=== PATIENT | female | born 1955 | race Caucasian/White ===

== ENCOUNTER → 2016-08-20 | Outpatient (CLI) | payer MEDICARE, OTHER ==
--- NOTE | 2016-08-20 15:20 | CT ---
EXAMINATION TYPE: CT chest w con DATE OF EXAM: 08/20/2016 COMPARISON: NONE HISTORY: Chest pains, chest wall pain CT DLP: 235.3 mGycm, Automated exposure control for dose reduction was used. CONTRAST: Performed injected with 100 mL of Omnipaque 300. TECHNIQUE: Axial images were obtained at 5 mm thick sections. Reconstructed images are reviewed on [employer] computer in the coronal plane. FINDINGS: Portion of the thyroid visualized is normal. No suspicious lung nodules or focal infiltrates are present. Some minimal scarring and possible pneum atocele may be within the right mid lung adjacent to the major fissure. No enlarged mediastinal or hilar adenopathy is evident. The ascending aorta diameter at the level o f the main pulmonary artery is 2.9 cm. The main pulmonary artery diameter at the bifurcation is 2.[address] sections are obtained through the upper abdomen. Abdomen is essentially unremarkable. IMPRESSIONS: 1. Normal Chest CT.
== END | disposition home or self-care (01) ==
LOC: RADCTMAIN 14:33
PROVIDERS: ATTEND Internal Medicine Critical Care Medicine
DX: R07.89 Other chest pain (principal); Z88.5 Allergy status to narcotic agent
CPT/HCPCS: 71260; Q9967

== ENCOUNTER → 2017-01-28 | Outpatient (CLI) | payer MEDICARE, OTHER ==
--- NOTE | 2017-01-28 13:11 | WWHP ---
[facility] - HISTORY AND PHYSICAL DATE OF SERVICE: 01/28/2017 CHIEF COMPLAINT: The patient is here for her routine gynecologic exam. HPI: This is a 61-year-old, G2, P2, with an LMP of 1995, who is status post SAEED for uterine fibroids. The patient states it has been more than 10 years since her last pelvic exam. She has noticed a vulvar growth for at least the last 6 months. She nicked this area shaving, which caused it to bleed and this brought it more to her attention. She states it is not painful. She occasionally rubs against it and this can be bothersome. There has been no drainage or redness. She states it is on the left side about a quarter of an inch from the inner labia. She states it is slightly less than dime size and also seems to have a skin tag growing from it. PAST MEDICAL HISTORY: COPD, seasonal allergies, and chronic back problems. MEDICATIONS: Benadryl 1 p.r.n., ibuprofen 200 mg p.r.n. ALLERGIES: CODEINE, which cause pruritus. PAST SURGICAL HISTORY: Lung surgery to drain an infection in 2008, appendectomy 2010, colonoscopy 2011, section x2. PAST OB HISTORY: x2. PAST SECURITIES CLERK HISTORY: She has no history of STDs. She is status post SAEED in 1995 for uterine fibroids and this was benign. She has never used HRT. SOCIAL HISTORY: She denies tobacco and drug use and rarely drinks alcohol about 2 drinks per year. She is and is not seeing anybody and is not sexually active for more than 2 years. She is considered disabled. FAMILY HISTORY: Son and father had diabetes. Mother and father had lung cancer and they were both smokers. Father also developed bone cancer. REVIEW OF SYSTEMS: She believes she has gained about 20 pounds over the last 2 years. She denies respiratory or cardiac problems. GI: She does have problems with constipation, especially with certain foods. PHYSICAL EXAM: Blood pressure 136/78, height 4 feet 11 inches, weight 152 pounds, temperature 97.5, pulse 80. This is a short-statured, well-nourished white female who is alert and oriented x3, in no acute distress. HEENT is within normal limits. NECK: Supple without mass or thyromegaly. CHEST AND LUNGS: Clear to auscultation. HEART: Regular rate and rhythm. Breasts are without mass or discharge. Axillary exam is negative for adenopathy. BACK: Negative for CVA tenderness. ABDOMEN: Soft, nontender, without palpable masses. PELVIC EXAM: External genitalia reveals a growth on the left side near the anterior aspect of the introitus. This is approximately 3 cm from the introitus. This is on the labia majora, lateral and inferior to the clitoris. This measures approximately 12 x 9 mm and is raised with a slightly irregular texture. There is also a smaller tag protruding from the medial aspect of the lesion which measures approximately 4 x 4 mm. This is nontender and nonerythematous. There is no drainage. External genitalia also reveals mild atrophy, but there are no other lesions. The vagina reveals mild atrophy without lesions. There is no evidence of prolapse. Bimanual exam reveals a central mass in the area of the cul-de-sac. This measures approximately 4 x 4 cm. This is somewhat firm and nontender. There are no other pelvic masses noted. Rectovaginal exam confirms a pelvic mass and this is not consistent with a rectal stool, but may represent colonic stool above the rectum. There are no rectal masses or tenderness and rectal exam is negative for occult blood. EXTREMITIES: Nontender. IMPRESSION: 1. A 61-year-old menopausal female status post total abdominal hysterectomy for benign reasons. 2. Vulvar lesion to the left of the midline measuring approximately 1.2 cm x 0.9 cm. 3. Pelvic mass noted on pelvic exam. Differential diagnoses will include colonic stool, ovarian growth or other non-SECURITIES CLERK mass. I believe this most likely represents colonic stool, especially with her history of constipation. PLAN: 1. Pap smears have been discontinued. 2. Self breast examination was discussed. 3. Mammogram is recommended and she states she has an appointment for this on 02/17/2017. An order slip was given to the patient for this. 4. The patient will be scheduled for pelvic ultrasound to further evaluate the pelvic mass. 5. The patient will be scheduled to have the vulvar growth removed and this will be sent to be sent for pathological examination at that time. 6. She will return in 1 year as well. MMODL / IJN: [id number] / [facility]
== END ==
LOC: WWCWWP 09:59
PROVIDERS: ATTEND Internal Medicine
DX: Z01.419 Encounter for gynecological examination (general) (routine) without abnormal findings (principal)

== ENCOUNTER → 2017-02-18 | Outpatient (CLI) | payer MEDICARE, OTHER ==
--- NOTE | 2017-02-18 11:48 | US ---
EXAMINATION TYPE: US transvaginal DATE OF EXAM: 02/18/2017 COMPARISON: NONE CLINICAL HISTORY: R19.00 Pelvic Mass. Hysterectomy (patient unsure if complete vs. partial), pelvic mass felt during pelvic exam, history of constipation TECHNIQUE: Transvaginal (TV) Date of LMP: unknown EXAM MEASUREMENTS: Uterus: Surgically absent Endometrial Stripe: Surgically absent Right Ovary: unable to visualize Left Ovary: unable to visualize 1. Uterus: Surgically absent 2. Endometrium: Surgically absent 3. Right Ovary: Obscured by overlying bowel gas vs. surgically absent 4. Left Ovary: Obscured by overlying bowel gas vs. surgically absent 5. Bilateral Adnexa: wnl Remnant uterus nor ovaries clearly identified. IMPRESSION: Unremarkable study.
--- NOTE | 2017-02-18 13:35 | P.PCN ---
Date of Procedure: 02/18/17 Preoperative Diagnosis: Symptomatic vulvar lesion of uncertain behavior Postoperative Diagnosis: Same Procedure(s) Performed: Excision of vulvar lesion Anesthesia: local Surgeon: Jun Mckenna Estimated Blood Loss (ml): 2 Pathology: other (Vulvar lesion) Condition: stable Disposition: same day Indications for Procedure: This was a 61-year-old menopausal female has noticed a vulvar growth for at least 6 months. She states this has become a problem for her since she nicked the area when shaving and this can cause bleeding. She feels it has gotten bigger over time. Operative Findings: The vulvar lesion was at the anterior left aspect of the vulva approximately 3 cm from the introitus lateral to the clitorus. It measured approximately [id number] mm and is raised with a slightly irregular texture. There is also an irregular tag protruding from the medial aspect of the lesion which measures approximately 4x4mm. Description of Procedure: The procedure as well as possible risks were discussed with the patient. All of her questions were answered. The patient was placed in the lithotomy position. The area was prepped with Betadine solution. Approximately 2 mL of 1 % lidocaine was used for local anesthesia. Following the termination of adequate anesthesia the lesion was excised with a scalpel. This was a full thickness excision. Silver nitrate was used to stop bleeding. 4-0 undyed Vicryl suture was used to close the incision in an interrupted fashion. Two stitches were placed and these were full thickness stitches. Hemostasis was obtained. Antibiotic ointment was applied and dressing with paper tape was also applied. The patient tolerated the procedure well. There were no complications.
== END | disposition home or self-care (01) ==
LOC: RADUSWWP 10:15
PROVIDERS: ATTEND Obstetrics & Gynecology
DX: A63.0 Anogenital (venereal) warts (principal)
CPT/HCPCS: 11422; 76830; 88305

== ENCOUNTER → 2017-05-28 | Outpatient (CLI) | payer MEDICARE, OTHER ==
--- NOTE | 2017-05-28 15:07 | NM ---
Nuclear medicine hepatobiliary scan. HISTORY: Pain. DOSAGE: The patient received 8 ounces ensure plus and 5.1 mCi of Technetium 99m Choletec. FINDINGS: There is normal hepatic extraction. The gallbladder is seen by 20 minutes. There is a pedro iary to bowel clearance not seen by 60 minutes. Ejection fraction is 21%. IMPRESSION: 1. Delayed biliary to bowel clearance with abnormal ejection fraction of 21%. Correlate for biliary d yskinesia.
== END | disposition home or self-care (01) ==
LOC: RADNMMAIN 12:58
PROVIDERS: ATTEND Surgery
DX: R93.2 Abnormal findings on diagnostic imaging of liver and biliary tract (principal); K81.1 Chronic cholecystitis
CPT/HCPCS: 78227; A9537; J2805

== ENCOUNTER 2017-06-11 09:04 | Day surgery (SDC) | payer MEDICARE, OTHER ==
[2017-06-10 10:18] VITALS: BMI 29.2
[~2017-06-11 09:04] MED LIST: DEXAMETHASONE SOD PHOSPHATE 10 MG/ML 1 ML VIAL IV ONE; FAMOTIDINE 20 MG/2 ML VIAL IV PRN; HEPARIN SODIUM,PORCINE 5,000 UNIT/ML 1 ML VIAL SQ ONE; LIDOCAINE 1% 20 ML VIAL (10MG/ML) FOR IV START INTRADERMA PRN; MIDAZOLAM 2 MG/2 ML VIAL IV PRN; ONDANSETRON 4 MG/2 ML VIAL IVP ONE; ceFAZolin IN SWFI 2 GM/20 ML SYRINGE IVP ONE; fentaNYL (PF) 50 MCG/ML 2 ML AMP IV PRN
[2017-06-11] MEDS: LACTATED RINGERS 1,000 ML IV SCH (10:11)
[2017-06-11] MEDS ORDERED: LIDOCAINE 1% 20 ML VIAL (10MG/ML) FOR IV START INTRADERMA ONE (10:11)
[2017-06-11] MEDS ORDERED: SCOPOLAMINE 1.5MG/72HR PATCH TRANSDERM ONE (10:21)
--- NOTE | 2017-06-11 10:47 | P.GSHP ---
History of Present Illness H&P Date: 06/11/17 Chief Complaint: Right upper quadrant pain This a 61-year-old female who presents today for laparoscopic cholecystectomy. His abdominal pain. Her recent HIDA scan shows abnormal ejection fraction consistent with chronic cholecystitis. Past Medical History Past Medical History: COPD, Osteoarthritis (OA) Additional Past Medical History / Comment(s): anemia, vertigo, occasional heartburn History of Any Multi-Drug Resistant Organisms: None Reported Past Surgical History: Appendectomy, Section, Hysterectomy, Orthopedic Surgery Additional Past Surgical History / Comment(s): 2007-lung surg- "scraped inside of lung, had pneumonia really bad" Past Anesthesia/Blood Transfusion Reactions: No Reported Reaction Past Psychological History: No Psychological Hx Reported Smoking Status: Never smoker Past Alcohol Use History: None Reported Past Drug Use History: None Reported - Past Family History Father Family Medical History: Cancer, Diabetes Mellitus Mother Additional Family Medical History / Comment(s): emphysema Son(s) Family Medical History: Diabetes Mellitus, Dialysis Medications and Allergies Home Medications Medication Instructions Recorded Confirmed Type Pantoprazole [Protonix] 40 mg PO DAILY #30 tablet. 04/22/17 06/10/17 Rx Acetaminophen Tab [Tylenol Tab] 500 mg PO Q6H PRN 06/10/17 06/10/17 History Multivit-Min/FA/Lycopen/Lutein 1 each PO DAILY 06/10/17 06/10/17 History [Centrum Silver Tablet] Allergies Allergy/AdvReac Type Severity Reaction Status Date / Time codeine Allergy Itching Verified 06/10/17 10:03 Tetracyclines AdvReac Abdominal Verified 06/10/17 10:03 Pain Surgical - Exam Vital Signs Temp Pulse Resp BP Pulse Ox 96.8 F L 54 L 18 156/83 100 06/11/17 10:08 06/11/17 10:08 06/11/17 10:08 06/11/17 10:08 06/11/17 10:08 - General well developed, no distress - Eyes PERRL - ENT normal pinna - Neck no masses - Respiratory normal expansion - Cardiovascular Rhythm: regular - Abdomen Abdomen: soft, non tender Assessment and Plan Assessment: Chronic cholecystitis. We'll perform laparoscopically cholecystectomy
[2017-06-11] MEDS ORDERED: VECURONIUM 10 MG VIAL IV ONE (10:54)
[2017-06-11] MEDS ORDERED: MORPHINE SULFATE 10 MG/ML SYRINGE ONE (10:54)
[2017-06-11] MEDS ORDERED: MIDAZOLAM 2 MG/2 ML VIAL ONE (10:54)
[2017-06-11] MEDS ORDERED: fentaNYL (PF) 50 MCG/ML 2 ML AMP ONE (10:54)
[2017-06-11] MEDS ORDERED: PROPOFOL 10 MG/ML 20 ML VIAL IV ONE (10:54)
[2017-06-11] MEDS ORDERED: NEOSTIGMINE 1 MG/ML 10 ML VIAL ONE (10:54)
[2017-06-11] MEDS ORDERED: LIDOCAINE 1% INJ 10MG/ML (20 ML MDV) ONE (10:54)
[2017-06-11] MEDS ORDERED: NALOXONE 0.4 MG/ML 1 ML VIAL ONE (10:54)
[2017-06-11] MEDS ORDERED: hydrALAZINE HCL 20 MG/ML 1 ML VIAL ONE (10:54)
[2017-06-11] MEDS ORDERED: GLYCOPYRROLATE 0.2 MG/ML 2 ML VIAL ONE (10:54)
[2017-06-11] MEDS ORDERED: KETOROLAC 30 MG/ML 1 ML VIAL ONE (10:54)
[2017-06-11] MEDS ORDERED: BUPIVACAINE (PF) 0.25% 30 ML VIAL SQ ONE ×2 (11:06→11:07)
[2017-06-11] MEDS ORDERED: LACTATED RINGERS 1,000 ML IV ONE (11:29)
[2017-06-11] MEDS ORDERED: NALOXONE 0.4 MG/ML 1 ML VIAL IV PRN (11:29)
[2017-06-11] MEDS ORDERED: MORPHINE SULFATE/PF 10MG/10ML VL IVP PRN (11:29)
--- NOTE | 2017-06-11 11:29 | P.OP ---
Date of Procedure: 06/11/17 Preoperative Diagnosis: Cholecystitis Postoperative Diagnosis: Cholecystitis Procedure(s) Performed: Laparoscopic cholecystectomy Anesthesia: ONIEL Surgeon: Ion Olson Estimated Blood Loss (ml): 5 Pathology: other (Gallbladder) Condition: stable Disposition: PACU Description of Procedure: The patient was placed on the operating table. The patient received a general endotracheal tube anesthesia. The patients abdomen was prepped and draped in the usual sterile fashion. Through an infraumbilical stab incision, the fascia of the anterior abdominal wall was grasped with a pair of Kochers and then the Veress needle was placed in the peritoneal cavity. Position of the Veress needle was confirmed with positive drop test. The abdomen was then insufflated. After adequate insufflation, the 10 mm trocar was placed in the peritoneal cavity. Following this the laparoscope was placed in the peritoneal cavity. The patient was placed in the head-up, right side up position and then a 5 mm trocar was placed in the right lateral and right subcostal position under direct visualization. A 8 mm trocar was placed in the epigastric position. The gallbladder was grasped in the fundus and infundibulum. Traction on the gallbladder was placed in the lateral and the cephalad positions. The triangle of Calot was visualized.. The cystic duct was bluntly dissected until the union of the cystic duct and common bile duct was seen. The cystic duct was then divided and sealed with the Harmonic scissors. A PDS Endoloop was then placed throughout the cystic duct stump. The cystic artery divided and sealed with the Harmonic scissors. The gallbladder was then removed from the liver bed using Harmonic scissors. The gallbladder was then extracted through the epigastric port site. Operative field was checked for any bleeding spots and Harmonic scissors was used to coagulate the liver bed. The abdomen was irrigated. The trocars were removed. The skin was closed using interrupted 3-0 Vicryl suture. Dermabond dressing were applied. The patient tolerated the procedure well.
[2017-06-11] MEDS ORDERED: diphenhydrAMINE 50 MG/ML 1 ML VIAL IVP ONE (11:52)
[2017-06-11] MEDS: KETOROLAC 30 MG/ML 1 ML VIAL IVP SCH ×3 (13:49→23:04)
[2017-06-11] MEDS: HYDROcodone/APAP 5-325MG 1 EACH TAB PO PRN (18:47)
[2017-06-12] MEDS: KETOROLAC 30 MG/ML 1 ML VIAL IVP SCH ×2 (05:11→11:53)
[2017-06-12] MEDS: LACTATED RINGERS 1,000 ML IV SCH (06:28)
[2017-06-12] MEDS ORDERED: ENOXAPARIN 40 MG/0.4 ML SYRINGE SQ SCH (09:00)
--- NOTE | 2017-06-12 13:11 | P.DS ---
Providers Expected date of discharge: 06/12/17 Attending physician: Ion Olson Consults: 06/11/17 11:30 Consult Physician Routine Consulting Provider: Krystle Prieto Consult Reason/Comments: Medical management Do you want consulting provider notified?: Yes Primary care physician: Ephraim Vergara [facility] Course: 61-year-old female who presented for workup of a recent HIDA scan that showed an abnormal ejection fraction consistent with chronic cholecystitis. Patient underwent laparoscopic cholecystectomy done on June 11. No postop events. The day of discharge pain medication effective for pain control patient was ambulatory on the unit surgical incision sites were dry patient was felt to be stable and appropriate proceed with a discharge to home Impression discharge diagnosis Right upper quadrant pain suspect due to chronic cholecystitis Abnormal HIDA scan showing findings of an abnormal ejection consistent with chronic cholecystitis Postop laparoscopic cholecystectomy for chronic cholecystitis done on June 11 The above impression and plan of care have been discussed and directed by signing physician. Chasity Liz nurse practitioner acting as scribe for signing physician. Plan - Discharge Summary Discharge Rx Participant: Yes New Discharge Prescriptions: New Doxycycline Monohydrate [Monodox] 100 mg PO BID 3 Days #6 cap HYDROcodone/APAP 5-325MG [Wister 5-325] 1 each PO Q4H PRN #15 tab PRN Reason: Moderate To Severe Pain Continue Pantoprazole [Protonix] 40 mg PO DAILY #30 tablet. Multivit-Min/FA/Lycopen/Lutein [Centrum Silver Tablet] 1 each PO DAILY Acetaminophen Tab [Tylenol] 500 mg PO Q6H PRN PRN Reason: Pain Discharge Medication List Pantoprazole [Protonix] 40 mg PO DAILY #30 tablet. 04/22/17 [Rx] Acetaminophen Tab [Tylenol] 500 mg PO Q6H PRN 06/10/17 [History] Multivit-Min/FA/Lycopen/Lutein [Centrum Silver Tablet] 1 each PO DAILY 06/10/17 [History] Doxycycline Monohydrate [Monodox] 100 mg PO BID 3 Days #6 cap 06/12/17 [Rx] HYDROcodone/APAP 5-325MG [Wister 5-325] 1 each PO Q4H PRN #15 tab 06/12/17 [Rx] Follow up Appointment(s)/Referral(s): Jai Ye MD [Primary Care Provider] - 1 Week Ion Olson MD [STAFF PHYSICIAN] - 1 Week Patient Instructions/Handouts: *Surgery [facility] - ([facility]) Laparoscopic Cholecystectomy, *Surgery [facility] - (Anesthesia) Discharge Instructions Outpatient Surgery Activity/Diet/Wound Care/Special Instructions: No tub bath for six weeks. Shower daily. No lifting over 10 pounds for the next 6 weeks. Avoid episodes of constipation use [id number] stool softeners if needed. May use ice packs to surgical site. No driving while taking narcotic for pain. Discharge Disposition: HOME SELF-CARE
[2017-06-12] MEDS: HYDROcodone/APAP 5-325MG 1 EACH TAB PO PRN (13:49)
--- NOTE | 2017-06-12 14:24 | P.CONS ---
History of Present Illness - Reason for Consult Recommendations regarding antibiotics - History of Present Illness Patient was admitted for elective cholecystectomy patient's accessory underwent surgery no overnight events patient is ready to be discharged today and is being discharged today patient is comparing of cough with yellowish sputum production. Patient may have atelectasis leading to cough. Because of the concerns that patient has all give her 3 days of doxycycline to treat for bronchitis. Patient denied any dysuria nausea vomiting. Review of Systems REVIEW OF SYSTEMS: CONSTITUTIONAL: No fever, no malaise, no fatigue. HEENT: No recent visual problems or hearing problems. Denied any sore throat. CARDIOVASCULAR: No chest pain, orthopnea, PND, no palpitations, no syncope. PULMONARY: No shortness of breath, GASTROINTESTINAL: No diarrhea, no nausea, no vomiting, no abdominal pain. Normoactive bowel sounds. NEUROLOGICAL: No headaches, no weakness, no numbness. HEMATOLOGICAL: Denies any bleeding or petechiae. GENITOURINARY: Denies any burning micturition, frequency, or urgency. MUSCULOSKELETAL/RHEUMATOLOGICAL: Denies any joint pain, swelling, or any muscle pain. ENDOCRINE: Denies any polyuria or polydipsia. The rest of the 14-point review of systems is negative. Past Medical History Past Medical History: COPD, Osteoarthritis (OA) Additional Past Medical History / Comment(s): anemia, vertigo, occasional heartburn History of Any Multi-Drug Resistant Organisms: None Reported Past Surgical History: Appendectomy, Section, Hysterectomy, Orthopedic Surgery Additional Past Surgical History / Comment(s): 2007-lung surg right lung - "scraped inside of lung, had pneumonia really bad" Past Anesthesia/Blood Transfusion Reactions: No Reported Reaction Past Psychological History: No Psychological Hx Reported Smoking Status: Never smoker Past Alcohol Use History: None Reported Past Drug Use History: None Reported - Past Family History Father Family Medical History: Cancer, Diabetes Mellitus Additional Family Medical History / Comment(s): lung cancer Mother Additional Family Medical History / Comment(s): emphysema Son(s) Family Medical History: Diabetes Mellitus, Dialysis Medications and Allergies Home Medications Medication Instructions Recorded Confirmed Type Pantoprazole [Protonix] 40 mg PO DAILY #30 tablet. 04/22/17 06/10/17 Rx Acetaminophen Tab [Tylenol] 500 mg PO Q6H PRN 06/10/17 06/10/17 History Multivit-Min/FA/Lycopen/Lutein 1 each PO DAILY 06/10/17 06/10/17 History [Centrum Silver Tablet] Doxycycline Monohydrate [Monodox] 100 mg PO BID 3 Days #6 cap 06/12/17 Rx HYDROcodone/APAP 5-325MG [[place] 1 each PO Q4H PRN #15 tab 06/12/17 Rx 5-325] Allergies Allergy/AdvReac Type Severity Reaction Status Date / Time codeine Allergy Itching Verified 06/10/17 10:03 Tetracyclines AdvReac Abdominal Verified 06/10/17 10:03 Pain Physical Exam Vitals: Vital Signs Temp Pulse Pulse Resp BP Pulse Ox 06/12/17 09:23 97 06/12/17 08:00 20 06/12/17 07:41 98.2 F 56 L 20 120/65 96 06/12/17 00:05 98.2 F 58 L 16 117/58 96 06/11/17 20:00 98.3 F 62 18 141/78 94 L 06/11/17 15:30 49 L 122/74 06/11/17 15:15 53 L 117/72 06/11/17 15:00 56 L 117/67 06/11/17 14:45 60 106/63 06/11/17 14:30 55 L 112/68 Intake and Output 06/11/17 06/12/17 06/12/17 22:59 06:59 14:59 Intake Total 160 236 Balance 160 236 Intake: Intake, IV Titration 160 Amount Lactated Ringers 1,000 ml 160 @ 20 mls/hr IV .Q24H [facility] Rx#:[id number] Oral 236 Other: Voiding Method Toilet Toilet # Voids 1 1 PHYSICAL EXAMINATION: GENERAL: The patient is alert and oriented x3, not in any acute distress. Well developed, well nourished. HEENT: Pupils are round and equally reacting to light. EOMI. No scleral icterus. No conjunctival pallor. Normocephalic, atraumatic. No pharyngeal erythema. No thyromegaly. CARDIOVASCULAR: S1 and S2 present. No murmurs, rubs, or gallops. PULMONARY: Chest is clear to auscultation, no wheezing or crackles. ABDOMEN: Soft, nontender, nondistended, normoactive bowel sounds. No palpable organomegaly. MUSCULOSKELETAL: No joint swelling or deformity. EXTREMITIES: No cyanosis, clubbing, or pedal edema. NEUROLOGICAL: Gross neurological examination did not reveal any focal deficits. SKIN: No rashes. Assessment and Plan Plan: -Possibility Bronchitis and possible atelectasis: Patient will be discharged on 3 days of that segment. -Status post a cholecystectomy for biliary sludge and the patient is clinically doing well did them has gas and is being discharged today pain management as per surgical services. Patient is medically stable to be discharged
[2017-06-12] MEDS ORDERED: HYDROmorphone 2 MG TAB PO PRN (14:58)
[2017-06-12 15:21] VITALS: BP 149/75; PULSE 58; RESP 18; TEMP 99
== END 2017-06-12 15:37 | disposition home or self-care (01) ==
LOC: OR 09:04 → 3SUR 11:42 → OR 06-12 15:37
PROVIDERS: ATTEND Surgery
DX: K81.1 Chronic cholecystitis (principal); J44.9 Chronic obstructive pulmonary disease, unspecified; M19.90 Unspecified osteoarthritis, unspecified site; K21.9 Gastro-esophageal reflux disease without esophagitis; Z79.899 Other long term (current) drug therapy; Z88.5 Allergy status to narcotic agent; Z88.1 Allergy status to other antibiotic agents
CPT/HCPCS: 88304; 47562; J1200; J1644; J1100; J2405; J1650; J1885 ×2

== ENCOUNTER 2018-06-25 11:13 | Emergency (ER) | payer MEDICARE, OTHER ==
--- NOTE | 2018-06-25 11:40 | ED ---
Extremity Problem HPI - General Chief complaint: Extremity Problem,Nontraumatic Stated complaint: Lower Leg Pain Time Seen by Provider: 06/25/18 11:21 Source: patient, RN notes reviewed Mode of arrival: ambulatory Limitations: no limitations - History of Present Illness Initial comments: 62-year-old female presents emergency Department chief complaint of right leg pain. Patient states it has worsened over the last week denies any trauma. Patient is concerned about possible DVT. Patient has no history DVT or PE. Patient states that it is slightly worse when she walks or stands struck the day. She states she feels the pain behind her knee and her proximal calf region. She states it feels a charley horse. - Related Data Home Medications Medication Instructions Recorded Confirmed Multivit-Min/FA/Lycopen/Lutein 1 tab PO DAILY 06/10/17 06/25/18 [Centrum Silver Tablet] Ibuprofen [Motrin Ib] 400 mg PO Q6H PRN 06/25/18 06/25/18 Naproxen Sodium [Aleve] 220 mg PO DAILY PRN 06/25/18 06/25/18 Allergies Allergy/AdvReac Type Severity Reaction Status Date / Time codeine Allergy Itching Verified 06/25/18 11:44 Tetracyclines AdvReac Abdominal Verified 06/25/18 11:44 Pain Review of Systems ROS Statement: Those systems with pertinent positive or pertinent negative responses have been documented in the HPI. ROS Other: All systems not noted in ROS Statement are negative. Past Medical History Past Medical History: COPD, Osteoarthritis (OA) Additional Past Medical History / Comment(s): anemia, vertigo, occasional heartburn History of Any Multi-Drug Resistant Organisms: None Reported Past Surgical History: Appendectomy, Section, Cholecystectomy, Hysterectomy, Orthopedic Surgery Additional Past Surgical History / Comment(s): 2008-lung surg right lung - "scraped inside of lung, had pneumonia really bad" Past Anesthesia/Blood Transfusion Reactions: No Reported Reaction Past Psychological History: No Psychological Hx Reported Smoking Status: Never smoker Past Alcohol Use History: None Reported Past Drug Use History: None Reported - Past Family History Father Family Medical History: Cancer, Diabetes Mellitus Additional Family Medical History / Comment(s): lung cancer Mother Additional Family Medical History / Comment(s): emphysema Son(s) Family Medical History: Diabetes Mellitus, Dialysis General Exam Limitations: no limitations General appearance: alert, in no apparent distress Head exam: Present: atraumatic, normocephalic, normal inspection Respiratory exam: Present: normal lung sounds bilaterally. Absent: respiratory distress, wheezes, rales, rhonchi, stridor Cardiovascular Exam: Present: regular rate, normal rhythm, normal heart sounds. Absent: systolic murmur, diastolic murmur, rubs, gallop, clicks Extremities exam: Present: other (Tenderness the right, right popliteal region for range of motion neurovascular intact with equal pedal pulses no discoloration no discrepancy in temperature) Skin exam: Present: warm, dry, intact, normal color. Absent: rash Course Vital Signs 06/25/18 11:17 Temperature 98 F Pulse Rate 68 Respiratory 22 Rate Blood Pressure 153/89 O2 Sat by Pulse 99 Oximetry Medical Decision Making - Medical Decision Making 62-year-old female sent in for right leg, posterior knee pain. Patient's symptoms are consistent with a Parish's cyst negative for acute DVT. Patient will be discharged with follow-up with orthopedics return parameters were discussed. Disposition Clinical Impression: Leg pain, Bakers cyst Disposition: HOME SELF-CARE Condition: Stable Instructions (If sedation given, give patient instructions): Bakers Cyst (ED) Additional Instructions: Please return to the Emergency Department if symptoms worsen or any other concerns. Is patient prescribed a controlled substance at d/c from ED?: No Referrals: Jai Ye MD [Primary Care Provider] - 1-2 days Aric Shannon DO [Doctor of Osteopathic Medicine] - 1-2 days Time of Disposition: 12:39
[2018-06-25] MEDS ORDERED: KETOROLAC 60 MG/2 ML VIAL IM STA (12:11)
--- NOTE | 2018-06-25 12:17 | US ---
EXAMINATION TYPE: US venous doppler duplex LE RT DATE OF EXAM: 06/25/2018 11:34 AM COMPARISON: CLINICAL HISTORY: Pain. Generalized leg pain. No redness or swelling. No hx of blood clots or blood thinners. SIDE PERFORMED: Right TECHNIQUE: The lower extremity deep venous system is examined utilizing real time linear array sonog lina with graded compression, doppler sonography and color-flow sonography. VESSELS IMAGED: External Iliac Vein (EIV) Common Femoral Vein Deep Femoral Vein Greater Saphenous Vein * Femoral Vein Popliteal Vein Small Saphenous Vein * Proximal Calf Veins (* superficial vessels) Right Leg: Negative for DVT IMPRESSION: 1. No diagnostic evidence of DVT.
[2018-06-25] MEDS ORDERED: traMADol 50 MG STARTER PACK 3 TAB BTL PO STA (12:38)
[2018-06-25 13:06] VITALS: BP 127/74; PULSE 78; RESP 16; TEMP 98.1
== END 2018-06-25 13:04 | disposition home or self-care (01) ==
LOC: EC 11:13
DX: M71.21 Synovial cyst of popliteal space [Baker], right knee (principal); Z88.1 Allergy status to other antibiotic agents; Z88.5 Allergy status to narcotic agent
CPT/HCPCS: 93971; 99283; 96372; J1885

== ENCOUNTER 2018-06-30 12:48 | Emergency (ER) | payer MEDICARE ==
[2018-06-30 13:13] VITALS: TEMP 98.4
--- NOTE | 2018-06-30 14:48 | ED ---
General Adult HPI - General Chief complaint: Extremity Problem,Nontraumatic Stated complaint: Foot numbness Time Seen by Provider: 06/30/18 14:26 Source: patient, RN notes reviewed Mode of arrival: wheelchair Limitations: no limitations - History of Present Illness Initial comments: 62-year-old female presents to the emergency department for a chief complaint of right leg pain for about 1.5 weeks. Patient states the pain was a cramping in the calf and is now behind the right knee. Patient states her right foot feels numb as well and this started today. She states she has been keeping it elevated. Patient states she had an appointment with orthopedics for tomorrow but canceled this because she thought we could remove the Parish's cyst in the e mergency department today.Patient has no other complaints at this time including shortness of breath, chest pain, abdominal pain, nausea or vomiting, headache, or visual changes. - Related Data Home Medications Medication Instructions Recorded Confirmed Multivit-Min/FA/Lycopen/Lutein 1 tab PO DAILY 06/10/17 06/25/18 [Centrum Silver Tablet] Ibuprofen [Motrin Ib] 400 mg PO Q6H PRN 06/25/18 06/25/18 Naproxen Sodium [Aleve] 220 mg PO DAILY PRN 06/25/18 06/25/18 Allergies Allergy/AdvReac Type Severity Reaction Status Date / Time codeine Allergy Itching Verified 06/30/18 13:13 Tetracyclines AdvReac Abdominal Verified 06/30/18 13:13 Pain Review of Systems ROS Statement: Those systems with pertinent positive or pertinent negative responses have been documented in the HPI. ROS Other: All systems not noted in ROS Statement are negative. Past Medical History Past Medical History: COPD, Osteoarthritis (OA) Additional Past Medical History / Comment(s): anemia, vertigo, occasional heartburn History of Any Multi-Drug Resistant Organisms: None Reported Past Surgical History: Appendectomy, Section, Cholecystectomy, Hy sterectomy, Orthopedic Surgery Additional Past Surgical History / Comment(s): 2007-lung surg right lung - "scraped inside of lung, had pneumonia really bad" Past Anesthesia/Blood Transfusion Reactions: No Reported Reaction Past Psychological History: No Psychological Hx Reported Smoking Status: Never smoker Past Alcohol Use History: None Reported Past Drug Use History: None Reported - Past Family History Father Family Medical History: Cancer, Diabetes Mellitus Additional Family Medical History / Comment(s): lung cancer Mother Additional Family Medical History / Comment(s): emphysema Son(s) Family Medical History: Diabetes Mellitus, Dialysis General Exam Limitations: no limitations General appearance: alert, in no apparent distress Head exam: Present: atraumatic, normocephalic, normal inspection Eye exam: Present: normal appearance, PERRL, EOMI. Absent: scleral icterus, conjunctival injection, periorbital swelling ENT exam: Present: normal exam, mucous membranes moist Neck exam: Present: normal inspection, full ROM. Absent: tenderness, meningismus, lymphadenopathy Respiratory exam: Present: normal lung sounds bilaterally. Absent: respiratory distress, wheezes, rales, rhonchi, stridor Cardiovascular Exam: Present: regular rate, normal rhythm, normal heart sounds. Absent: systolic murmur, diastolic murmur, rubs, gallop, clicks Extremities exam: Present: full ROM (Patient has full flexion and extension noted in the right knee and ankle.), tenderness (Due to started to the right calf and posterior knee, no tenderness noted in the groin or anterior knee.), normal capillary refill (Capillary refill less than 2 seconds, DP pulse 2+ in the right lower extremity and equal to the left lower extremity), calf tenderness (Patient does have calf tenderness without erythema or edema present.), other (Patient is intact in the right lower extremity). Absent: joint swelling (No edema, erythema, ecchymosis noted of the right lower extremity) Course Vital Signs 06/30/18 06/30/18 06/30/18 13:09 15:21 15:36 Temperature 98.4 F Pulse Rate 72 86 63 Respiratory 16 18 18 Rate Blood Pressure 218/94 152/83 201/97 O2 Sat by Pulse 98 98 97 Oximetry 06/30/18 17:30 Temperature Pulse Rate 60 Respiratory 18 Rate Blood Pressure 182/93 O2 Sat by Pulse 98 Oximetry Medical Decision Making - Medical Decision Making 62-year-old female presents to the emergency department for a chief complaint of right leg pain. Patient states this started in her calf and is now in her posterior knee. On exam patient is full range motion of the right knee. No erythema or edema present in the right lower extremity. Neurovascular status is intact. DP pulses 2+ in the right lower extremity. Patient was complaining of right leg tingling however has full sensation. Ultrasound was repeated. Patient did have an ultrasound done 5 days ago which was negative for DVT. This was repeated today again negative for DVT. At this time I do not see an emergent cause for leg pain. Patient should follow up with orthopedics at her appointment tomorrow. She should return here if she has any worsening symptoms. Disposition Clinical Impression: Leg pain, left Disposition: HOME SELF-CARE Condition: Good Instructions (If sedation given, give patient instructions): Leg Pain (ED) Additional Instructions: Please take Motrin and Tylenol for pain. Please follow-up with primary care or orthopedics in 1-2 days. Return here to the emergency department if you have any worsening symptoms. Is patient prescribed a controlled substance at d/c from ED?: No Referrals: Jai Ye MD [Primary Care Provider] - 1-2 days Roney De La Rosa MD [STAFF PHYSICIAN] - 1-2 days Time of Disposition: 14:47
[2018-06-30 15:21] VITALS: RESP 18
[2018-06-30] MEDS ORDERED: MORPHINE SULFATE 4 MG/ML SYRINGE IM STA (15:54)
--- NOTE | 2018-06-30 17:05 | US ---
EXAMINATION TYPE: US venous doppler duplex LE RT DATE OF EXAM: 06/30/2018 4:39 PM COMPARISON: US 5 days ago CLINICAL HISTORY: Pain. right popliteal fossa pain SIDE PERFORMED: Right TECHNIQUE: The lower extremity deep venous system is examined utilizing real time linear array sonog lina with graded compression, doppler sonography and color-flow sonography. VESSELS IMAGED: Common Femoral Vein Deep Femoral Vein Greater Saphenous Vein * Femoral Vein Popliteal Vein Small Saphenous Vein * Proximal Calf Veins (* superficial vessels) Right Leg: Negative for DVT; Negative for popliteal Fossa Cyst. IMPRESSION: Normal right leg duplex venous sonogram. No evidence of popliteal cyst.
[2018-06-30 17:40] VITALS: BP 182/93; PULSE 60
== END 2018-06-30 19:06 | disposition home or self-care (01) ==
LOC: EC 12:48
DX: M79.604 Pain in right leg (principal); R20.0 Anesthesia of skin; R20.2 Paresthesia of skin; Z88.5 Allergy status to narcotic agent; Z88.1 Allergy status to other antibiotic agents
CPT/HCPCS: 93971; 99284; 96372; J2270

== ENCOUNTER 2018-11-29 13:40 | Emergency (ER) | payer MEDICARE ==
[2018-11-29 13:43] VITALS: TEMP 98.1
[2018-11-29] MEDS ORDERED: ONDANSETRON ODT 4 MG TAB PO STA (13:54)
[2018-11-29] MEDS ORDERED: KETOROLAC 60 MG/2 ML VIAL IM STA (13:54)
[2018-11-29] MEDS ORDERED: ORPHENADRINE 30 MG/ML 2 ML VIAL IM STA (13:55)
--- NOTE | 2018-11-29 13:58 | ED ---
General Adult HPI - General Chief complaint: Back Pain/Injury Stated complaint: Sciatica Pain, Nausea Time Seen by Provider: 11/29/18 13:46 Source: patient, RN notes reviewed Mode of arrival: ambulatory Limitations: no limitations - History of Present Illness Initial comments: Patient is a pleasant 63-year-old female presenting to the emergency Department with complaints of right sciatic pain. Patient does have history of old injury with a chip fracture. Symptoms have been severe over the past month or more. Patient has discomfort right sciatic region with radiation down her right leg. Patient does complain of tingling. No loss of sensation. No weakness. No incontinence or retention of bowel or bladder. Patient does have nausea associated with the discomfort. - Related Data Home Medications Medication Instructions Recorded Confirmed Multivit-Min/FA/Lycopen/Lutein 1 tab PO DAILY 06/10/17 11/29/18 [Centrum Silver Tablet] Previous Rx's Medication Instructions Recorded Cyclobenzaprine [Flexeril] 10 mg PO TID PRN #12 tablet 11/29/18 methylPREDNISolone Dose Pack 24 mg PO DAILY #1 tab 11/29/18 [Medrol Dose Pack] Allergies Allergy/AdvReac Type Severity Reaction Status Date / Time codeine Allergy Itching Verified 11/29/18 14:01 Tetracyclines AdvReac Abdominal Verified 11/29/18 14:01 Pain Review of Systems ROS Statement: Those systems with pertinent positive or pertinent negative responses have been documented in the HPI. ROS Other: All systems not noted in ROS Statement are negative. Constitutional: Denies: fever Eyes: Denies: eye pain ENT: Denies: ear pain Respiratory: Denies: cough Cardiovascular: Denies: chest pain Endocrine: Denies: fatigue Gastrointestinal: Denies: abdominal pain Genitourinary: Denies: dysuria Musculoskeletal: Reports: as per HPI, back pain Skin: Denies: rash Neurological: Denies: weakness Past Medical History Past Medical History: COPD, Osteoarthritis (OA) Additional Past Medical History / Comment(s): anemia, vertigo, occasional heartburn History of Any Multi-Drug Resistant Organisms: None Reported Past Surgical History: Appendectomy, Section, Cholecystectomy, Hysterectomy, Orthopedic Surgery Additional Past Surgical History / Comment(s): 2007-lung surg right lung - "scraped inside of lung, had pneumonia really bad" Past Anesthesia/Blood Transfusion Reactions: No Reported Reaction Past Psychological History: No Psychological Hx Reported Smoking Status: Never smoker Past Alcohol Use History: None Reported Past Drug Use History: None Reported - Past Family History Father Family Medical History: Cancer, Diabetes Mellitus Additional Family Medical History / Comment(s): lung cancer Mother Additional Family Medical History / Comment(s): emphysema Son(s) Family Medical History: Diabetes Mellitus, Dialysis General Exam Limitations: no limitations General appearance: alert, in no apparent distress Head exam: Present: atraumatic Eye exam: Present: normal appearance Neck exam: Present: normal inspection Respiratory exam: Present: normal lung sounds bilaterally Cardiovascular Exam: Present: regular rate, normal rhythm Expanded Peripheral pulses: 2+: Posterior Tibialis (R), Posterior Tibialis (L), Dorsalis Pedis (R), Dorsalis Pedis (L) GI/Abdominal exam: Present: soft. Absent: distended, tenderness, pulsatile mass Extremities exam: Present: normal inspection Back exam: Present: tenderness (Tenderness just lateral to the right sciatic region) Neurological exam: Present: alert. Absent: motor sensory deficit Expanded Motor strength exam: RLE: 5, LLE: 5 Psychiatric exam: Present: normal affect, normal mood Skin exam: Present: normal color Course Vital Signs 11/29/18 11/29/18 13:41 15:20 Temperature 98.1 F 98.1 F Pulse Rate 73 59 L Respiratory 18 17 Rate Blood Pressure 190/118 186/80 O2 Sat by Pulse 97 97 Oximetry Medical Decision Making - Medical Decision Making Patient reevaluated and resting comfortably in bed. Patient feels somewhat better. Blood pressure improved. Patient updated on results and need for follow-up. - Radiology Data Radiology results: report reviewed (Abdominal ultrasound reveals no acute process) Disposition Clinical Impression: Sciatica Disposition: HOME SELF-CARE Condition: Stable Instructions (If sedation given, give patient instructions): Sciatica (ED) Additional Instructions: Please follow-up with primary care physician in the next couple days for recheck. Consider physical therapy. Return for weakness, loss of control of bowel or bladder, worsening symptoms or other concerns. Please have primary care physician review blood pressure. Your prescription has been sent to [email or web address] Prescriptions: Cyclobenzaprine [Flexeril] 10 mg PO TID PRN #12 tablet PRN Reason: Pain methylPREDNISolone Dose Pack [Medrol Dose Pack] 24 mg PO DAILY #1 tab Is patient prescribed a controlled substance at d/c from ED?: No Referrals: Jai Ye MD [Primary Care Provider] - 1-2 days Time of Disposition: 15:35
--- NOTE | 2018-11-29 14:50 | US ---
EXAMINATION TYPE: US duplex aorta DATE OF EXAM: 11/29/2018 COMPARISON: NONE CLINICAL HISTORY: Back pain, evaluate aorta. EXAM MEASUREMENTS: Abdominal Aorta: Proximal: 1.7cm Mid: 1.5cm Distal: 1.0cm Bifurcation: 0.7cm 0.7cm Intimal thickening and atherosclerotic plaque suggested. IMPRESSION: Atherosclerotic changes with the aorta measuring within normal limits for size. If there is concern for aortic dissection than a dedicated CT scan would be recommended.
[2018-11-29 15:21] VITALS: BP 186/80; PULSE 59; RESP 17
== END 2018-11-29 15:56 | disposition home or self-care (01) ==
LOC: EC 13:40
DX: M54.31 Sciatica, right side (principal); R11.0 Nausea; R20.2 Paresthesia of skin; Z88.1 Allergy status to other antibiotic agents; Z88.5 Allergy status to narcotic agent
CPT/HCPCS: 93979; 99283; 96372 ×2; J2360; J1885

== ENCOUNTER 2019-02-27 13:14 | Emergency (ER) | payer MEDICARE ==
[2019-02-27 13:28] VITALS: RESP 18; TEMP 98.2
[2019-02-27] MEDS ORDERED: LORazepam 2 MG/ML INJ IV STA (13:43)
[2019-02-27] MEDS ORDERED: KETOROLAC 30 MG/ML 1 ML VIAL IVP STA (13:43)
--- NOTE | 2019-02-27 13:45 | ED ---
Back Pain HPI - General Chief Complaint: Back Pain/Injury Stated Complaint: Back pain Time Seen by Provider: 02/27/19 13:32 Source: patient Limitations: no limitations - History of Present Illness Initial Comments: This is a 63-year-old female history of sciatica who has had injections in her back in November this year who presents with complaints of right-sided pain in her low back and radiates all rebound or foot. His been coming for last day or so. She denies any dysuria and trouble bowel movements. Pain is very severe sharp in nature somewhat hernia also. Has/10 severity. She doesn't do much lifting she states except she does lift her grandchildren. No other modifying factors no other trauma. MD Complaint: back pain - Related Data Home Medications Medication Instructions Recorded Confirmed Multivit-Min/FA/Lycopen/Lutein 1 tab PO DAILY 06/10/17 11/29/18 [Centrum Silver Tablet] Previous Rx's Medication Instructions Recorded Cyclobenzaprine [Flexeril] 10 mg PO TID PRN #12 tablet 11/29/18 methylPREDNISolone Dose Pack 24 mg PO DAILY #1 tab 11/29/18 [Medrol Dose Pack] Ketorolac [Toradol] 10 mg PO Q6HR #20 tab 02/27/19 Allergies Allergy/AdvReac Type Severity Reaction Status Date / Time codeine Allergy Itching Verified 02/27/19 13:28 erythromycin base Allergy Unknown Verified 02/27/19 13:28 Tetracyclines AdvReac Abdominal Verified 02/27/19 13:28 Pain Review of Systems ROS Statement: Those systems with pertinent positive or pertinent negative responses have been documented in the HPI. ROS Other: All systems not noted in ROS Statement are negative. Past Medical History Past Medical History: COPD, Osteoarthritis (OA) Additional Past Medical History / Comment(s): anemia, vertigo, occasional heartburn History of Any Multi-Drug Resistant Organisms: None Reported Past Surgical History: Appendectomy, Section, Cholecystectomy, Hysterectomy, Orthopedic Surgery Additional Past Surgical History / Comment(s): 2007-lung surg right lung - "scraped inside of lung, had pneumonia really bad" Past Anesthesia/Blood Transfusion Reactions: No Reported Reaction Past Psychological History: No Psychological Hx Reported Smoking Status: Never smoker Past Alcohol Use History: Rare Past Drug Use History: None Reported - Past Family History Father Family Medical History: Cancer, Diabetes Mellitus Additional Family Medical History / Comment(s): lung cancer Mother Additional Family Medical History / Comment(s): emphysema Son(s) Family Medical History: Diabetes Mellitus, Dialysis General Exam - General Exam Comments Initial Comments: Is a well-developed well-nourished awake alert oriented 3 female Limitations: no limitations General appearance: alert, anxious, in distress Head exam: Present: atraumatic, normocephalic, normal inspection Eye exam: Present: normal appearance, PERRL, EOMI. Absent: scleral icterus, conjunctival injection, periorbital swelling ENT exam: Present: normal exam, mucous membranes moist Neck exam: Present: normal inspection, full ROM. Absent: tenderness, meningismus, lymphadenopathy Respiratory exam: Present: normal lung sounds bilaterally. Absent: respiratory distress, wheezes, rales, rhonchi, stridor Cardiovascular Exam: Present: regular rate, normal rhythm, normal heart sounds. Absent: systolic murmur, diastolic murmur, rubs, gallop, clicks GI/Abdominal exam: Present: soft, normal bowel sounds. Absent: distended, tenderness, guarding, rebound, rigid Extremities exam: Present: normal inspection, full ROM, normal capillary refill. Absent: tenderness, pedal edema, joint swelling, calf tenderness Back exam: Present: normal inspection, tenderness, other (Is palpation of the right SI joint area and right superior gluteus. No step-off or crepitation). Absent: full ROM Neurological exam: Present: alert, oriented X3, CN II-XII intact Psychiatric exam: Present: normal affect, normal mood Skin exam: Present: warm, dry, intact, normal color. Absent: rash Course Vital Signs 02/27/19 13:25 Temperature 98.2 F Pulse Rate 59 L Respiratory 18 Rate Blood Pressure 203/74 O2 Sat by Pulse 98 Oximetry Medical Decision Making - Medical Decision Making I did discuss [employer] the patient she is showing improvement after the medication was given. He will be discharged on a prescription of Toradol at her request. She is a follow-up with Dr. Howard as she has planned and return when necessary the patient's blood pressure was noted be elevated this is on the basis of pain and viral depletion clinically. - Radiology Data Radiology results: report reviewed (I did review the imaging and report degenerative changes no acute findings however.), image reviewed Disposition Clinical Impression: Sciatica, Dehydration Disposition: HOME SELF-CARE Condition: Good Instructions (If sedation given, give patient instructions): Acute Low Back Pain (ED), Sciatica (ED), Dehydration (ED) Prescriptions: Ketorolac [Toradol] 10 mg PO Q6HR #20 tab Is patient prescribed a controlled substance at d/c from ED?: No Referrals: Jai Ye MD [Primary Care Provider] - 1-2 days
[2019-02-27] MEDS ORDERED: HYDROmorphone 1 MG/ML 1 ML SYRINGE IVP STA (14:41)
[2019-02-27] MEDS ORDERED: HYDROmorphone 1 MG/ML 1 ML SYRINGE IM STA (14:44)
[2019-02-27] MEDS ORDERED: methylPREDNISolone SOD SUCCI 125 MG/2 ML VIAL IV STA (15:50)
[2019-02-27 15:52] VITALS: BP 193/74; PULSE 68
[2019-02-27] MEDS ORDERED: methylPREDNISolone SOD SUCCI 125 MG/2 ML VIAL IM ONE (15:52)
--- NOTE | 2019-02-27 16:17 | XR ---
EXAMINATION TYPE: XR lumbosacral spine min 4V DATE OF EXAM: 02/27/2019 CLINICAL HISTORY: Back pain TECHNIQUE: Frontal, lateral, and oblique images of the lumbar spine are obtained. COMPARISON: None FINDINGS/IMPRESSION: 5 lumbar type vertebral bodies. Vertebral body alignment is anatomic. Vertebral body heights are christy sly maintained. Degenerative changes are greatest in degree at L2-L3 characterized by moderate disc height loss and v ertebral body osteophyte formation. Lower lumbar spine predominantly facet arthrosis.
== END 2019-02-27 16:12 | disposition home or self-care (01) ==
LOC: EC 13:14
DX: M54.41 Lumbago with sciatica, right side (principal); E86.0 Dehydration; Z88.1 Allergy status to other antibiotic agents; Z88.5 Allergy status to narcotic agent
CPT/HCPCS: 72110; 99283; 96374; 96375; 96372 ×2; J2060; J2930; J1885; J1170

== ENCOUNTER 2019-03-01 11:23 | Emergency (ER) | payer MEDICARE ==
[2019-03-01] MEDS ORDERED: KETOROLAC 60 MG/2 ML VIAL IM STA (12:57)
[2019-03-01] MEDS ORDERED: HYDROmorphone 1 MG/ML 1 ML SYRINGE IM STA (12:57)
--- NOTE | 2019-03-01 13:26 | ED ---
Back Pain HPI - General Chief Complaint: Back Pain/Injury Stated Complaint: Back pain here yesterday Time Seen by Provider: 03/01/19 11:30 Source: patient Limitations: no limitations - History of Present Illness Initial Comments: The patient is a 59-year-old female with past medical history of sciatica who presents to the emergency room with reported right sciatic pain. If that she was diagnosed with sciatica approximately one year ago. She sees Dr. Anita bunch. She has received previous epidural injections. Last MRI was 3 months ago. He does admit to see him on and is supposed be getting an additional injection at this time. Reports that over the past several days her pain has been worse than normal. She denies any saddle anesthesia or bowel or bladder incontinence. No fevers or chills. Denies a history of IV drug use. Denies inability to ambulate. States that her symptoms are not new or worsened, just uncontrolled. She was seen in the emergency room yesterday. They did perform a lumbar x-ray which demonstrated no acute findings. Patient was in 1 Toradol. States that she hasn't been taking the medications. Her pain was so bad that she just came back into the emergency room for valuation. She denies any numbness or tingling into her lower extremity is. No trauma. Denies ripping or tearing sensation to her back. Denies dysuria, hematuria or difficulty voiding. Denies any diarrhea, constant patient, melanotic stools or hematochezia. There are no alleviating, Perceptin or modifying factors - Related Data Home Medications Medication Instructions Recorded Confirmed Multivit-Min/FA/Lycopen/Lutein 1 tab PO DAILY 06/10/17 03/01/19 [Centrum Silver Tablet] Previous Rx's Medication Instructions Recorded Cyclobenzaprine [Flexeril] 10 mg PO TID PRN #12 tablet 11/29/18 methylPREDNISolone Dose Pack 24 mg PO DAILY #1 tab 11/29/18 [Medrol Dose Pack] Ketorolac [Toradol] 10 mg PO Q6HR #20 tab 02/27/19 Hydrocodone/Acetaminophen [[place] 1 tab PO Q6HR PRN #12 tab 03/01/19 5-325] Allergies Allergy/AdvReac Type Severity Reaction Status Date / Time codeine Allergy Itching Verified 03/01/19 11:34 erythromycin base Allergy Unknown Verified 03/01/19 11:34 Tetracyclines AdvReac Abdominal Verified 03/01/19 11:34 Pain Review of Systems ROS Statement: Those systems with pertinent positive or pertinent negative responses have been documented in the HPI. ROS Other: All systems not noted in ROS Statement are negative. Past Medical History Past Medical History: COPD, Osteoarthritis (OA) Additional Past Medical History / Comment(s): anemia, vertigo, occasional heartburn, chronic back pain History of Any Multi-Drug Resistant Organisms: None Reported Past Surgical History: Appendectomy, Section, Cholecystectomy, Hysterectomy, Orthopedic Surgery Additional Past Surgical History / Comment(s): bronchoscopy Past Anesthesia/Blood Transfusion Reactions: No Reported Reaction Past Psychological History: No Psychological Hx Reported Smoking Status: Never smoker Past Alcohol Use History: Rare Past Drug Use History: None Reported - Past Family History Father Family Medical History: Cancer, Diabetes Mellitus Additional Family Medical History / Comment(s): lung cancer Mother Additional Family Medical History / Comment(s): emphysema Son(s) Family Medical History: Diabetes Mellitus, Dialysis General Exam Limitations: no limitations Course Vital Signs 03/01/19 03/01/19 11:30 13:53 Temperature 98.1 F 98.7 F Pulse Rate 72 75 Respiratory 18 16 Rate Blood Pressure 211/105 189/99 O2 Sat by Pulse 97 98 Oximetry Medical Decision Making - Medical Decision Making Upon arrival the patient was placed into room 8. A thorough history and physical exam was performed. Patient does not demonstrate any signs of cauda equina. She is seen ambulating to the restroom without difficulty. She is requesting sending for pain control. The patient was given a shot of Toradol and 1 mg of Dilaudid. I discussed performing imaging the patient however she refuses as this is her chronic pain. Patient is requesting something to take at home. She does see Dr. Howard however refused that she is in a pain contract. I will provide the patient with a short prescription for [place]. Side effect profile discuss. I did inform her that she needs to talk to Dr. Howard before filling the prescription as she could be taken off of her pain contract. The patient understood this. She is reevaluated and continues to have no weakness or numbness in her lower extremities. No issues with bowel or bladder function. The patient is to follow Dr. Howard on for further evaluation. Return to emergency room for any new or worsening symptoms. She was then discharged home ambulatory and condition Disposition Clinical Impression: Sciatica Disposition: HOME SELF-CARE Condition: Stable Instructions (If sedation given, give patient instructions): Acute Low Back Pain (ED) Additional Instructions: Please follow-up with your orthopedic doctor on for your scheduled injection. Return to the emergency room for any new or worsening symptoms Prescriptions: Hydrocodone/Acetaminophen [[place] 5-325] 1 tab PO Q6HR PRN #12 tab PRN Reason: Pain Is patient prescribed a controlled substance at d/c from ED?: Yes When asked, does pt state using other controlled substances?: No If prescribed controlled substance>3 days was MAPS reviewed?: Prescribed <3 Days If opioid is for acute pain is fill amount 7 days or less?: Yes If Rx opioid, was Start Talking consent form obtained?: Yes Referrals: Jai Ye MD [Primary Care Provider] - 1-2 days Triston Howard MD [STAFF PHYSICIAN] - 1-2 days Time of Disposition: 13:26
[2019-03-01 13:55] VITALS: BP 189/99; PULSE 75; RESP 16; TEMP 98.7
== END 2019-03-01 13:59 | disposition home or self-care (01) ==
LOC: EC 11:23
DX: M54.31 Sciatica, right side (principal); Z88.1 Allergy status to other antibiotic agents; Z88.5 Allergy status to narcotic agent
CPT/HCPCS: 99283; 96372 ×2; J1885; J1170

== ENCOUNTER 2019-03-07 08:50 | Emergency (ER) | payer MEDICARE ==
[2019-03-07 09:00] VITALS: TEMP 97.9
[2019-03-07] MEDS ORDERED: HYDROmorphone 1 MG/ML 1 ML SYRINGE IM STA (09:23)
--- NOTE | 2019-03-07 09:29 | ED ---
Back Pain HPI - General Chief Complaint: Back Pain/Injury Stated Complaint: back pain Time Seen by Provider: 03/07/19 09:02 Source: patient Limitations: physical limitation - History of Present Illness Initial Comments: Patient is a 63-year-old female presenting to the emergency Department with complaints of right sciatic pain that has been going on for the last week. Patient has been diagnosed with sciatica approximately one year ago and sees Dr. Howard for this. Patient received an epidural injection approximately 4 days ago which she states did not help. Patient had one approximately 3 months ago that did help. Patient states the Tangent she has at home also does not help. She has been doing heat and ice without relief. Patient states she does have an appointment with Dr. Black in a few weeks. Patient states they told her she can come into the office today however she was in too much pain and decided to come to the ER first. Patient states that her symptoms are not new or worsened, just uncontrolled. Patient was seen in the emergency room twice in the last week for the same thing. X-rays were done and shows no acute findings. Patient denies fever, chills, numbness and tingling into her lower extremities, dysuria, difficulty voiding, diarrhea. Patient has no other complaints at this time.upon arrival to the ER, vital signs are stable. - Related Data Home Medications Medication Instructions Recorded Confirmed Multivit-Min/FA/Lycopen/Lutein 1 tab PO DAILY 06/10/17 03/01/19 [Centrum Silver Tablet] Previous Rx's Medication Instructions Recorded Cyclobenzaprine [Flexeril] 10 mg PO TID PRN #12 tablet 11/29/18 methylPREDNISolone Dose Pack 24 mg PO DAILY #1 tab 11/29/18 [Medrol Dose Pack] Ketorolac [Toradol] 10 mg PO Q6HR #20 tab 02/27/19 Hydrocodone/Acetaminophen [[place] 1 tab PO Q6HR PRN #12 tab 03/01/19 5-325] Lidocaine 5% Patch [Lidoderm 5% 1 patch TOPICAL DAILY 5 Days #5 03/07/19 Patch] patch Methocarbamol [Robaxin] 750 mg PO TID #15 tab 03/07/19 Allergies Allergy/AdvReac Type Severity Reaction Status Date / Time codeine Allergy Itching Verified 03/01/19 11:34 erythromycin base Allergy Unknown Verified 03/01/19 11:34 Tetracyclines AdvReac Abdominal Verified 03/01/19 11:34 Pain Review of Systems ROS Statement: Those systems with pertinent positive or pertinent negative responses have been documented in the HPI. ROS Other: All systems not noted in ROS Statement are negative. Past Medical History Past Medical History: COPD, Osteoarthritis (OA) Additional Past Medical History / Comment(s): anemia, vertigo, occasional heartburn, chronic back pain History of Any Multi-Drug Resistant Organisms: None Reported Past Surgical History: Appendectomy, Section, Cholecystectomy, Hysterectomy, Orthopedic Surgery Additional Past Surgical History / Comment(s): bronchoscopy Past Anesthesia/Blood Transfusion Reactions: No Reported Reaction Past Psychological History: No Psychological Hx Reported Smoking Status: Never smoker Past Alcohol Use History: Rare Past Drug Use History: None Reported - Past Family History Father Family Medical History: Cancer, Diabetes Mellitus Additional Family Medical History / Comment(s): lung cancer Mother Additional Family Medical History / Comment(s): emphysema Son(s) Family Medical History: Diabetes Mellitus, Dialysis General Exam - General Exam Comments Initial Comments: GENERAL: Well-appearing, well-nourished and in no acute distress, although appears uncomfortable. HEAD: Atraumatic, normocephalic. EYES: Pupils equal round and reactive to light, extraocular movements intact, sclera anicteric, conjunctiva are normal. ENT: Moist mucous membranes. NECK: Normal range of motion, supple without lymphadenopathy or JVD. LUNGS: Breath sounds clear to auscultation bilaterally and equal. No wheezes rales or rhonchi. HEART: Regular rate and rhythm without murmurs, rubs or gallops. ABDOMEN: Soft, nontender, normoactive bowel sounds. No guarding, no rebound. No masses appreciated. EXTREMITIES: pain with palpation of the right gluteal, sciatic area. Sensation is equal in bilateral lower extremities. Patient has 5 out of 5 strength. No pitting or edema. No clubbing or cyanosis. NEUROLOGICAL: Normal speech, normal gait. PSYCH: Normal mood, normal affect. SKIN: Warm, Dry, normal turgor, no rashes or lesions noted. Limitations: physical limitation Course Vital Signs 03/07/19 08:57 Temperature 97.9 F Pulse Rate 67 Respiratory 19 Rate Blood Pressure 166/83 O2 Sat by Pulse 99 Oximetry Medical Decision Making - Medical Decision Making patient is 63-year-old female presenting with right sciatica symptoms. Patient sees Dr. Howard for this. This is the patient's third visit in 1 week for same complaint. Patient states the Tangent is not helping her symptoms. Exam today is consistent with right sciatica. Patient will be given Dilaudid for pain relief and will follow-up with Dr. Black today in the office. patient also given prescriptions for lidocaine patch as well as a different muscle relaxer per her request. Patient was instructed not to take Flexeril and Robaxin at the same time. Patient is agreement with this plan of care. There are no red flag symptoms.return parameters were discussed with the patient she verbalized understanding. Patient is stable for discharge. Disposition Clinical Impression: Sciatica Disposition: HOME SELF-CARE Condition: Stable Instructions (If sedation given, give patient instructions): Acute Low Back Pain (ED) Additional Instructions: Please return to the Emergency Department if symptoms worsen or any other concerns. Follow-up with Dr. Black as discussed. Prescriptions: Lidocaine 5% Patch [Lidoderm 5% Patch] 1 patch TOPICAL DAILY 5 Days #5 patch Methocarbamol [Robaxin] 750 mg PO TID #15 tab Is patient prescribed a controlled substance at d/c from ED?: No Referrals: Jai Ye MD [Primary Care Provider] - 1-2 days Dion Guadarrama DO [Doctor of Osteopathic Medicine] - 1-2 days
[2019-03-07 10:04] VITALS: BP 132/76; PULSE 76; RESP 16
== END 2019-03-07 10:02 | disposition home or self-care (01) ==
LOC: EC 08:50
DX: M54.31 Sciatica, right side (principal); Z88.5 Allergy status to narcotic agent; Z88.1 Allergy status to other antibiotic agents
CPT/HCPCS: 99283; 96372; J1170

== ENCOUNTER → 2019-03-17 | Outpatient (CLI) | payer MEDICARE ==
[2019-03-17 14:32] LABS: Basophils % (A) 0 %; Eosinophils # (A) 0.2 k/uL (0-0.7); Eosinophils % (A) 3 %; HCT 37.7 % (34.0-46.0); HGB 12.3 gm/dL (11.4-16.0); Lymphocytes # (A) 1.3 k/uL (1.0-4.8); Lymphocytes % (A) 21 %; MCH 29.7 pg (25.0-35.0); MCHC 32.7 g/dL (31.0-37.0); MCV 90.8 fL (80.0-100.0); Mean Platelet Volume 8.8; Monocytes # (A) 0.3 k/uL (0-1.0); Monocytes % (A) 4 %; Neutrophils # (A) 4.5 k/uL (1.3-7.7); Neutrophils % (A) 70 %; Platelet Count 221 k/uL (150-450); RBC 4.15 m/uL (3.80-5.40); RDW 12.7 % (11.5-15.5); WBC 6.4 k/uL (3.8-10.6)
[2019-03-17 14:34] LABS: Appearance,Urine Clear (Clear); Bilirubin,Urine Negative (Negative); Blood,Urine Negative (Negative); Color,Urine Yellow; Glucose,Urine (UA) Negative (Negative); Ketones,Urine Negative (Negative); Leukocyte Esterase,Urine Moderate (Negative); Mucus,Urine Rare /hpf; Nitrite,Urine Negative (Negative); Protein,Urine Trace (Negative); RBC,Urine 1 /hpf (0-5); Specific Gravity,Urine 1.029 (1.001-1.035); Squamous Epithelial Cell,Urine 4 /hpf (0-4); WBC,Urine 1 /hpf (0-5)
[2019-03-17 14:37] LABS: Partial Thromboplastin Time 23.2 sec (22.0-30.0); Prothrombin Time 10.6 sec (9.0-12.0)
--- NOTE | 2019-03-17 14:37 | XR ---
EXAMINATION TYPE: XR chest 2V DATE OF EXAM: 03/17/2019 COMPARISON: 04/18/2017 TECHNIQUE: PA and lateral views submitted. HISTORY: Presurgical FINDINGS: The lungs are clear and there is no pneumothorax, pleural effusion, or focal pneumonia. No overt fa ilure. Hypertrophic and degenerative change of the spine noted. IMPRESSION: 1. No acute process.
[2019-03-17 14:39] LABS: African American GFR (CKD) >90 (>60 ml/min/1.73 sqM); Anion Gap 7 mmol/L; Blood Urea Nitrogen 15 mg/dL (7-17); Calcium 9.3 mg/dL (8.4-10.2); Carbon Dioxide 25 mmol/L (22-30); Chloride 109 mmol/L (98-107); Glucose 123 mg/dL (74-99); Non-African American GFR(CKD) >90 (>60 ml/min/1.73 sqM); Potassium 4.4 mmol/L (3.5-5.1); Sodium 141 mmol/L (137-145)
== END | disposition home or self-care (01) ==
LOC: LABPAT 13:50
PROVIDERS: ATTEND Orthopaedic Surgery Orthopaedic Surgery of the Spine
DX: Z01.818 Encounter for other preprocedural examination (principal); Z01.812 Encounter for preprocedural laboratory examination; M54.16 Radiculopathy, lumbar region; M47.817 Spondylosis without myelopathy or radiculopathy, lumbosacral region; M51.24 Other intervertebral disc displacement, thoracic region
CPT/HCPCS: 36415; 71046; 80048; 81001; 85025; 85610; 85730; 86850; 86900; 86901; 93005

== ENCOUNTER 2019-03-24 11:20 | Emergency (ER) | payer MEDICARE ==
[2019-03-24] MEDS ORDERED: SODIUM CHLORIDE 0.9% 1,000 ML IV STA (11:43)
[2019-03-24] MEDS ORDERED: methylPREDNISolone SOD SUCCI 125 MG/2 ML VIAL IV STA (11:43)
[2019-03-24] MEDS ORDERED: IPRATROPIUM-ALBUTEROL 3 ML NEB INHALATION STA ×2 (11:43→13:44)
--- NOTE | 2019-03-24 11:54 | ED ---
SOB HPI - General Chief Complaint: Shortness of Breath Stated Complaint: Congestion Time Seen by Provider: 03/24/19 11:35 Source: patient, RN notes reviewed Mode of arrival: ambulatory Limitations: no limitations - History of Present Illness Initial Comments: This is a 63-year-old female with a history of COPD and right pneumothorax, sciatica also was currently being worked up for chest pain and possibly may also have a UTI which was discovered on her workup for her upcoming sciatica surgery who presents today with complaints of shortness of breath with anterior chest pain. She states she's had a cough mostly nonproductive but she did have smell from this morning she also states she had severe night sweats last night. She has exertional dyspnea the pain is in the middle of her chest somewhat sharp she's unable to quantify or qualify it any further. He does get worse with deep breathing and certain movements she has used her inhaler at home without any success he is also taking Mucinex. Patient denies any other modifying factors this time. MD Complaint: shortness of breath, cough, chest pain - Related Data Home Medications Medication Instructions Recorded Confirmed Multivit-Min/FA/Lycopen/Lutein 1 tab PO DAILY 06/10/17 03/18/19 [Centrum Silver Tablet] HYDROcodone/APAP 7.5-325MG [[place] 1 tab PO Q8HR PRN 03/18/19 03/18/19 7.5-325] Umeclidinium Brm/Vilanterol Tr 1 puff INHALATION DAILY PRN 03/18/19 03/18/19 [Anoro Ellipta 62.5-25 Mcg INH] amLODIPine [Norvasc] 5 mg PO DAILY 03/18/19 03/18/19 Previous Rx's Medication Instructions Recorded Methocarbamol [Robaxin] 750 mg PO TID #15 tab 03/07/19 Albuterol Inhaler [Ventolin Hfa 2 puff INHALATION Q6HR PRN #1 03/24/19 Inhaler] inhaler predniSONE 20 mg PO BID #10 tab 03/24/19 Allergies Allergy/AdvReac Type Severity Reaction Status Date / Time codeine Allergy Itching Verified 03/18/19 15:02 erythromycin base Allergy STOMACH Verified 03/18/19 15:02 PAIN Tetracyclines AdvReac Abdominal Verified 03/01/19 11:34 Pain Review of Systems ROS Statement: Those systems with pertinent positive or pertinent negative responses have been documented in the HPI. ROS Other: All systems not noted in ROS Statement are negative. Past Medical History Past Medical History: COPD, Osteoarthritis (OA) Additional Past Medical History / Comment(s): anemia, vertigo, occasional heartburn, chronic back pain History of Any Multi-Drug Resistant Organisms: None Reported Past Surgical History: Appendectomy, Section, Cholecystectomy, Hyst erectomy, Orthopedic Surgery Additional Past Surgical History / Comment(s): bronchoscopy Past Anesthesia/Blood Transfusion Reactions: No Reported Reaction Past Psychological History: No Psychological Hx Reported Smoking Status: Never smoker Past Alcohol Use History: Rare Past Drug Use History: None Reported - Past Family History Father Family Medical History: Cancer, Diabetes Mellitus Additional Family Medical History / Comment(s): lung cancer and bone cancer Mother Additional Family Medical History / Comment(s): emphysema Son(s) Family Medical History: Diabetes Mellitus, Dialysis Additional Family Medical History / Comment(s): pacemaker, 2017 General Exam - General Exam Comments Initial Comments: Pezzer well-developed well-nourished awake alert oriented 3 female Limitations: no limitations General appearance: alert, anxious Head exam: Present: atraumatic, normocephalic, normal inspection Eye exam: Present: normal appearance, PERRL, EOMI. Absent: scleral icterus, conjunctival injection, periorbital swelling ENT exam: Present: mucous membranes dry Neck exam: Present: normal inspection, full ROM, other (No stridor JVD or bruits). Absent: tenderness, meningismus, lymphadenopathy Respiratory exam: Present: normal lung sounds bilaterally, wheezes, chest wall tenderness (Reproducible tenderness palpation along the costal sternal and costochondral margin on the left with no step-off or crepitation), decreased breath sounds. Absent: respiratory distress, rales, rhonchi, stridor Cardiovascular Exam: Present: regular rate, normal rhythm, normal heart sounds. Absent: systolic murmur, diastolic murmur, rubs, gallop, clicks GI/Abdominal exam: Present: soft, normal bowel sounds. Absent: distended, tenderness, guarding, rebound, rigid Extremities exam: Present: normal inspection, full ROM, normal capillary refill. Absent: tenderness, pedal edema, joint swelling, calf tenderness Back exam: Present: normal inspection Neurological exam: Present: alert, oriented X3, CN II-XII intact Psychiatric exam: Present: normal affect, normal mood Skin exam: Present: warm, dry, intact, normal color. Absent: rash Course Vital Signs 03/24/19 03/24/19 03/24/19 11:30 12:14 12:16 Temperature 98.1 F Pulse Rate 95 80 Respiratory 22 19 Rate Blood Pressure 145/84 O2 Sat by Pulse 97 Oximetry 03/24/19 03/24/19 03/24/19 12:24 12:45 13:00 Temperature 98.0 F Pulse Rate 84 89 91 Respiratory 20 18 Rate Blood Pressure 170/80 186/93 O2 Sat by Pulse 98 95 Oximetry - Reevaluation(s) Reevaluation #1: 03/24/19 13:55 Patient is feeling improved though she states her sciatic pain is acting up. She did take her blood pressure medication today she states is riding somewhat high but this is likely secondary to a combination of the presenting symptoms with sciatica. Medical Decision Making - Medical Decision Making Patient will receive a repeat DuoNeb treatment and be discharged on appropriate medication she is keep follow-ups as planned UA is not consistent with UTI at this time. - Lab Data Result diagrams: 03/24/19 12:05 03/24/19 12:05 Lab Results 03/24/19 03/24/19 03/24/19 Range/Units 12:05 12:05 12:05 WBC 4.9 (3.8-10.6) k/uL RBC 4.58 (3.80-5.40) m/uL Hgb 13.3 (11.4-16.0) gm/dL Hct 40.7 (34.0-46.0) % MCV 88.8 (80.0-100.0) fL MCH 29.1 (25.0-35.0) pg MCHC 32.8 (31.0-37.0) g/dL RDW 12.9 (11.5-15.5) % Plt Count 264 (150-450) k/uL Neutrophils % 68 % Lymphocytes % 22 % Monocytes % 5 % Eosinophils % 3 % Basophils % 0 % Neutrophils # 3.3 (1.3-7.7) k/uL Lymphocytes # 1.1 (1.0-4.8) k/uL Monocytes # 0.2 (0-1.0) k/uL Eosinophils # 0.2 (0-0.7) k/uL Basophils # 0.0 (0-0.2) k/uL PT (9.0-12.0) sec INR (<1.2) APTT (22.0-30.0) sec Sodium 140 (137-145) mmol/L Potassium 4.1 (3.5-5.1) mmol/L Chloride 104 (98-107) mmol/L Carbon Dioxide 29 (22-30) mmol/L Anion Gap 7 mmol/L BUN 11 (7-17) mg/dL Creatinine 0.73 (0.52-1.04) mg/dL Est GFR (CKD-EPI)AfAm >90 (>60 ml/min/1.73 sqM) Est GFR (CKD-EPI)NonAf 88 (>60 ml/min/1.73 sqM) Glucose 147 H (74-99) mg/dL Calcium 9.8 (8.4-10.2) mg/dL Magnesium 1.9 (1.6-2.3) mg/dL Total Bilirubin 1.2 (0.2-1.3) mg/dL AST 32 (14-36) U/L ALT 27 (4-34) U/L Alkaline Phosphatase 44 (38-126) U/L Creatine Kinase 37 (30-135) U/L Troponin I (0.000-0.034) ng/mL NT-Pro-B Natriuret Pep 127 pg/mL Total Protein 7.3 (6.3-8.2) g/dL Albumin 4.3 (3.5-5.0) g/dL Urine Color Urine Appearance (Clear) Urine pH (5.0-8.0) Ur Specific [place] (1.001-1.035) Urine Protein (Negative) Urine Glucose (UA) (Negative) Urine Ketones (Negative) Urine Blood (Negative) Urine Nitrite (Negative) Urine Bilirubin (Negative) Urine Urobilinogen (<2.0) mg/dL Ur Leukocyte Esterase (Negative) Urine RBC (0-5) /hpf Urine WBC (0-5) /hpf Ur Squamous Epith Cells (0-4) /hpf Urine Mucus (None) /hpf 03/24/19 03/24/19 03/24/19 Range/Units 12:05 12:05 12:30 WBC (3.8-10.6) k/uL RBC (3.80-5.40) m/uL Hgb (11.4-16.0) gm/dL Hct (34.0-46.0) % MCV (80.0-100.0) fL MCH (25.0-35.0) pg MCHC (31.0-37.0) g/dL RDW (11.5-15.5) % Plt Count (150-450) k/uL Neutrophils % % Lymphocytes % % Monocytes % % Eosinophils % % Basophils % % Neutrophils # (1.3-7.7) k/uL Lymphocytes # (1.0-4.8) k/uL Monocytes # (0-1.0) k/uL Eosinophils # (0-0.7) k/uL Basophils # (0-0.2) k/uL PT 10.6 (9.0-12.0) sec INR 1.0 (<1.2) APTT 23.6 (22.0-30.0) sec Sodium (137-145) mmol/L Potassium (3.5-5.1) mmol/L Chloride (98-107) mmol/L Carbon Dioxide (22-30) mmol/L Anion Gap mmol/L BUN (7-17) mg/dL Creatinine (0.52-1.04) mg/dL Est GFR (CKD-EPI)AfAm (>60 ml/min/1.73 sqM) Est GFR (CKD-EPI)NonAf (>60 ml/min/1.73 sqM) Glucose (74-99) mg/dL Calcium (8.4-10.2) mg/dL Magnesium (1.6-2.3) mg/dL Total Bilirubin (0.2-1.3) mg/dL AST (14-36) U/L ALT (4-34) U/L Alkaline Phosphatase (38-126) U/L Creatine Kinase (30-135) U/L Troponin I <0.012 (0.000-0.034) ng/mL NT-Pro-B Natriuret Pep pg/mL Total Protein (6.3-8.2) g/dL Albumin (3.5-5.0) g/dL Urine Color Light Yellow Urine Appearance Clear (Clear) Urine pH 6.0 (5.0-8.0) Ur Specific [place] 1.009 (1.001-1.035) Urine Protein Negative (Negative) Urine Glucose (UA) Negative (Negative) Urine Ketones Negative (Negative) Urine Blood Negative (Negative) Urine Nitrite Negative (Negative) Urine Bilirubin Negative (Negative) Urine Urobilinogen <2.0 (<2.0) mg/dL Ur Leukocyte Esterase Small H (Negative) Urine RBC <1 (0-5) /hpf Urine WBC 1 (0-5) /hpf Ur Squamous Epith Cells 4 (0-4) /hpf Urine Mucus Rare H (None) /hpf - EKG Data -: EKG Interpreted by Me (Sinus rhythm a 70. Interval 154 QRS 84 QT/QTC 404/436 moderate voltage cri) EKG Comments: EKG shows normal sinus rhythm of 70. Interval 154 QRS 84 QT since QTC 44/436 moderate voltage criteria for LVH nonspecific T-wave configuration - Radiology Data Radiology results: report reviewed (I did review the imaging and report no acute findings), image reviewed Disposition Clinical Impression: Acute exacerbation of chronic obstructive pulmonary disease, Sciatica Disposition: HOME SELF-CARE Condition: Good Instructions (If sedation given, give patient instructions): COPD (Chronic Obstructive Pulmonary Disease) (ED) Additional Instructions: Medication prescriptions sent to your preferred [facility] pharmacy Prescriptions: predniSONE 20 mg PO BID #10 tab Albuterol Inhaler [Ventolin Hfa Inhaler] 2 puff INHALATION Q6HR PRN #1 inhaler PRN Reason: Dyspnea Is patient prescribed a controlled substance at d/c from ED?: No Referrals: Jai Ye MD [Primary Care Provider] - 1-2 days
--- NOTE | 2019-03-24 12:14 | XR ---
EXAMINATION TYPE: XR chest 2V DATE OF EXAM: 03/24/2019 COMPARISON: 03/17/2019 TECHNIQUE: PA and lateral views submitted. HISTORY: Difficulty breathing FINDINGS: The lungs are clear and there is no pneumothorax, pleural effusion, or focal pneumonia. Hypertrophi c and degenerative change of the spine. No overt failure. IMPRESSION: 1. No acute process.
[2019-03-24 12:20] LABS: Basophils % (A) 0 %; Eosinophils # (A) 0.2 k/uL (0-0.7); Eosinophils % (A) 3 %; HCT 40.7 % (34.0-46.0); HGB 13.3 gm/dL (11.4-16.0); Lymphocytes # (A) 1.1 k/uL (1.0-4.8); Lymphocytes % (A) 22 %; MCH 29.1 pg (25.0-35.0); MCHC 32.8 g/dL (31.0-37.0); MCV 88.8 fL (80.0-100.0); Mean Platelet Volume 8.5; Monocytes # (A) 0.2 k/uL (0-1.0); Monocytes % (A) 5 %; Neutrophils # (A) 3.3 k/uL (1.3-7.7); Neutrophils % (A) 68 %; Platelet Count 264 k/uL (150-450); RBC 4.58 m/uL (3.80-5.40); RDW 12.9 % (11.5-15.5); WBC 4.9 k/uL (3.8-10.6)
[2019-03-24 12:32] LABS: Partial Thromboplastin Time 23.6 sec (22.0-30.0); Prothrombin Time 10.6 sec (9.0-12.0)
[2019-03-24 12:46] LABS: ALT 27 U/L (4-34); AST 32 U/L (14-36); African American GFR (CKD) >90 (>60 ml/min/1.73 sqM); Albumin 4.3 g/dL (3.5-5.0); Alkaline Phosphatase 44 U/L (38-126); Anion Gap 7 mmol/L; Blood Urea Nitrogen 11 mg/dL (7-17); Calcium 9.8 mg/dL (8.4-10.2); Carbon Dioxide 29 mmol/L (22-30); Chloride 104 mmol/L (98-107); Creatine Kinase 37 U/L (30-135); Glucose 147 mg/dL (74-99); Magnesium 1.9 mg/dL (1.6-2.3); Non-African American GFR(CKD) 88 (>60 ml/min/1.73 sqM); Potassium 4.1 mmol/L (3.5-5.1); Sodium 140 mmol/L (137-145); Total Bilirubin 1.2 mg/dL (0.2-1.3); Total Protein 7.3 g/dL (6.3-8.2)
[2019-03-24 12:57] LABS: Appearance,Urine Clear (Clear); Bilirubin,Urine Negative (Negative); Blood,Urine Negative (Negative); Color,Urine Light Yellow; Glucose,Urine (UA) Negative (Negative); Ketones,Urine Negative (Negative); Leukocyte Esterase,Urine Small (Negative); Mucus,Urine Rare /hpf; Nitrite,Urine Negative (Negative); Protein,Urine Negative (Negative); RBC,Urine <1 /hpf (0-5); Specific Gravity,Urine 1.009 (1.001-1.035); Squamous Epithelial Cell,Urine 4 /hpf (0-4); Urobilinogen,Urine <2.0 mg/dL (<2.0); WBC,Urine 1 /hpf (0-5)
[2019-03-24] MEDS ORDERED: KETOROLAC 30 MG/ML 1 ML VIAL IVP STA (13:43)
[2019-03-24 14:40] VITALS: BP 160/95; PULSE 89; RESP 19; TEMP 98.7
== END 2019-03-24 14:40 | disposition home or self-care (01) ==
LOC: EC 11:20
DX: J44.1 Chronic obstructive pulmonary disease with (acute) exacerbation (principal); M54.30 Sciatica, unspecified side; M19.90 Unspecified osteoarthritis, unspecified site; Z88.1 Allergy status to other antibiotic agents; Z88.5 Allergy status to narcotic agent; Z79.891 Long term (current) use of opiate analgesic; Z79.899 Other long term (current) drug therapy; Z87.09 Personal history of other diseases of the respiratory system; Z80.1 Family history of malignant neoplasm of trachea, bronchus and lung; Z82.5 Family history of asthma and other chronic lower respiratory diseases
CPT/HCPCS: 99285; 96374; 96375; 96361 ×2; 36415; 94640 ×2; 93005; 83880; 80053; 82550; 83735; 84484; 85025; 85610; 85730; 81001; 71046; J2930; J1885

== ENCOUNTER → 2019-03-30 | Outpatient (CLI) | payer MEDICARE ==
[~2019-03-30] MED LIST changes: -DEXAMETHASONE SOD PHOSPHATE 10 MG/ML 1 ML VIAL IV ONE; -FAMOTIDINE 20 MG/2 ML VIAL IV PRN; -HEPARIN SODIUM,PORCINE 5,000 UNIT/ML 1 ML VIAL SQ ONE; -LIDOCAINE 1% 20 ML VIAL (10MG/ML) FOR IV START INTRADERMA PRN; -MIDAZOLAM 2 MG/2 ML VIAL IV PRN; -ONDANSETRON 4 MG/2 ML VIAL IVP ONE; +REGADENOSON 0.4 MG/5 ML SYRINGE IV ONE; -ceFAZolin IN SWFI 2 GM/20 ML SYRINGE IVP ONE; -fentaNYL (PF) 50 MCG/ML 2 ML AMP IV PRN
--- NOTE | 2019-03-30 11:13 | NM ---
EXAMINATION TYPE: NM stress lexiscan cardiolite DATE OF EXAM: 03/30/2019 COMPARISON: NONE HISTORY: Abnormal EKG TECHNIQUE: After the intravenous administration of 9.72 mCi Tc 99m Sestamibi - Cardiolite resting SP ECT images acquired 55 minutes post injection. The patient received 0.4mg Lexiscan, 25.7 mCi Tc 99m Sestamibi - Stress images obtained [address] injection FINDINGS: Review of stress and rest SPECT images demonstrates no distinct perfusion abnormality. Gated analysi s shows normal wall motion with an estimated left ventricular ejection fraction of 60 %. IMPRESSION: No scintigraphic evidence for reversible ischemia.
--- NOTE | 2019-03-30 13:25 | EST ---
EXERCISE STRESS DATE OF SERVICE: 03/30/2019 AGE: 63 SEX: Female HT: 4'11" WT: 150 pounds PROTOCOL: Lexiscan Cardiolite STAGE: DURATION OF EXERCISE: HEART RATE REST: 69 BLOOD PRESSURE REST: 154/78 MAXIMUM HEART RATE ACHIEVED: 92 MAXIMUM BLOOD PRESSURE: 156/72 85% MPHR: 133 100% MPHR: 156 METS: INDICATIONS: Pre-op abnormal EKG. CLINICAL INFORMATION: Lexiscan nuclear study was performed. Peak heart rate of 92 was achieved. Maximum blood pressure of 156/72 mmHg was noted. Resting EKG shows normal sinus rhythm with nonspecific T-wave changes are noted in the lead V1 and V2. No ST-segment depression suggestive of ischemia was noted. The results of the nuclear study will follow. TIESHA / MARY: [id number] /
== END | disposition home or self-care (01) ==
LOC: RADNMMAIN 07:48
PROVIDERS: ATTEND Internal Medicine
DX: R94.31 Abnormal electrocardiogram [ECG] [EKG] (principal)
CPT/HCPCS: 93017; 78452; A9500; J2785

== ENCOUNTER 2019-04-13 12:03 | Day surgery (SDC) | payer MEDICARE ==
[2019-04-12 12:23] VITALS: BMI 30.2
[~2019-04-13 12:03] MED LIST changes: +BACITRACIN 50,000 UNIT, POLYMYXIN B 500,000 UNIT in SODIUM CHLORIDE 0.9% IRRIGATIO 1,00... IRRIGATION ONE; +DEXAMETHASONE SOD PHOSPHATE 10 MG/ML 1 ML VIAL IV ONE; +LIDOCAINE 1% 20 ML VIAL (10MG/ML) FOR IV START INTRADERMA PRN; +ONDANSETRON 4 MG/2 ML VIAL IVP ONE; +Pre Op ABX Message 1 EACH MISC MISCELLANE ONE; -REGADENOSON 0.4 MG/5 ML SYRINGE IV ONE
[2019-04-13] MEDS: LACTATED RINGERS 1,000 ML IV SCH ×2 (12:48→17:31)
[2019-04-13] MEDS ORDERED: PROPOFOL 10 MG/ML 20 ML VIAL IV ONE (13:56)
[2019-04-13] MEDS ORDERED: LIDOCAINE 1% INJ 10MG/ML (20 ML MDV) ONE (13:56)
[2019-04-13] MEDS ORDERED: MIDAZOLAM 2 MG/2 ML VIAL ONE (13:56)
[2019-04-13] MEDS ORDERED: fentaNYL (PF) 50 MCG/ML 2 ML AMP ONE (13:56)
[2019-04-13] MEDS ORDERED: SUCCINYLCHOLINE CHLORIDE 100 MG/5 ML SYR IV ONE (13:56)
[2019-04-13] MEDS ORDERED: HYDROmorphone (PF) 1 MG/ML ONE (13:56)
[2019-04-13] MEDS ORDERED: LIDOCAINE 2%-EPI 1:100,000 20 ML VIAL SQ ONE (14:41)
[2019-04-13] MEDS ORDERED: BUPIVACAINE (PF) 0.25% 30 ML VIAL SQ ONE (14:41)
[2019-04-13] MEDS ORDERED: THROMBIN (BOVINE) 5,000 UNIT VIAL TOPICAL ONE (14:43)
[2019-04-13] MEDS ORDERED: GELATIN SPONGE,ABSORB (SMALL) 1 EACH SPONGE TOPICAL ONE (14:43)
[2019-04-13] MEDS ORDERED: methylPREDNISolone ACETATE 80 MG/ML 1 ML VIAL MISCELLANE ONE (14:57)
--- NOTE | 2019-04-13 15:24 | FL ---
EXAMINATION TYPE: FL guidance operating room, XR lumbar spine 1V DATE OF EXAM: 04/13/2019 CLINICAL HISTORY: Low back pain. TECHNIQUE: Fluoroscopy. Intraoperative single view lumbar spine. COMPARISON: Lumbar spine x-ray February 27, 2019.. FINDINGS: Fluoroscopic guidance was provided during lumbar spine surgical procedure performed by Dr. Guadarrama. A total of 4 seconds of fluoroscopic time was utilized during the procedure single spot fluo roscopic intraoperative image is acquired. Single image acquired performed for attempted localization but there is significant underpenetration along with overlying structures to help localize on image saved to PACS. IMPRESSION: As Above.
[2019-04-13] MEDS ORDERED: MAGNESIUM HYDROXIDE 2,400 MG/10 ML CUP PO PRN (15:41)
[2019-04-13] MEDS ORDERED: ONDANSETRON 4 MG/2 ML VIAL IVP PRN (15:41)
[2019-04-13] MEDS ORDERED: IBUPROFEN 600 MG TAB PO PRN (15:41)
[2019-04-13] MEDS ORDERED: HYDROmorphone 1 MG/ML 1 ML SYRINGE IVP PRN (15:41)
[2019-04-13] MEDS ORDERED: BENZOCAINE/MENTHOL LOZENG 1 EACH LOZENGE MUCOUS MEM PRN (15:41)
[2019-04-13] MEDS ORDERED: HYDROcodone/APAP 5-325MG 1 EACH TAB PO PRN ×2 (15:41)
[2019-04-13] MEDS ORDERED: HYDROmorphone 0.5 MG/0.5 ML SYRINGE IVP PRN (15:41)
[2019-04-13] MEDS ORDERED: ALBUTEROL INHALER 60 PUFF/8 GM INHALER INHALATION PRN (15:43)
[2019-04-13] MEDS ORDERED: ALBUTEROL NEBULIZED 2.5 MG/3 ML INHALATION PRN (15:43)
[2019-04-13] MEDS ORDERED: HYDROcodone/APAP 7.5-325MG 1 EACH TAB PO PRN (15:43)
--- NOTE | 2019-04-13 15:50 | P.OP ---
Date of Procedure: 04/13/19 Preoperative Diagnosis: Herniated nucleus pulposis L5-S1, spinal stenosis L5-S1, degenerative disc disease, right lower extremity radiculopathy, low back pain Postoperative Diagnosis: Same Anesthesia: GETA Pathology: none sent Condition: stable Disposition: PACU Description of Procedure: BRIEF OPERATIVE NOTE Preoperative Diagnosis:Herniated nucleus pulposis L5-S1, spinal stenosis L5-S1, degenerative disc disease, right lower extremity radiculopathy, low back pain Postoperative Diagnosis:Herniated nucleus pulposis L5-S1, spinal stenosis L5-S1, degenerative disc disease, right lower extremity radiculopathy, low back pain Procedure: Laminectomy and decompression L5-S1 Discectomy for decompression L5-S1 Surgeon: Dr. Guadarrama Diesel Service Technician: Luigi Duarte is present throughout the entire the case persistence during positioning, dissection, exposure, visualization, and all crucial elements of the case as well as closure. Anesthesia: General anesthesia Estimated blood loss: Approximately 40 mL Complications: None apparent Components implanted: None Disposition: To recovery room in good stable condition. OPERATIVE INDICATIONS The patient has been having issues in their lower back and lower extremities. She has been having some issues over the past 10 years and head injury long-ago. She's been having some worsening over the past several months and was found have disc herniation was significant foraminal stenosis and degenerative disc disease at L5-S1 which quite well with her low back and lower extremity symptoms. The patient had tried extensive interventional pain management and conservative care however did not have any lasting relief despite aggressive conservative treatment. The patient has been through conservative treatment. We discussed various treatment options including surgery, and the patient wishes to proceed with surgery We discussed the risk, patient's alternatives and benefits of surgery including but not limited to, risk of bleeding risk of infection, risk of need for further surgery, risk of decreased, loss of motion, loss of function, nerve damage, paralysis, heart attack, blindness and . OPERATIVE SUMMARY After discussing all the risks, patient alternatives and benefits at length, the patient elected to proceed with surgical intervention, signed informed consent, and presented for their procedure. The patient was seen and examined in the preoperative holding area and the surgical site was marked. The patient was given antibiotics and brought to the operating room. The patient was sedated and intubated by anesthesia in standard fashion. The patient was positioned on to the operating room table in a prone position on the appropriate frame which was well-padded and well molded. We were careful to pad any bony prominences and pressure points. We were careful to maintain the patient's cervical spine and good neutral alignment and position throughout. The patient was prepped and draped in a normal standard fashion. An appropriate timeout and keystone protocol performed. We were able to proceed with the surgery. Fluoroscopy was utilized to establish the appropriate level of L5-S1. The local wound area was infiltrated with local anesthetic. An incision was made at the midline longitudinally over the appropriate levels of L5-S1. Dissection was taken down subcutaneously to the level of the fascia which was split midline. Dissection was taken over the lamina. Intraoperative fluoroscopy was taken which showed a marker at the appropriate level of L5-S1. With the appropriate level positively confirmed, we were able to proceed with laminectomy. The wound was copiously irrigated and suctioned dry as had been done periodically throughout the case. I performed a laminectomy with a combination of curettes and a high-speed bur and Kerrison rongeurs. A small medial facetectomy was performed again further access. A partial foraminotomy was also performed. Portions of the ligamentum flavum were taken down to expose the dura and traversing nerve root. Note was made of significant spurring and compression from the facet particularly at the inferior articular facet. I was able to do wide foraminotomy and partial facetectomy And able excellent decompression over the traversing nerve root. I was able to mobilize the traversing nerve root and gain access to the disc space. Note was made of obvious compression from the disc. Protecting the soft tissue structures, a small annulotomy was established. I was able to perform discectomy and remove any extruded disc fragments and any loose fragments from within the disc itself. There is some disc desiccation noted. Note was made of significant adhesion of the traversing nerve root on to the disc itself. I did meticulous care to remove portions of the adhesion down however portions of the disc that was stuck to the nerve root was impossible to remove without damage to the covering of the nerve and the dura. I felt that further attempts to remove the adhesion would damage the dura itself and cause further damage may chose to leave some of the stalk that was adhesed down in place. As able get excellent dorsal decompression and excellent central decompression around the nerve root and dura. I tried to preserve the disc annulus that appeared stable. There were no further extruded fragments noted. There is no evidence of dural tear or leak. Good hemostasis maintained. The wound was copiously irrigated and suctioned dry. Good decompression and discectomy was noted. We were able to proceed with closure. The fascia was closed for a watertight closure. The subcuticular tissue was closed with absorbable suture. The wound was cleaned and dried and dressed with the appropriate dressing. The drapes were broken down. The patient was gently rolled back onto their hospital bed being careful to maintain their cervical spine and good neutral alignment and position. They were woken up by anesthesia, extubated, and brought to the recovery room in good stable condition. The patient will be admitted to the hospital for observation and for appropriate postoperative care, medical management and monitoring. We will continue to follow them closely about the postoperative course.
[2019-04-13] MEDS: HYDROmorphone 0.5 MG/0.5 ML SYRINGE IVP PRN ×5 (16:11→16:43)
[2019-04-13] MEDS: fentaNYL (PF) 50 MCG/ML 2 ML AMP IVP ONE ×2 (16:16→16:27)
[2019-04-13] MEDS: KETOROLAC 30 MG/ML 1 ML VIAL IVP SCH ×3 (16:33→23:01)
[2019-04-13] MEDS ORDERED: diphenhydrAMINE 50 MG/ML 1 ML VIAL IVP ONE (16:51)
[2019-04-13] MEDS: SODIUM CHLORIDE 0.9% 1,000 ML IV SCH ×2 (17:32→23:01)
[2019-04-14] MEDS: KETOROLAC 30 MG/ML 1 ML VIAL IVP SCH (05:47)
[2019-04-14 07:44] VITALS: BP 113/64; PULSE 53; RESP 18; TEMP 98
[2019-04-14] MEDS ORDERED: ONDANSETRON 4 MG/2 ML VIAL IVP PRN (07:50)
[2019-04-14] MEDS: LACTATED RINGERS 1,000 ML IV SCH (07:58)
[2019-04-14] MEDS ORDERED: MULTIVITAMINS, THERA 1 EACH TAB PO SCH (09:00)
[2019-04-14] MEDS ORDERED: amLODIPine 5 MG TAB PO SCH (09:00)
== END 2019-04-14 12:29 | disposition home or self-care (01) ==
LOC: OR 12:03 → 4SSUR 16:35 → OR 04-14 12:29
PROVIDERS: ATTEND Orthopaedic Surgery Orthopaedic Surgery of the Spine
DX: M51.17 Intervertebral disc disorders with radiculopathy, lumbosacral region (principal); M48.07 Spinal stenosis, lumbosacral region; I10 Essential (primary) hypertension; J45.909 Unspecified asthma, uncomplicated; K21.9 Gastro-esophageal reflux disease without esophagitis; Z79.899 Other long term (current) drug therapy; Z88.1 Allergy status to other antibiotic agents; Z88.5 Allergy status to narcotic agent; Z97.2 Presence of dental prosthetic device (complete) (partial)
CPT/HCPCS: 94760 ×2; 97161; 86900; 86901; 86850; 72020; 63047; J2250; J1200; J1040; J0690 ×2; J2405 ×2; J2001; J3010; J1885 ×2; J1170 ×2; J0330; J2704

== ENCOUNTER 2019-04-21 11:04 | Emergency (ER) | payer MEDICARE ==
[2019-04-21 11:10] VITALS: TEMP 98.3
[2019-04-21] MEDS ORDERED: SODIUM CHLORIDE 0.9% 1,000 ML IV STA (11:38)
--- NOTE | 2019-04-21 11:44 | ED ---
General Adult HPI - General Chief complaint: Chest Pain Stated complaint: Chest soreness Time Seen by Provider: 04/21/19 11:16 Source: patient, RN notes reviewed Mode of arrival: wheelchair Limitations: no limitations - History of Present Illness Initial comments: Patient is a pleasant 5 he 3-year-old female presenting to the emergency Department with complaints of soreness of her chest. Patient has had some soreness of her chest for the cast couple of days. Soreness is bilateral lateral chest of the lower ribs, no central or anterior chest discomfort. Patient is approximately 10 days postop lumbar discectomy and laminectomy. Patient believes that may be her muscles from moving differently getting out of bed. Patient states she stopped taking her Vicodin 2-3 days ago. Patient does feel slightly constipated. Patient has been shaky just today. Patient states she does not feel short of breath really. Patient also states she has a mild headache. Headache was gradual onset and is not severe. No fevers. No back pain or leg pain or leg weakness. - Related Data Home Medications Medication Instructions Recorded Confirmed Multivit-Min/FA/Lycopen/Lutein 1 tab PO DAILY 06/10/17 04/21/19 [Centrum Silver Tablet] amLODIPine [Norvasc] 5 mg PO QAM 03/18/19 04/21/19 Albuterol Nebulized [Ventolin 2.5 mg INHALATION Q6H PRN 04/12/19 04/21/19 Nebulized] Previous Rx's Medication Instructions Recorded Albuterol Inhaler [Ventolin Hfa 2 puff INHALATION Q6HR PRN #1 03/24/19 Inhaler] inhaler Allergies Allergy/AdvReac Type Severity Reaction Status Date / Time codeine AdvReac Itching Verified 04/21/19 11:44 erythromycin base AdvReac STOMACH Verified 04/21/19 11:44 PAIN Tetracyclines AdvReac Abdominal Verified 04/21/19 11:44 Pain Review of Systems ROS Statement: Those systems with pertinent positive or pertinent negative responses have been documented in the HPI. ROS Other: All systems not noted in ROS Statement are negative. Constitutional: Denies: fever Eyes: Denies: eye pain ENT: Denies: ear pain Respiratory: Denies: cough Cardiovascular: Reports: as per HPI Endocrine: Denies: fatigue Gastrointestinal: Denies: abdominal pain Genitourinary: Denies: dysuria Musculoskeletal: Reports: as per HPI Skin: Denies: rash Neurological: Denies: weakness Past Medical History Past Medical History: COPD, GERD/Reflux, Hypertension, Osteoarthritis (OA) Additional Past Medical History / Comment(s): Recent tx of UTI in Mar 2019,steroids Mar 2019,anemia, vertigo, chronic back pain,SOB-states "hx of lung surgery with scraping" History of Any Multi-Drug Resistant Organisms: None Reported Past Surgical History: Appendectomy, Section, Cholecystectomy, Hysterectomy, Orthopedic Surgery Additional Past Surgical History / Comment(s): bronchoscopy,states "surgery by Dr Wallace-scraped lungs" Past Anesthesia/Blood Transfusion Reactions: No Reported Reaction Past Psychological History: No Psychological Hx Reported Smoking Status: Never smoker Past Alcohol Use History: None Reported Past Drug Use History: None Reported - Past Family History Father Family Medical History: Cancer, Diabetes Mellitus Additional Family Medical History / Comment(s): lung cancer and bone cancer Mother Additional Family Medical History / Comment(s): emphysema Son(s) Family Medical History: Diabetes Mellitus, Dialysis Additional Family Medical History / Comment(s): pacemaker, 2017 General Exam Limitations: no limitations General appearance: alert, in no apparent distress Head exam: Present: normocephalic Eye exam: Present: normal appearance, PERRL ENT exam: Present: normal oropharynx Neck exam: Present: normal inspection. Absent: tenderness, meningismus Respiratory exam: Present: normal lung sounds bilaterally. Absent: chest wall tenderness Cardiovascular Exam: Present: regular rate, normal rhythm Expanded Peripheral pulses: 2+: Posterior Tibialis (R), Posterior Tibialis (L), Dorsalis Pedis (R), Dorsalis Pedis (L) GI/Abdominal exam: Present: soft. Absent: tenderness Extremities exam: Present: normal inspection. Absent: pedal edema, calf tenderness Back exam: Present: other (Lumbar incision is clean and dry and intact) Neurological exam: Present: alert. Absent: motor sensory deficit Expanded Motor strength exam: RUE: 5, LUE: 5, RLE: 5, LLE: 5 Psychiatric exam: Present: normal affect, normal mood Skin exam: Present: normal color. Absent: rash Course Vital Signs 04/21/19 11:07 Temperature 98.3 F Pulse Rate 92 Respiratory 24 Rate Blood Pressure 148/88 O2 Sat by Pulse 99 Oximetry EKG Findings - EKG Comments: EKG Findings:: Normal sinus rhythm 72. IN 144. QRS 82. QT 402. QTC 440. Normal axis. Normal QRS. T wave inversion leads V1 through V4. Medical Decision Making - Medical Decision Making Patient reevaluated and resting comfortably in bed, symptom-free. Abdomen soft and nontender. Patient updated on results and need for follow-up. - Lab Data Result diagrams: 04/21/19 12:00 04/21/19 12:00 Lab Results 04/21/19 04/21/19 04/21/19 Range/Units 12:00 12:00 12:00 WBC 8.0 (3.8-10.6) k/uL RBC 4.59 (3.80-5.40) m/uL Hgb 12.9 (11.4-16.0) gm/dL Hct 40.2 (34.0-46.0) % MCV 87.6 (80.0-100.0) fL MCH 28.1 (25.0-35.0) pg MCHC 32.1 (31.0-37.0) g/dL RDW 13.2 (11.5-15.5) % Plt Count 348 (150-450) k/uL Neutrophils % 65 % Lymphocytes % 24 % Monocytes % 5 % Eosinophils % 4 % Basophils % 1 % Neutrophils # 5.2 (1.3-7.7) k/uL Lymphocytes # 1.9 (1.0-4.8) k/uL Monocytes # 0.4 (0-1.0) k/uL Eosinophils # 0.3 (0-0.7) k/uL Basophils # 0.0 (0-0.2) k/uL PT 10.8 (9.0-12.0) sec INR 1.1 (<1.2) APTT 23.0 (22.0-30.0) sec Sodium 139 (137-145) mmol/L Potassium 4.5 (3.5-5.1) mmol/L Chloride 106 (98-107) mmol/L Carbon Dioxide 23 (22-30) mmol/L Anion Gap 10 mmol/L BUN 15 (7-17) mg/dL Creatinine 0.65 (0.52-1.04) mg/dL Est GFR (CKD-EPI)AfAm >90 (>60 ml/min/1.73 sqM) Est GFR (CKD-EPI)NonAf >90 (>60 ml/min/1.73 sqM) Glucose 177 H (74-99) mg/dL Calcium 9.2 (8.4-10.2) mg/dL Total Bilirubin 1.7 H (0.2-1.3) mg/dL AST 26 (14-36) U/L ALT 16 (4-34) U/L Alkaline Phosphatase 56 (38-126) U/L Troponin I (0.000-0.034) ng/mL Total Protein 7.3 (6.3-8.2) g/dL Albumin 4.1 (3.5-5.0) g/dL 04/21/19 Range/Units 12:00 WBC (3.8-10.6) k/uL RBC (3.80-5.40) m/uL Hgb (11.4-16.0) gm/dL Hct (34.0-46.0) % MCV (80.0-100.0) fL MCH (25.0-35.0) pg MCHC (31.0-37.0) g/dL RDW (11.5-15.5) % Plt Count (150-450) k/uL Neutrophils % % Lymphocytes % % Monocytes % % Eosinophils % % Basophils % % Neutrophils # (1.3-7.7) k/uL Lymphocytes # (1.0-4.8) k/uL Monocytes # (0-1.0) k/uL Eosinophils # (0-0.7) k/uL Basophils # (0-0.2) k/uL PT (9.0-12.0) sec INR (<1.2) APTT (22.0-30.0) sec Sodium (137-145) mmol/L Potassium (3.5-5.1) mmol/L Chloride (98-107) mmol/L Carbon Dioxide (22-30) mmol/L Anion Gap mmol/L BUN (7-17) mg/dL Creatinine (0.52-1.04) mg/dL Est GFR (CKD-EPI)AfAm (>60 ml/min/1.73 sqM) Est GFR (CKD-EPI)NonAf (>60 ml/min/1.73 sqM) Glucose (74-99) mg/dL Calcium (8.4-10.2) mg/dL Total Bilirubin (0.2-1.3) mg/dL AST (14-36) U/L ALT (4-34) U/L Alkaline Phosphatase (38-126) U/L Troponin I <0.012 (0.000-0.034) ng/mL Total Protein (6.3-8.2) g/dL Albumin (3.5-5.0) g/dL - Radiology Data Radiology results: report reviewed (CT angios chest negative for pulmonary embolism.) Disposition Clinical Impression: Rib pain Disposition: HOME SELF-CARE Condition: Stable Instructions (If sedation given, give patient instructions): Chest Pain (ED) Additional Instructions: Please follow-up this week with your primary care physician. Return for chest pain, central chest pain, difficulty breathing, worsening or changing symptoms or other concerns. Is patient prescribed a controlled substance at d/c from ED?: No Referrals: Jai Ye MD [Primary Care Provider] - 1-2 days Time of Disposition: 13:26
[2019-04-21 12:14] LABS: Basophils % (A) 1 %; Eosinophils # (A) 0.3 k/uL (0-0.7); Eosinophils % (A) 4 %; HCT 40.2 % (34.0-46.0); HGB 12.9 gm/dL (11.4-16.0); Lymphocytes # (A) 1.9 k/uL (1.0-4.8); Lymphocytes % (A) 24 %; MCH 28.1 pg (25.0-35.0); MCHC 32.1 g/dL (31.0-37.0); MCV 87.6 fL (80.0-100.0); Mean Platelet Volume 8.1; Monocytes # (A) 0.4 k/uL (0-1.0); Monocytes % (A) 5 %; Neutrophils # (A) 5.2 k/uL (1.3-7.7); Neutrophils % (A) 65 %; Platelet Count 348 k/uL (150-450); RBC 4.59 m/uL (3.80-5.40); RDW 13.2 % (11.5-15.5)
[2019-04-21 12:24] LABS: INR 1.1 (<1.2); Prothrombin Time 10.8 sec (9.0-12.0)
[2019-04-21 12:25] LABS: ALT 16 U/L (4-34); AST 26 U/L (14-36); African American GFR (CKD) >90 (>60 ml/min/1.73 sqM); Albumin 4.1 g/dL (3.5-5.0); Alkaline Phosphatase 56 U/L (38-126); Anion Gap 10 mmol/L; Blood Urea Nitrogen 15 mg/dL (7-17); Calcium 9.2 mg/dL (8.4-10.2); Carbon Dioxide 23 mmol/L (22-30); Chloride 106 mmol/L (98-107); Glucose 177 mg/dL (74-99); Non-African American GFR(CKD) >90 (>60 ml/min/1.73 sqM); Potassium 4.5 mmol/L (3.5-5.1); Sodium 139 mmol/L (137-145); Total Bilirubin 1.7 mg/dL (0.2-1.3); Total Protein 7.3 g/dL (6.3-8.2)
--- NOTE | 2019-04-21 13:00 | CT ---
EXAMINATION TYPE: CT angio chest DATE OF EXAM: 04/21/2019 COMPARISON: CT April 19, [address] August 20, 2016 HISTORY: Chest pain, SOB, recent back surgery CT DLP: 215.8 mGycm. Automated Exposure Control for Dose Reduction was Utilized. CONTRAST: CTA scan of the thorax is performed with IV Contrast, patient injected with 31 mL of Isovue 370, pulm onary embolism protocol. MIP Images are created on CT scanner and reviewed. FINDINGS: There is significant respiratory motion artifact degradation making evaluation suboptimal p articularly for subcentimeter nodularity. LUNGS: Some mild scattered linear scarring and/or atelectasis in both lower lungs is present. No susp icious masses. No pleural effusion or pneumothorax seen bilaterally. Patient's focal consolidation. MEDIASTINUM: There is satisfactory enhancement of the pulmonary artery and its branches, there is no CT evidence for pulmonary embolism. There are no greater than 1 cm hilar or mediastinal lymph nodes. No cardiomegaly or pericardial effusion is seen. Small sized thyroid gland. OTHER: Mild multilevel spurring thoracic spine. IMPRESSION: No CT evidence for acute pulmonary embolism. No suspicious acute pulmonary process.
[2019-04-21 13:39] VITALS: BP 132/97; PULSE 72; RESP 20
== END 2019-04-21 13:43 | disposition home or self-care (01) ==
LOC: EC 11:04
DX: R07.81 Pleurodynia (principal); R51 Headache; J44.9 Chronic obstructive pulmonary disease, unspecified; I10 Essential (primary) hypertension; Z79.899 Other long term (current) drug therapy; Z88.1 Allergy status to other antibiotic agents; Z88.5 Allergy status to narcotic agent
CPT/HCPCS: 36415; 93005; 80053; 84484; 85025; 85610; 85730; 71275; 99285; 96360; Q9967

== ENCOUNTER 2020-06-15 20:08 | Emergency (ER) | payer MEDICARE ==
[2020-06-15] MEDS ORDERED: ALBUTEROL HFA INHALER INHALATION STA (20:50)
[2020-06-15] MEDS ORDERED: DEXAMETHASONE SOD PHOSPHATE 10 MG/ML 1 ML VIAL IV STA (20:51)
[2020-06-15] MEDS ORDERED: ACETAMINOPHEN TAB 500 MG TAB PO STA (20:51)
[2020-06-15 20:54] LABS: VBG PH 7.44 (7.31-7.41)
[2020-06-15 20:55] LABS: Basophils % (A) 1 %; Eosinophils % (A) 1 %; HCT 40.5 % (34.0-46.0); HGB 13.4 gm/dL (11.4-16.0); Lymphocytes # (A) 0.5 k/uL (1.0-4.8); Lymphocytes % (A) 13 %; MCH 28.4 pg (25.0-35.0); MCHC 33.1 g/dL (31.0-37.0); MCV 85.8 fL (80.0-100.0); Mean Platelet Volume 9.1; Monocytes # (A) 0.2 k/uL (0-1.0); Monocytes % (A) 5 %; Neutrophils # (A) 2.9 k/uL (1.3-7.7); Neutrophils % (A) 79 %; Platelet Count 176 k/uL (150-450); RBC 4.72 m/uL (3.80-5.40); RDW 13.7 % (11.5-15.5); WBC 3.7 k/uL (3.8-10.6)
--- NOTE | 2020-06-15 21:02 | ED ---
General Adult HPI - General Chief complaint: Shortness of Breath Stated complaint: Cough, RA Time Seen by Provider: 06/15/20 20:29 Source: patient Mode of arrival: ambulatory Limitations: no limitations - History of Present Illness Initial comments: Dictation was produced using [employer] dictation software. please excuse any grammatical, word or spelling errors. This patient was cared for during a federal and state declared state of emergency secondary to Covid 19 Chief Complaint: 64-year-old female past nuchal history of COPD and hypertension presents with cough, shortness of breath 3 days History of Present Illness: 64-year-old female with past medical history of COPD, hypertension, osteoporosis arthritis. Patient states for the last 3 days she's been having symptoms. She has been trying to Dr. herself at home. Patient states she has a history of COPD. She does not wear oxygen at home. She has inhalers that she uses at home. She takes antihypertensive medications. The ROS documented in this emergency department record has been reviewed and confirmed by me. Those systems with pertinent positive or negative responses have been documented in the HPI. All other systems are other negative and/or noncontributory. PHYSICAL EXAM: General Impression: Alert and oriented x3, not in acute distress HEENT: Normocephalic atraumatic, extra-ocular movements intact, pupils equal and reactive to light bilaterally, mucous membranes moist. Cardiovascular: Heart regular rate and rhythm Chest: Able to complete full sentences, no retractions, no tachypnea, lungs clear to auscultation bilaterally Abdomen: abdomen soft, non-tender, non-distended, no organomegaly Musculoskeletal: Pulses present and equal in all extremities, no peripheral edema Motor: no focal deficits noted Neurological: CN II-XII grossly intact, no focal motor or sensory deficits noted Skin: Intact with no visualized rashes Psych: Normal affect and mood ED course: 64-year-old female presents with symptoms highly suspicious of Covid 19. Vital signs upon arrival shows her to 103.1, heart rate of 26, rest of vital signs within acceptable limits. Laboratory evaluation obtained. Mild leukopenia. Venous blood gas shows pH of 7.44 with normal pCO2 and bicarb. Metabolic panel is within acceptable limits. Coronavirus is positive. Chest x-ray shows mild peripheral opacities concerning for infiltrates. Clinical presentation consistent with Coban 19. EKG interpretation: Ventricular rate 85, normal sinus rhythm, PA interval 152, QRS 84, QTC 423. No PA prolongation, no QTC prolongation, no ST or T-wave changes noted. EKG compared to 04/21/2019 showing no changes. Overall, this EKG is unremarkable Patient is criteria for monoclonal antibody administration. Patient consents to infusion. - Related Data Home Medications Medication Instructions Recorded Confirmed Multivit-Min/FA/Lycopen/Lutein 1 tab PO DAILY 06/10/17 04/21/19 [Centrum Silver Tablet] amLODIPine [Norvasc] 5 mg PO QAM 03/18/19 04/21/19 Albuterol Nebulized [Ventolin 2.5 mg INHALATION Q6H PRN 04/12/19 04/21/19 Nebulized] Previous Rx's Medication Instructions Recorded Albuterol Inhaler (Mhu) [Ventolin 2 puff INHALATION Q6HR PRN #1 03/24/19 Hfa Inhaler (Mhu)] inhaler Allergies Allergy/AdvReac Type Severity Reaction Status Date / Time codeine AdvReac Itching Verified 06/15/20 20:23 erythromycin base AdvReac STOMACH Verified 06/15/20 20:23 PAIN Tetracyclines AdvReac Abdominal Verified 06/15/20 20:23 Pain Review of Systems ROS Statement: Those systems with pertinent positive or pertinent negative responses have been documented in the HPI. ROS Other: All systems not noted in ROS Statement are negative. Past Medical History Past Medical History: COPD, GERD/Reflux, Hypertension, Osteoarthritis (OA) Additional Past Medical History / Comment(s): Recent tx of UTI in Mar 2019,nazia roids Mar 2019,anemia, vertigo, chronic back pain,SOB-states "hx of lung surgery with scraping" History of Any Multi-Drug Resistant Organisms: None Reported Past Surgical History: Appendectomy, Section, Cholecystectomy, Hysterectomy, Orthopedic Surgery Additional Past Surgical History / Comment(s): bronchoscopy,states "surgery by Dr Wallace-scraped lungs" Past Anesthesia/Blood Transfusion Reactions: No Reported Reaction Past Psychological History: No Psychological Hx Reported Smoking Status: Never smoker Past Alcohol Use History: None Reported Past Drug Use History: None Reported - Past Family History Father Family Medical History: Cancer, Diabetes Mellitus Additional Family Medical History / Comment(s): lung cancer and bone cancer Mother Additional Family Medical History / Comment(s): emphysema Son(s) Family Medical History: Diabetes Mellitus, Dialysis Additional Family Medical History / Comment(s): pacemaker, 2017 General Exam Limitations: no limitations Course Vital Signs 06/15/20 06/15/20 06/15/20 20:21 20:45 21:23 Temperature 103.1 F H 101.3 F H Pulse Rate 83 80 Respiratory 22 26 H 20 Rate Blood Pressure 147/86 127/61 O2 Sat by Pulse 95 93 L Oximetry 06/15/20 22:13 Temperature 100.2 F H Pulse Rate 69 Respiratory 20 Rate Blood Pressure 120/60 O2 Sat by Pulse 91 L Oximetry Medical Decision Making - Lab Data Result diagrams: 06/15/20 20:44 06/15/20 20:44 Lab Results 06/15/20 06/15/20 06/15/20 Range/Units 20:44 20:44 20:44 WBC 3.7 L (3.8-10.6) k/uL RBC 4.72 (3.80-5.40) m/uL Hgb 13.4 (11.4-16.0) gm/dL Hct 40.5 (34.0-46.0) % MCV 85.8 (80.0-100.0) fL MCH 28.4 (25.0-35.0) pg MCHC 33.1 (31.0-37.0) g/dL RDW 13.7 (11.5-15.5) % Plt Count 176 (150-450) k/uL MPV 9.1 Neutrophils % 79 % Lymphocytes % 13 % Monocytes % 5 % Eosinophils % 1 % Basophils % 1 % Neutrophils # 2.9 (1.3-7.7) k/uL Lymphocytes # 0.5 L (1.0-4.8) k/uL Monocytes # 0.2 (0-1.0) k/uL Eosinophils # 0.0 (0-0.7) k/uL Basophils # 0.0 (0-0.2) k/uL VBG pH (7.31-7.41) VBG pCO2 (37-51) mmHg VBG HCO3 (24-28) mmol/L Sodium 132 L (137-145) mmol/L Potassium 4.7 (3.5-5.1) mmol/L Chloride 98 (98-107) mmol/L Carbon Dioxide 27 (22-30) mmol/L Anion Gap 7 mmol/L BUN 18 H (7-17) mg/dL Creatinine 0.80 (0.52-1.04) mg/dL Est GFR (CKD-EPI)AfAm 90 (>60 ml/min/1.73 sqM) Est GFR (CKD-EPI)NonAf 78 (>60 ml/min/1.73 sqM) Glucose 195 H (74-99) mg/dL Calcium 8.4 (8.4-10.2) mg/dL Coronavirus (PCR) Detected A (Not Detectd) 06/15/20 Range/Units 20:44 WBC (3.8-10.6) k/uL RBC (3.80-5.40) m/uL Hgb (11.4-16.0) gm/dL Hct (34.0-46.0) % MCV (80.0-100.0) fL MCH (25.0-35.0) pg MCHC (31.0-37.0) g/dL RDW (11.5-15.5) % Plt Count (150-450) k/uL MPV Neutrophils % % Lymphocytes % % Monocytes % % Eosinophils % % Basophils % % Neutrophils # (1.3-7.7) k/uL Lymphocytes # (1.0-4.8) k/uL Monocytes # (0-1.0) k/uL Eosinophils # (0-0.7) k/uL Basophils # (0-0.2) k/uL VBG pH 7.44 H (7.31-7.41) VBG pCO2 41 (37-51) mmHg VBG HCO3 27 (24-28) mmol/L Sodium (137-145) mmol/L Potassium (3.5-5.1) mmol/L Chloride (98-107) mmol/L Carbon Dioxide (22-30) mmol/L Anion Gap mmol/L BUN (7-17) mg/dL Creatinine (0.52-1.04) mg/dL Est GFR (CKD-EPI)AfAm (>60 ml/min/1.73 sqM) Est GFR (CKD-EPI)NonAf (>60 ml/min/1.73 sqM) Glucose (74-99) mg/dL Calcium (8.4-10.2) mg/dL Coronavirus (PCR) (Not Detectd) Disposition Clinical Impression: COVID-19 Disposition: HOME SELF-CARE Condition: Fair Instructions (If sedation given, give patient instructions): Viral Pneumonia (ED) Additional Instructions: Today you were evaluated for symptoms consistent with upper respiratory infection. Today you tested positive for Covid 19. Your are stable for discharge, however it is instructed to to seek immediate medical attention especially if you develop worsening symptoms especially respiratory distress. If possible, try to obtain a pulse oximeter and monitor your oxygen at home. In the meantime please remain in quarantine for 14 days. For any other questions please contact Arian for here in emergency department or [facility] at [phone] Is patient prescribed a controlled substance at d/c from ED?: No Referrals: Jai Ye MD [Primary Care Provider] - 1-2 days
[2020-06-15 21:06] LABS: Calcium 8.4 mg/dL (8.4-10.2)
--- NOTE | 2020-06-15 21:08 | XR ---
EXAMINATION TYPE: XR chest 1V portable DATE OF EXAM: 06/15/2020 COMPARISON: 01/04/2020. HISTORY: Cough and fever. TECHNIQUE: Single frontal view of the chest is obtained. FINDINGS: There is bilateral mild peripheral opacities. No pleural effusion, or pneumothorax seen. The cardiac silhouette size is enlarged. The osseous structures are intact. IMPRESSION: Mild peripheral opacities, concerning for infiltrates.
[2020-06-15 21:09] LABS: Potassium 4.7 mmol/L (3.5-5.1)
[2020-06-15] MEDS ORDERED: BAMLANIVIMAB 700 MG in SODIUM CHLORIDE 0.9% 50 ML IVPB ONE (22:00)
[2020-06-15 23:45] VITALS: BP 122/71; PULSE 70; RESP 18; TEMP 99
== END 2020-06-15 23:47 | disposition home or self-care (01) ==
LOC: EC 20:08
DX: U07.1 COVID-19 (principal); D72.819 Decreased white blood cell count, unspecified; R91.8 Other nonspecific abnormal finding of lung field; J44.9 Chronic obstructive pulmonary disease, unspecified; I10 Essential (primary) hypertension; Z79.51 Long term (current) use of inhaled steroids; Z79.899 Other long term (current) drug therapy; Z88.5 Allergy status to narcotic agent; Z88.1 Allergy status to other antibiotic agents
CPT/HCPCS: 36415; 94640; 93005; 80048; 82803; 85025; 87635; 71045; 99285; 96365; 96375; J1100; Q0239

== ENCOUNTER 2020-06-17 22:03 | Inpatient (IN) | payer MEDICARE ==
[2020-06-17] MEDS ORDERED: ACETAMINOPHEN TAB 500 MG TAB PO STA (23:05)
[2020-06-17] MEDS ORDERED: ALBUTEROL HFA INHALER INHALATION STA (23:05)
[2020-06-17] MEDS ORDERED: SODIUM CHLORIDE 0.9% 1,000 ML IV STA ×2 (23:06)
[2020-06-17] MEDS ORDERED: MORPHINE SULFATE 4 MG/ML SYRINGE IVP PRN (23:06)
[2020-06-17] MEDS ORDERED: MORPHINE SULFATE 4 MG/ML SYRINGE IVP STA (23:06)
[2020-06-17] MEDS ORDERED: KETOROLAC 15 MG/ML 1 ML VIAL IVP STA (23:06)
[2020-06-17] MEDS ORDERED: DEXAMETHASONE SOD PHOSPHATE 10 MG/ML 1 ML VIAL IV STA (23:06)
--- NOTE | 2020-06-17 23:24 | ED ---
Recheck HPI - General Chief Complaint: Shortness of Breath Stated Complaint: SOB, Covid+ Time Seen by Provider: 06/17/20 22:27 Source: patient Mode of arrival: EMS Limitations: no limitations - Related Data Home Medications Medication Instructions Recorded Confirmed Albuterol Sulfate [Albuterol 2 puff PO RT-Q4H PRN 06/17/20 06/17/20 Sulfate Hfa] Allergies Allergy/AdvReac Type Severity Reaction Status Date / Time codeine AdvReac Itching Verified 06/17/20 23:25 erythromycin base AdvReac STOMACH Verified 06/17/20 23:25 PAIN Tetracyclines AdvReac Abdominal Verified 06/17/20 23:25 Pain Review of Systems ROS Statement: Those systems with pertinent positive or pertinent negative responses have been documented in the HPI. ROS Other: All systems not noted in ROS Statement are negative. Past Medical History Past Medical History: COPD, GERD/Reflux, Hypertension, Osteoarthritis (OA) Additional Past Medical History / Comment(s): Recent tx of UTI in Mar 2019,steroids Mar 2019,anemia, vertigo, chronic back pain,SOB-states "hx of lung surgery with scraping" History of Any Multi-Drug Resistant Organisms: None Reported Past Surgical History: Appendectomy, Section, Cholecystectomy, Hysterectomy, Orthopedic Surgery Additional Past Surgical History / Comment(s): bronchoscopy,states "surgery by Dr Wallace-scraped lungs" Past Anesthesia/Blood Transfusion Reactions: No Reported Reaction Past Psychological History: No Psychological Hx Reported Smoking Status: Never smoker Past Alcohol Use History: None Reported Past Drug Use History: None Reported - Past Family History Father Family Medical History: Cancer, Diabetes Mellitus Additional Family Medical History / Comment(s): lung cancer and bone cancer Mother Additional Family Medical History / Comment(s): emphysema Son(s) Family Medical History: Diabetes Mellitus, Dialysis Additional Family Medical History / Comment(s): pacemaker, 2017 General Exam Limitations: no limitations Course Vital Signs 06/17/20 06/17/20 06/17/20 22:14 22:18 22:53 Temperature 99.0 F Pulse Rate 63 64 Respiratory 18 22 20 Rate Blood Pressure 130/83 134/74 O2 Sat by Pulse 97 97 Oximetry 06/18/20 00:40 Temperature Pulse Rate 62 Respiratory 22 Rate Blood Pressure 134/74 O2 Sat by Pulse 96 Oximetry Medical Decision Making - Lab Data Result diagrams: 06/18/20 00:39 - EKG Data -: EKG Interpreted by Me (EKG shows sinus bradycardia 57 PA 148 QRS 86 QTc 426) Disposition Clinical Impression: COVID-19, Coronavirus infection, Pneumonia due to COVID-19 virus Disposition: ADMITTED IP TO THIS HOSP Condition: Fair Is patient prescribed a controlled substance at d/c from ED?: No
--- NOTE | 2020-06-18 00:05 | XR ---
EXAMINATION TYPE: XR chest 1V portable DATE OF EXAM: 06/17/2020 COMPARISON: 06/15/2020 HISTORY: Cough and fever TECHNIQUE: Single view FINDINGS: There is some mild interstitial infiltrates in the mid and lower lung manriquez. Heart is enla rged. There is no heart failure. Bony thorax is intact. IMPRESSION: Interstitial pulmonary infiltrates. This appears increased compared to old exam.
[2020-06-18] MEDS ORDERED: NALOXONE 0.4 MG/ML 1 ML VIAL IV PRN (00:18)
[2020-06-18] MEDS ORDERED: IBUPROFEN 400 MG TAB PO PRN (00:18)
[2020-06-18] MEDS ORDERED: ACETAMINOPHEN TAB 325 MG TAB PO PRN (00:18)
[2020-06-18 01:39] LABS: Basophils % (A) 0 %; Eosinophils % (A) 1 %; HCT 40.2 % (34.0-46.0); HGB 13.4 gm/dL (11.4-16.0); Lymphocytes # (A) 1.2 k/uL (1.0-4.8); Lymphocytes % (A) 25 %; MCH 28.6 pg (25.0-35.0); MCHC 33.4 g/dL (31.0-37.0); MCV 85.8 fL (80.0-100.0); Mean Platelet Volume 9.6; Monocytes # (A) 0.2 k/uL (0-1.0); Monocytes % (A) 4 %; Neutrophils # (A) 3.2 k/uL (1.3-7.7); Neutrophils % (A) 68 %; Platelet Count 147 k/uL (150-450); RBC 4.69 m/uL (3.80-5.40); RDW 13.4 % (11.5-15.5); WBC 4.7 k/uL (3.8-10.6)
[2020-06-18 02:00] LABS: ALT 23 U/L (4-34); AST 55 U/L (14-36); African American GFR (CKD) >90 (>60 ml/min/1.73 sqM); Alkaline Phosphatase 34 U/L (38-126); Anion Gap 8 mmol/L; Blood Urea Nitrogen 17 mg/dL (7-17); C Reactive Protein 58.4 mg/L (<10.0); Calcium 8.8 mg/dL (8.4-10.2); Carbon Dioxide 27 mmol/L (22-30); Chloride 101 mmol/L (98-107); Glucose 120 mg/dL (74-99); LDH 1154 U/L (313-618); Magnesium 1.9 mg/dL (1.6-2.3); Non-African American GFR(CKD) >90 (>60 ml/min/1.73 sqM); Potassium 5.1 mmol/L (3.5-5.1); Sodium 136 mmol/L (137-145); Total Protein 7.3 g/dL (6.3-8.2)
[2020-06-18 02:02] LABS: Partial Thromboplastin Time 23.7 sec (22.0-30.0); Prothrombin Time 10.5 sec (9.0-12.0)
[2020-06-18] MEDS: SODIUM CHLORIDE 0.9% 1,000 ML IV SCH ×3 (06:01→20:39)
[2020-06-18] MEDS: ALBUTEROL HFA INHALER INHALATION PRN ×3 (07:14→22:11)
[2020-06-18] MEDS: ENOXAPARIN 40 MG/0.4 ML SYRINGE SQ SCH (10:14)
--- NOTE | 2020-06-18 10:58 | P.CNPUL ---
History of Present Illness Consult date: 06/18/20 Requesting physician: Krystle Prieto Reason for consult: dyspnea, cough, hypoxemia, pneumonia, abnormal CXR/CT Chief complaint: Shortness of breath, cough, abnormal x-ray. Using History of present illness: This is a 64-year-old female, who has not been feeling well for about 6 or 7 days. She apparently was in the ER last Thursday, and received BAM. She went home and was hoping to feel better, but in fact, her symptoms worsen. She became much more short of breath, had dry nonproductive cough, chest pain when she coughed, and generally just not feeling well with fatigue and weakness. Currently, she is on 3 L nasal cannula, and getting saline IV at 100 mL an hour. She sees my partner Dr. Bone for COPD. She is a good candidate for REM. She should also receive Decadron, the COVID 19 vitamin cocktail, and Lovenox. White count is 4.7, hemoglobin 13.4, hematocrit 40.2, and platelet count 147,000. PT/INR and PTT are normal. I don't see a d-dimer. Sodium 136, potassium 5.1, chlorides 101, CO2 27, anion gap 8, BUN 17, and creatinine 0.70. LDH is 1154, and C-reactive protein is 58.4. Chest x-ray shows bilateral infiltrates, more left than right sided. Review of Systems REVIEW OF SYSTEMS: CONSTITUTIONAL: Fatigue, weakness, decreased appetite. NEUROLOGIC: [ Negative.] HEENT: [ Negative.] CARDIAC: [Negative.] PULMONARY: Shortness of breath, nonproductive cough, pain in chest wall coughing. GI: [Negative.] : [Negative.] RHEUMATOLOGIC: [ Negative.] IMMUNOLOGIC: [ Negative.] ENDOCRINE: [Negative. ] DERMATOLOGIC: [Negative.] Past Medical History Past Medical History: COPD, GERD/Reflux, Hypertension, Osteoarthritis (OA) Additional Past Medical History / Comment(s): Recent tx of UTI in Mar 2019,steroids Mar 2019,anemia, vertigo, chronic back pain,SOB-states "hx of lung surgery with scraping" History of Any Multi-Drug Resistant Organisms: None Reported Past Surgical History: Appendectomy, Section, Cholecystectomy, Hysterectomy, Orthopedic Surgery Additional Past Surgical History / Comment(s): bronchoscopy,states "surgery by Dr Dencklau-scraped lungs" Past Anesthesia/Blood Transfusion Reactions: No Reported Reaction Past Psychological History: No Psychological Hx Reported Smoking Status: Never smoker Past Alcohol Use History: None Reported Past Drug Use History: None Reported - Past Family History Father Family Medical History: Cancer, Diabetes Mellitus Additional Family Medical History / Comment(s): lung cancer and bone cancer Mother Additional Family Medical History / Comment(s): emphysema Son(s) Family Medical History: Diabetes Mellitus, Dialysis Additional Family Medical History / Comment(s): pacemaker, 2017 Medications and Allergies Home Medications Medication Instructions Recorded Confirmed Type Albuterol Sulfate [Albuterol 2 puff PO RT-Q4H PRN 06/17/20 06/17/20 History Sulfate Hfa] Allergies Allergy/AdvReac Type Severity Reaction Status Date / Time codeine AdvReac Itching Verified 06/17/20 23:25 erythromycin base AdvReac STOMACH Verified 06/17/20 23:25 PAIN Tetracyclines AdvReac Abdominal Verified 06/17/20 23:25 Pain Physical Exam Osteopathic Statement: *. No significant issues noted on an osteopathic structural exam other than those noted in the History and Physical/Consult. Vitals: Vital Signs Temp Pulse Resp BP Pulse Ox 06/18/20 06:16 55 L 16 127/73 100 06/18/20 02:09 72 16 137/72 94 L 06/18/20 00:40 62 22 134/74 96 06/17/20 22:53 64 20 134/74 97 06/17/20 22:18 22 06/17/20 22:14 99.0 F 63 18 130/83 97 Intake and Output 06/17/20 06/18/20 06/18/20 22:59 06:59 14:59 Other: Weight 67.132 kg No acute distress, oriented 3. Currently on 3 L nasal cannula. No audible wheezing, or use of accessory muscles. HEENT examination is grossly unremarkable. Mucous membranes are moist. No oral lesions. Neck supple. Full range of motion. No adenopathy thyromegaly or neck vein distention. Cardiovascular examination reveals regular rhythm rate. S1-S2 normal. No S3 or S4. No discernible murmur noted. Heart rate 55 bpm. Lungs reveal coarse bilateral rhonchi. Breath sounds equal. No wheezes. Slight prolongation on forced maneuver. Basilar crackles noted. Abdomen soft bowel sounds are heard. No masses or tenderness. Extremities are intact. No cyanosis clubbing or edema. Skin is without rash or lesion. Neurologic examination is brief but nonfocal. Results - Laboratory Findings CBC and BMP: 06/18/20 00:39 06/18/20 00:39 PT/INR, D-dimer PT 10.5 sec (9.0-12.0) 06/18/20 00:39 INR 1.0 (<1.2) 06/18/20 00:39 Abnormal lab findings: Abnormal Labs 06/18/20 06/18/20 00:39 00:39 Plt Count 147 L Sodium 136 L Glucose 120 H AST 55 H Alkaline Phosphatase 34 L Lactate Dehydrogenase 1154 H C-Reactive Protein 58.4 H - Diagnostic Findings Chest x-ray: image reviewed Assessment and Plan Assessment: Acute hypoxemic respiratory failure secondary to COVID 19 pneumonia/pneumonitis. Status post BAM therapy on 06/15/2020. History of gastroesophageal reflux disease. Give hypertension. History of osteoarthritis. History of anemia. History of vertigo. Plan: Plan dated 06/18/2020. Patient should receive Lovenox, Decadron, vitamin C, vitamin D3, and zinc. In addition, because her symptoms began about 6 or 7 days ago, she is a candidate for REM. It will be started. We will continue to watch the patient very carefully. Additional recommendations and suggestions are forthcoming. Prognosis is guarded. We will continue to follow and make recommendations were appropriate. Time with Patient: Greater than 30
[2020-06-18] MEDS ORDERED: REMDESIVIR 200 MG in SODIUM CHLORIDE 0.9% 250 ML IVPB ONE (11:00)
--- NOTE | 2020-06-18 15:40 | P.HPIM ---
History of Present Illness 62-year-old female came in with the complaints of worsening shortness of breath and nonproductive cough. Patient was recently diagnosed with the Coumadin 19 received Bam infusion in spite of which patient's symptoms continued to get worse. Patient received Bam infusion last Thursday. Patient is presently receiving IV fluids Decadron vitamin cocktail and Lovenox. Patient is presently on 3 L of oxygen saturating well. Review of Systems REVIEW OF SYSTEMS: CONSTITUTIONAL: As mentioned in HPI HEENT: No recent visual problems or hearing problems. Denied any sore throat. CARDIOVASCULAR: No chest pain, orthopnea, PND, no palpitations, no syncope. PULMONARY: As mentioned in HPI GASTROINTESTINAL: No diarrhea, no nausea, no vomiting, no abdominal pain. NEUROLOGICAL: No headaches, no weakness, no numbness. HEMATOLOGICAL: Denies any bleeding or petechiae. GENITOURINARY: Denies any burning micturition, frequency, or urgency. MUSCULOSKELETAL/RHEUMATOLOGICAL: Denies any joint pain, swelling, or any muscle pain. ENDOCRINE: Denies any polyuria or polydipsia. The rest of the 14-point review of systems is negative. Past Medical History Past Medical History: COPD, GERD/Reflux, Hyperlipidemia, Hypertension, Osteoarthritis (OA), Pneumonia, Respiratory Disorder Additional Past Medical History / Comment(s): Pt tested covid + 06/15/20 at [facility]. Other hx: Bronchitis, SOB, vertigo, chronic low back pain with R sided sciatica. History of Any Multi-Drug Resistant Organisms: None Reported Past Surgical History: Appendectomy, Back Surgery, Section, Cholecystectomy, Hysterectomy, Orthopedic Surgery Additional Past Surgical History / Comment(s): R lung thorascopic decortication d/t lung infection, lumbar laminectomy, L ankle fracture with surgical repair/hardware, colonoscopy. Past Anesthesia/Blood Transfusion Reactions: No Reported Reaction Smoking Status: Never smoker - Past Family History Father Family Medical History: Cancer, Diabetes Mellitus Additional Family Medical History / Comment(s): lung cancer and bone cancer Mother Additional Family Medical History / Comment(s): emphysema Son(s) Family Medical History: Diabetes Mellitus, Dialysis Additional Family Medical History / Comment(s): pacemaker, 2017 Medications and Allergies Home Medications Medication Instructions Recorded Confirmed Type Albuterol Sulfate [Albuterol 2 puff PO RT-Q4H PRN 06/17/20 06/17/20 History Sulfate Hfa] Allergies Allergy/AdvReac Type Severity Reaction Status Date / Time codeine AdvReac Itching Verified 06/17/20 23:25 erythromycin base AdvReac STOMACH Verified 06/17/20 23:25 PAIN Tetracyclines AdvReac Abdominal Verified 06/17/20 23:25 Pain Physical Exam Vitals: Vital Signs Temp Pulse Pulse Resp BP BP Pulse Ox 06/18/20 08:00 51 L 16 126/63 99 06/18/20 06:16 55 L 16 127/73 100 06/18/20 02:09 72 16 137/72 94 L 06/18/20 00:40 62 22 134/74 96 06/17/20 22:53 64 20 134/74 97 06/17/20 22:18 22 06/17/20 22:14 99.0 F 63 18 130/83 97 Intake and Output 06/18/20 06/18/20 06/18/20 06:59 14:59 22:59 Other: Weight 67.132 kg PHYSICAL EXAMINATION: GENERAL: The patient is alert and oriented x3, not in any acute distress. Well developed, well nourished. HEENT: Pupils are round and equally reacting to light. EOMI. No scleral icterus. No conjunctival pallor. Normocephalic, atraumatic. No pharyngeal erythema. No thyromegaly. CARDIOVASCULAR: S1 and S2 present. No murmurs, rubs, or gallops. PULMONARY: Chest is clear to auscultation, no wheezing or crackles. ABDOMEN: Soft, nontender, nondistended, normoactive bowel sounds. No palpable organomegaly. MUSCULOSKELETAL: No joint swelling or deformity. EXTREMITIES: No cyanosis, clubbing, or pedal edema. NEUROLOGICAL: Gross neurological examination did not reveal any focal deficits. SKIN: No rashes. Note: Because of COVID 19 isolation, some of the history and physical exam findings are indirect and obtained from nursing staff, and other physician examinations to avoid unnecessary contact with the patient. Results CBC & Chem 7: 06/18/20 00:39 06/18/20 00:39 Labs: Abnormal Lab Results - Last 24 Hours (Table) 06/18/20 06/18/20 Range/Units 00:39 00:39 Plt Count 147 L (150-450) k/uL Sodium 136 L (137-145) mmol/L Glucose 120 H (74-99) mg/dL AST 55 H (14-36) U/L Alkaline Phosphatase 34 L (38-126) U/L Lactate Dehydrogenase 1154 H (313-618) U/L C-Reactive Protein 58.4 H (<10.0) mg/L Thrombosis Risk Factor Assmnt - Choose All That Apply Any of the Below Risk Factors Present?: Yes Each Factor Represents 1 point: Abnormal pulmonary function (COPD), Obesity (BMI >25), Serious lung disease incl. pneumonia (< 1month) Other Risk Factors: Yes Each Risk Factor Represents 2 Points: Age 61-74 years Other congenital or acquired thrombophilia - If yes, enter type in comment: No Thrombosis Risk Factor Assessment Total Risk Factor Score: 5 Thrombosis Risk Factor Assessment Level: High Risk Assessment and Plan Plan: Acute hypoxic respiratory failure: Secondary to cold with 90 pneumonia: Patient will continued on Decadron, patient is being started on Remdesivir. Patient is also on Covid vitamin and Lovenox. -Gastroesophageal reflux disease DVT prophylaxis: With Lovenox -
[2020-06-18] MEDS: ONDANSETRON 4 MG/2 ML VIAL IVP PRN (23:54)
[2020-06-19] MEDS: SODIUM CHLORIDE 0.9% 1,000 ML IV SCH ×2 (06:37→19:54)
[2020-06-19 07:14] LABS: Basophils % (A) 0 %; Eosinophils % (A) 0 %; HGB 11.4 gm/dL (11.4-16.0); Lymphocytes % (A) 22 %; MCH 30.1 pg (25.0-35.0); MCHC 34.5 g/dL (31.0-37.0); MCV 87.2 fL (80.0-100.0); Mean Platelet Volume 9.3; Monocytes # (A) 0.2 k/uL (0-1.0); Monocytes % (A) 4 %; Neutrophils # (A) 3.4 k/uL (1.3-7.7); Neutrophils % (A) 73 %; Platelet Count 138 k/uL (150-450); RBC 3.78 m/uL (3.80-5.40); RDW 13.5 % (11.5-15.5); WBC 4.7 k/uL (3.8-10.6)
[2020-06-19 07:36] LABS: ALT 26 U/L (4-34); AST 39 U/L (14-36); African American GFR (CKD) >90 (>60 ml/min/1.73 sqM); Albumin 2.9 g/dL (3.5-5.0); Alkaline Phosphatase 37 U/L (38-126); Anion Gap 2 mmol/L; Blood Urea Nitrogen 14 mg/dL (7-17); Calcium 7.9 mg/dL (8.4-10.2); Carbon Dioxide 28 mmol/L (22-30); Chloride 109 mmol/L (98-107); Glucose 135 mg/dL (74-99); Magnesium 1.9 mg/dL (1.6-2.3); Non-African American GFR(CKD) >90 (>60 ml/min/1.73 sqM); Phosphorus 3.3 mg/dL (2.5-4.5); Potassium 4.3 mmol/L (3.5-5.1); Sodium 139 mmol/L (137-145); Total Bilirubin 0.4 mg/dL (0.2-1.3); Total Protein 5.4 g/dL (6.3-8.2)
[2020-06-19] MEDS: ONDANSETRON 4 MG/2 ML VIAL IVP PRN (08:15)
[2020-06-19] MEDS: CHOLECALCIFEROL 25 MCG (1000 IU) TABLET PO SCH (08:15)
[2020-06-19] MEDS: ASCORBIC ACID 500 MG TAB PO SCH (08:15)
[2020-06-19] MEDS: ENOXAPARIN 40 MG/0.4 ML SYRINGE SQ SCH (08:15)
[2020-06-19] MEDS: ZINC SULFATE 220 MG CAP PO SCH (08:15)
[2020-06-19] MEDS: ALBUTEROL HFA INHALER INHALATION PRN ×3 (08:34→20:28)
[2020-06-19] MEDS ORDERED: METOCLOPRAMIDE 5 MG/ML 2 ML VIAL IVP PRN (10:40)
[2020-06-19] MEDS: REMDESIVIR 100 MG in SODIUM CHLORIDE 0.9% 250 ML IVPB SCH (10:57)
--- NOTE | 2020-06-19 11:14 | P.PN ---
Subjective Progress Note Date: 06/19/20 Principal diagnosis: Shortness of breath. This is a 64-year-old female, who has not been feeling well for about 6 or 7 days. She apparently was in the ER last Thursday, and received BAM. She went home and was hoping to feel better, but in fact, her symptoms worsen. She became much more short of breath, had dry nonproductive cough, chest pain when she coughed, and generally just not feeling well with fatigue and weakness. Currently, she is on 3 L nasal cannula, and getting saline IV at 100 mL an hour. She sees my partner Dr. Bone for COPD. She is a good candidate for REM. She should also receive Decadron, the COVID 19 vitamin cocktail, and Lovenox. White count is 4.7, hemoglobin 13.4, hematocrit 40.2, and platelet count 147,000. PT/INR and PTT are normal. I don't see a d-dimer. Sodium 136, potassium 5.1, chlorides 101, CO2 27, anion gap 8, BUN 17, and creatinine 0.70. LDH is 1154, and C-reactive protein is 58.4. Chest x-ray shows bilateral infiltrates, more left than right sided. Progress note dated 06/19/2020. Progress note dated 06/19/2020. Currently, the patient is not feeling much better today. She remains on 2 L nasal cannula. She's getting saline at 100 mL an hour. She's been having lots of nausea and vomiting. Some Reglan has been ordered. White count is 4.7. Hemoglobin 11.4, hematocrit 33, and platelet count 138,000. Sodium 139, potassium 4.3, chlorides 109, CO2 28, anion gap 2, BUN 14, creatinine 0.61. The patient was given REM yesterday. She is also on usual medications including Decadron, vitamin C, vitamin D3, and zinc. In addition, she is on Lovenox. Objective - Vital Signs Vital signs: Vital Signs Temp 97.6 F 06/19/20 07:38 Pulse 46 L 06/19/20 07:38 Resp 20 06/19/20 07:38 BP 157/79 06/19/20 07:38 Pulse Ox 95 06/19/20 08:35 Intake & Output 06/18/20 06/19/20 06/19/20 18:59 06:59 18:59 Intake Total 1350 800 240 Output Total 100 Balance 1350 700 240 Weight 67.132 kg Intake: Intake, IV Titration 1350 800 Amount Remdesivir 100 mg In 250 Sodium Chloride 0.9% 250 ml @ 250 mls/hr IVPB DAILY@1100 [facility] Rx#: [id number] Sodium Chloride 0.9% 1, 1100 800 000 ml @ 100 mls/hr IV . Q10H [facility] Rx#:[id number] Oral 240 Output: Emesis 100 - Exam No acute distress, oriented 3. Currently on 2 L nasal cannula. No audible wheezing, or use of accessory muscles. HEENT examination is grossly unremarkable. Mucous membranes are moist. No oral lesions. Neck supple. Full range of motion. No adenopathy thyromegaly or neck vein distention. Cardiovascular examination reveals regular rhythm rate. S1-S2 normal. No S3 or S4. No discernible murmur noted. Heart rate 49 bpm. Lungs reveal coarse bilateral rhonchi. Breath sounds equal. No wheezes. Slight prolongation on forced maneuver. Basilar crackles noted. Abdomen soft bowel sounds are heard. No masses or tenderness. Extremities are intact. No cyanosis clubbing or edema. Skin is without rash or lesion. Neurologic examination is brief but nonfocal - Labs CBC & Chem 7: 06/19/20 06:35 06/19/20 06:35 Labs: Abnormal Lab Results - Last 24 Hours (Table) 06/19/20 06/19/20 Range/Units 06:35 06:35 RBC 3.78 L (3.80-5.40) m/uL Hct 33.0 L (34.0-46.0) % Plt Count 138 L (150-450) k/uL Chloride 109 H (98-107) mmol/L Glucose 135 H (74-99) mg/dL Calcium 7.9 L (8.4-10.2) mg/dL AST 39 H (14-36) U/L Alkaline Phosphatase 37 L (38-126) U/L Total Protein 5.4 L (6.3-8.2) g/dL Albumin 2.9 L (3.5-5.0) g/dL Microbiology - Last 24 Hours (Table) 06/18/20 00:39 Blood Culture - Preliminary Blood No Growth after 24 hours Assessment and Plan Assessment: Acute hypoxemic respiratory failure secondary to COVID 19 pneumonia/pneumonitis. Status post BAM therapy on 06/15/2020. History of gastroesophageal reflux disease. Give hypertension. History of osteoarthritis. History of anemia. History of vertigo. This is Plan: Plan dated 06/18/2020. Patient should receive Lovenox, Decadron, vitamin C, vitamin D3, and zinc. In addition, because her symptoms began about 6 or 7 days ago, she is a candidate for REM. It will be started. We will continue to watch the patient very carefully. Additional recommendations and suggestions are forthcoming. Prognosis is guarded. We will continue to follow and make recommendations were appropriate. Plan dated 06/19/2020. Currently, the patient's doing about the same from the pulmonary standpoint. She is having a lot of nausea and vomiting. She will receive some Reglan for that. She's getting saline at 100 mL an hour. Nasal O2 is at 2 L. The patient was given Lovenox, Decadron, vitamin C, vitamin D3, and zinc. In addition, we recommended REM. We will continue to follow make recommendations were appropriate and prognosis is guarded. Time with Patient: Less than 30
[2020-06-19] MEDS: DEXAMETHASONE SOD PHOSPHATE 10 MG/ML 1 ML VIAL IV SCH (12:19)
[2020-06-19 12:48] VITALS: BMI 29.9
--- NOTE | 2020-06-19 14:10 | P.PN ---
Subjective 62-year-old female came in with the complaints of worsening shortness of breath and nonproductive cough. Patient was recently diagnosed with the Coumadin 19 received Bam infusion in spite of which patient's symptoms continued to get worse. Patient received Bam infusion last Thursday. Patient is presently receiving IV fluids Decadron vitamin cocktail and Lovenox. Patient is presently on 3 L of oxygen saturating well. 06/19/2020 patient is not requiring oxygen today although patient is having nausea and vomiting which were discontinued on nonsteroidal anti-P patient will be started on Protonix instead of and the possibility will be discharged tomorrow patient was started on Remdesivir. Constitutional: Denied any fatigue denied any fever. Cardio vascular: denied any chest pain, palpitations Gastrointestinal as mentioned in HPI Pulmonary: Denied any shortness of breath cough Neurologic denied any new focal deficits All inpatient medications were reviewed and appropriate changes in these medications as dictated in the interval history and assessment and plan. Objective - Vital Signs Vital signs: Vital Signs Temp 97.6 F 06/19/20 07:38 Pulse 46 L 06/19/20 07:38 Resp 20 06/19/20 07:38 BP 157/79 06/19/20 07:38 Pulse Ox 95 06/19/20 08:35 Intake & Output 06/18/20 06/19/20 06/19/20 18:59 06:59 18:59 Intake Total 1350 800 480 Output Total 100 Balance 1350 700 480 Weight 67.132 kg 67.132 kg Intake: Intake, IV Titration 1350 800 Amount Remdesivir 100 mg In 250 Sodium Chloride 0.9% 250 ml @ 250 mls/hr IVPB DAILY@1100 [facility] Rx#: [id number] Sodium Chloride 0.9% 1, 1100 800 000 ml @ 100 mls/hr IV . Q10H [facility] Rx#:[id number] Oral 480 Output: Emesis 100 - Exam PHYSICAL EXAMINATION: GENERAL: The patient is alert and oriented x3, not in any acute distress. Well developed, well nourished. HEENT: Pupils are round and equally reacting to light. EOMI. No scleral icterus. No conjunctival pallor. Normocephalic, atraumatic. No pharyngeal erythema. No thyromegaly. CARDIOVASCULAR: S1 and S2 present. No murmurs, rubs, or gallops. PULMONARY: Chest is clear to auscultation, no wheezing or crackles. ABDOMEN: Soft, nontender, nondistended, normoactive bowel sounds. No palpable organomegaly. MUSCULOSKELETAL: No joint swelling or deformity. EXTREMITIES: No cyanosis, clubbing, or pedal edema. NEUROLOGICAL: Gross neurological examination did not reveal any focal deficits. SKIN: No rashes. - Labs CBC & Chem 7: 06/19/20 06:35 06/19/20 06:35 Labs: Abnormal Lab Results - Last 24 Hours (Table) 06/19/20 06/19/20 Range/Units 06:35 06:35 RBC 3.78 L (3.80-5.40) m/uL Hct 33.0 L (34.0-46.0) % Plt Count 138 L (150-450) k/uL Chloride 109 H (98-107) mmol/L Glucose 135 H (74-99) mg/dL Calcium 7.9 L (8.4-10.2) mg/dL AST 39 H (14-36) U/L Alkaline Phosphatase 37 L (38-126) U/L Total Protein 5.4 L (6.3-8.2) g/dL Albumin 2.9 L (3.5-5.0) g/dL Microbiology - Last 24 Hours (Table) 06/18/20 00:39 Blood Culture - Preliminary Blood No Growth after 24 hours Assessment and Plan Plan: Acute hypoxic respiratory failure: Secondary to Covid pneumonia: Patient will continued on Decadron, patient is on Remdesivir. Patient is also on Covid vitamin and Lovenox. -Nausea vomiting secondary to Covid 19 Mild sinus bradycardia secondary to Remdesivir -Gastroesophageal reflux disease DVT prophylaxis: With Lovenox -
[2020-06-19] MEDS: lisinopriL 10 MG TAB PO SCH (22:32)
[2020-06-20] MEDS: SODIUM CHLORIDE 0.9% 1,000 ML IV SCH ×2 (02:39→12:20)
[2020-06-20] MEDS: ONDANSETRON 4 MG/2 ML VIAL IVP PRN (05:17)
[2020-06-20] MEDS: ALBUTEROL HFA INHALER INHALATION PRN (07:26)
[2020-06-20] MEDS: DEXAMETHASONE SOD PHOSPHATE 10 MG/ML 1 ML VIAL IV SCH (07:55)
[2020-06-20] MEDS: ENOXAPARIN 40 MG/0.4 ML SYRINGE SQ SCH (07:56)
[2020-06-20] MEDS: lisinopriL 10 MG TAB PO SCH (07:56)
[2020-06-20] MEDS: ZINC SULFATE 220 MG CAP PO SCH (07:56)
[2020-06-20] MEDS: ASCORBIC ACID 500 MG TAB PO SCH (07:56)
[2020-06-20] MEDS: CHOLECALCIFEROL 25 MCG (1000 IU) TABLET PO SCH (07:56)
[2020-06-20] MEDS ORDERED: PANTOPRAZOLE 40 MG/10 ML VIAL IVP SCH (09:00)
[2020-06-20] MEDS: REMDESIVIR 100 MG in SODIUM CHLORIDE 0.9% 250 ML IVPB SCH (10:13)
[2020-06-20 11:39] VITALS: RESP 13
--- NOTE | 2020-06-20 14:53 | P.DS ---
Providers Date of admission: 06/18/20 00:20 Attending physician: Krystle Prieto Consults: 06/18/20 00:19 Consult Physician Routine Consulting Provider: Brandon Bone Consult Reason/Comments: covid Do you want consulting provider notified?: Yes Primary care physician: Ephraim Diaz [facility] Course: 62-year-old female came in with the complaints of worsening shortness of breath and nonproductive cough. Patient was recently diagnosed with the Coumadin 19 received Bam infusion in spite of which patient's symptoms continued to get worse. Patient received Bam infusion last Thursday. Patient is presently receiving IV fluids Decadron vitamin cocktail and Lovenox. Patient is presently on 3 L of oxygen saturating well. 06/19/2020 patient is not requiring oxygen today although patient is having nausea and vomiting which were discontinued on nonsteroidal anti-P patient will be started on Protonix instead of and the possibility will be discharged tomorrow patient was started on Remdesivir. 06/20/2020 Patient is not requiring oxygen at this time had a home O2 evaluation will not require any oxygen saturating at 96% on upon exertion. Patient is able to tolerate diet well. Patient also is a bit of an anxious person. PHYSICAL EXAMINATION: GENERAL: The patient is alert and oriented x3, not in any acute distress. Well developed, well nourished. HEENT: Pupils are round and equally reacting to light. EOMI. No scleral icterus. No conjunctival pallor. Normocephalic, atraumatic. No pharyngeal erythema. No thyromegaly. CARDIOVASCULAR: S1 and S2 present. No murmurs, rubs, or gallops. PULMONARY: Chest is clear to auscultation, no wheezing or crackles. ABDOMEN: Soft, nontender, nondistended, normoactive bowel sounds. No palpable organomegaly. MUSCULOSKELETAL: No joint swelling or deformity. EXTREMITIES: No cyanosis, clubbing, or pedal edema. NEUROLOGICAL: Gross neurological examination did not reveal any focal deficits. SKIN: No rashes. Assessment and Plan Plan: Acute hypoxic respiratory failure: Secondary to Covid pneumonia: Patient will continued on Decadron, patient was on Remdesivir. Patient was also on Covid vitamin and Lovenox. Patient is being discharged today on 5 more days of Decadron. Patient is presently not requiring any oxygen -Nausea vomiting secondary to Covid 19 which resolved at this time Mild sinus bradycardia secondary to Remdesivir -Gastroesophageal reflux disease DVT prophylaxis: With Lovenox - Patient Condition at Discharge: Fair Plan - Discharge Summary Discharge Rx Participant: No New Discharge Prescriptions: New Pantoprazole Sodium [Protonix] 20 mg PO AC-BID #30 tablet. lisinopriL [Zestril] 10 mg PO DAILY #30 tab Ondansetron Odt [Zofran Odt] 4 mg PO Q8HR PRN #20 tab PRN Reason: Nausea And Vomiting Dexamethasone [Decadron] 4 mg PO DAILY #5 tablet Zinc Sulfate [Orazinc] 220 mg PO DAILY #30 cap Ascorbic Acid [Vitamin C] 1,000 mg PO DAILY #30 tab Cholecalciferol [Vitamin D3 (25 Mcg = 1000 Iu)] 100 mcg PO DAILY #30 tablet Continue Albuterol Sulfate [Albuterol Sulfate Hfa] 2 puff PO RT-Q4H PRN PRN Reason: Shortness Of Breath Discharge Medication List Albuterol Sulfate [Albuterol Sulfate Hfa] 2 puff PO RT-Q4H PRN 06/17/20 [History] Ascorbic Acid [Vitamin C] 1,000 mg PO DAILY #30 tab 06/20/20 [Rx] Cholecalciferol [Vitamin D3 (25 Mcg = 1000 Iu)] 100 mcg PO DAILY #30 tablet 06/20/20 [Rx] Dexamethasone [Decadron] 4 mg PO DAILY #5 tablet 06/20/20 [Rx] Ondansetron Odt [Zofran Odt] 4 mg PO Q8HR PRN #20 tab 06/20/20 [Rx] Pantoprazole Sodium [Protonix] 20 mg PO AC-BID #30 tablet. 06/20/20 [Rx] Zinc Sulfate [Orazinc] 220 mg PO DAILY #30 cap 06/20/20 [Rx] lisinopriL [Zestril] 10 mg PO DAILY #30 tab 06/20/20 [Rx] Follow up Appointment(s)/Referral(s): Jai Ye MD [Primary Care Provider] - 3 Days Activity/Diet/Wound Care/Special Instructions: Pt would like pneumonia and influenza vaccines prior to discharge. Discharge Disposition: HOME SELF-CARE
[2020-06-20 15:00] VITALS: BP 177/71; PULSE 53; TEMP 98.8
== END 2020-06-20 15:45 | disposition home or self-care (01) | DRG 177 ==
LOC: EC 22:03 → 4SSUR 06-18 00:20 → 1SOBS 06-18 15:48 → 4SSUR 06-19 16:32
PROVIDERS: ADMIT Hospitalist; ATTEND Hospitalist
PROC: XW033E5 Introduction of Remdesivir Anti-infective into Peripheral Vein, Percutaneous Approach, New Technology Group 5 (ICD-10-PCS; principal; 2020-06-18)
DX: U07.1 COVID-19 (principal); J12.82 Pneumonia due to coronavirus disease 2019; J96.01 Acute respiratory failure with hypoxia; J44.0 Chronic obstructive pulmonary disease with (acute) lower respiratory infection; Z88.1 Allergy status to other antibiotic agents; Z88.5 Allergy status to narcotic agent; K21.9 Gastro-esophageal reflux disease without esophagitis; R00.1 Bradycardia, unspecified; I10 Essential (primary) hypertension; E78.5 Hyperlipidemia, unspecified; G89.29 Other chronic pain; M54.41 Lumbago with sciatica, right side; M19.90 Unspecified osteoarthritis, unspecified site; Z87.440 Personal history of urinary (tract) infections; Z90.79 Acquired absence of other genital organ(s); Z87.19 Personal history of other diseases of the digestive system; Z98.891 History of uterine scar from previous surgery; Z90.710 Acquired absence of both cervix and uterus; Z87.42 Personal history of other diseases of the female genital tract; Z87.09 Personal history of other diseases of the respiratory system; Z87.81 Personal history of (healed) traumatic fracture; Z86.2 Personal history of diseases of the blood and blood-forming organs and certain disorders involving the immune mechanism; Z98.890 Other specified postprocedural states; Z83.3 Family history of diabetes mellitus; Z80.1 Family history of malignant neoplasm of trachea, bronchus and lung; Z80.8 Family history of malignant neoplasm of other organs or systems; Z82.5 Family history of asthma and other chronic lower respiratory diseases; Z84.1 Family history of disorders of kidney and ureter
CPT/HCPCS: 71045; 80053; 83605; 83615; 83735; 84100; 85025; 85379; 85610; 85730; 86140; 87040; 93005; 94640; 94760; 96365; 96366; 96372; 96375; 96376; 99285

== ENCOUNTER → 2020-11-02 | Outpatient (CLI) | payer MEDICARE ==
[2020-11-02 14:50] LABS: Basophils # (A) 0.03 X 10*3/uL (0.00-0.10); Basophils % (A) 0.6 %; Eosinophils # (A) 0.27 X 10*3/uL (0.04-0.35); HCT 40.8 % (37.2-46.3); HGB 12.8 g/dL (12.0-15.0); Lymphocytes # (A) 1.53 X 10*3/uL (0.90-5.00); Lymphocytes % (A) 28.5 %; MCH 28.4 pg (27.0-32.0); MCHC 31.4 g/dL (32.0-37.0); MCV 90.5 fL (80.0-97.0); Mean Platelet Volume 12.1 fL (9.5-12.2); Monocytes % (A) 7.4 %; Neutrophils # (A) 3.12 X 10*3/uL (1.80-7.70); Neutrophils % (A) 58.1 %; Platelet Count 237 X 10*3/uL (140-440); RBC 4.51 X 10*6/uL (4.10-5.20); RDW 13.5 % (11.5-14.5); WBC 5.37 X 10*3/uL (4.50-10.00)
[2020-11-02 22:14] LABS: Albumin 4.2 g/dL (3.80-4.90); Albumin/Globulin Ratio 1.56 (1.60-3.17); Anion Gap 9.2 mmol/L (4.00-12.00); BUN/Creat Ratio 16.25 Ratio (12.00-20.00); Calcium 9.1 mg/dL (8.7-10.3); Carbon Dioxide 25.8 mmol/L (21.6-31.8); Chol/HDL Ratio 3.98; Globulin 2.7 g/dL (1.6-3.3); LDL Cholesterol,Calculated 151.4 mg/dL (0.0-131.0); Non-African American GFR(CKD) 76.8 (60.0-200.0); Potassium 4.5 mmol/L (3.5-5.5); Total Bilirubin 0.7 mg/dL (0.3-1.2); Total Protein 6.9 g/dL (6.2-8.2); VLDL Calculation 21.6 mg/dL (5.00-40.00)
[2020-11-02 22:22] LABS: T4, Free (Free Thyroxine) 0.9 ng/dL (0.80-1.80)
== END | disposition home or self-care (01) ==
LOC: LABWHC1 10:22
PROVIDERS: ATTEND Internal Medicine
DX: I10 Essential (primary) hypertension (principal); E66.9 Obesity, unspecified; J44.9 Chronic obstructive pulmonary disease, unspecified; R06.00 Dyspnea, unspecified
CPT/HCPCS: 36415; 80053; 80061; 84439; 84443; 85025; 86769

== ENCOUNTER 2020-12-18 11:05 | Emergency (ER) | payer MEDICARE ==
[2020-12-18 11:16] VITALS: TEMP 99
--- NOTE | 2020-12-18 12:04 | XR ---
EXAMINATION TYPE: XR chest 2V DATE OF EXAM: 12/18/2020 COMPARISON: Chest x-ray 06/17/2020 HISTORY: Cough TECHNIQUE: Frontal and lateral views of the chest are obtained. FINDINGS: There is no focal air space opacity, pleural effusion, or pneumothorax seen. The cardiac silhouette size is within normal limits. The osseous structures are intact. Some strand-like densit ies persist in the central lungs but are improved. IMPRESSION: Persistent interstitial densities are noted. There is improvement in aeration as compare d to prior exam.
[2020-12-18] MEDS ORDERED: IPRATROPIUM-ALBUTEROL 3 ML NEB INHALATION STA (13:37)
--- NOTE | 2020-12-18 13:41 | ED ---
URI HPI - General Chief Complaint: Upper Respiratory Infection Stated Complaint: cough Time Seen by Provider: 12/18/20 12:30 Source: patient, RN notes reviewed Mode of arrival: ambulatory Limitations: no limitations - History of Present Illness Initial Comments: This a 65-year-old female presents emergency Department with chief complaint of cough congestion. Patient states she has COPD. Patient said no reported fever but states she is prone to having pneumonia. Patient denies any sick contacts with COVID-19. She states her cough is mildly productive, noted wheezing. She states she is out of her medication at home for her treatments. No [id number] cough and cold medications. - Related Data Home Medications Medication Instructions Recorded Confirmed Albuterol Sulfate [Albuterol 2 puff PO RT-Q4H PRN 06/17/20 06/17/20 Sulfate Hfa] Previous Rx's Medication Instructions Recorded Ascorbic Acid [Vitamin C] 1,000 mg PO DAILY #30 tab 06/20/20 Cholecalciferol [Vitamin D3 (25 100 mcg PO DAILY #30 tablet 06/20/20 Mcg = 1000 Iu)] Dexamethasone [Decadron] 4 mg PO DAILY #5 tablet 06/20/20 Ondansetron Odt [Zofran Odt] 4 mg PO Q8HR PRN #20 tab 06/20/20 Pantoprazole Sodium [Protonix] 20 mg PO AC-BID #30 tablet. 06/20/20 Zinc Sulfate [Orazinc] 220 mg PO DAILY #30 cap 06/20/20 lisinopriL [Zestril] 10 mg PO DAILY #30 tab 06/20/20 Amoxicillin/Potassium Clav 1 tab PO Q12HR #20 tab 12/18/20 [Augmentin 875-125 Tablet] Benzonatate [Tessalon Perles] 100 mg PO TID PRN #15 cap 12/18/20 Ipratropium-Albuterol Nebulize 3 ml INHALATION QID #25 each 12/18/20 [Duoneb 0.5 mg-3 mg/3 ml Soln] predniSONE 50 mg PO DAILY #5 tab 12/18/20 Allergies Allergy/AdvReac Type Severity Reaction Status Date / Time codeine AdvReac Itching Verified 12/18/20 11:17 erythromycin base AdvReac STOMACH Verified 12/18/20 11:17 PAIN Tetracyclines AdvReac Abdominal Verified 12/18/20 11:17 Pain Review of Systems ROS Statement: Those systems with pertinent positive or pertinent negative responses have been documented in the HPI. ROS Other: All systems not noted in ROS Statement are negative. Past Medical History Past Medical History: COPD, GERD/Reflux, Hypertension, Osteoarthritis (OA) Additional Past Medical History / Comment(s): Recent tx of UTI in Mar 2019,steroids Mar 2019,anemia, vertigo, chronic back pain,SOB-states "hx of lung surgery with scraping" History of Any Multi-Drug Resistant Organisms: None Reported Past Surgical History: Appendectomy, Section, Cholecystectomy, Hysterectomy, Orthopedic Surgery Additional Past Surgical History / Comment(s): bronchoscopy,states "surgery by Dr Wallace-scraped lungs" Past Anesthesia/Blood Transfusion Reactions: No Reported Reaction Past Psychological History: No Psychological Hx Reported Smoking Status: Never smoker Past Alcohol Use History: None Reported Past Drug Use History: None Reported - Past Family History Father Family Medical History: Cancer, Diabetes Mellitus Additional Family Medical History / Comment(s): lung cancer and bone cancer Mother Additional Family Medical History / Comment(s): emphysema Son(s) Family Medical History: Diabetes Mellitus, Dialysis Additional Family Medical History / Comment(s): pacemaker, 2017 General Exam Limitations: no limitations General appearance: alert, in no apparent distress Head exam: Present: atraumatic, normocephalic, normal inspection Eye exam: Present: normal appearance, PERRL, EOMI. Absent: scleral icterus, conjunctival injection, periorbital swelling ENT exam: Present: normal exam, normal oropharynx, mucous membranes moist Neck exam: Present: normal inspection, full ROM. Absent: tenderness, meningismus, lymphadenopathy Respiratory exam: Present: wheezes, rhonchi. Absent: normal lung sounds bilaterally, respiratory distress, rales, stridor Cardiovascular Exam: Present: regular rate, normal rhythm, normal heart sounds. Absent: systolic murmur, diastolic murmur, rubs, gallop, clicks Neurological exam: Present: alert Course Vital Signs 12/18/20 12/18/20 11:14 14:44 Temperature 99.0 F Pulse Rate 77 60 Respiratory 19 Rate Blood Pressure 140/95 O2 Sat by Pulse 91 L Oximetry Medical Decision Making - Medical Decision Making 65-year-old presents for cough congestion. X-rays unremarkable COVID-19 negative. Patient did have some mild wheezing with her COPD. She was given DuoNeb treatment. She has improved aeration, mild residual wheezing. Patient discharged on prednisone, azithromycin, DuoNeb treatments, Tessalon Perles. - Lab Data Lab Results 12/18/20 Range/Units 11:19 Coronavirus (PCR) Not Detected (Not Detectd) Disposition Clinical Impression: Acute upper respiratory infection, COPD (chronic obstructive pulmonary disease) Disposition: HOME SELF-CARE Condition: Stable Instructions (If sedation given, give patient instructions): Upper Respiratory Infection (ED) Additional Instructions: Please return to the Emergency Department if symptoms worsen or any other concerns. Prescriptions: Amoxicillin/Potassium Clav [Augmentin 875-125 Tablet] 1 tab PO Q12HR #20 tab Ipratropium-Albuterol Nebulize [Duoneb 0.5 mg-3 mg/3 ml Soln] 3 ml INHALATION QI D #25 each predniSONE 50 mg PO DAILY #5 tab Benzonatate [Tessalon Perles] 100 mg PO TID PRN #15 cap PRN Reason: Cough Is patient prescribed a controlled substance at d/c from ED?: No Referrals: Jai Ye MD [Primary Care Provider] - 1-2 days Time of Disposition: 14:58
[2020-12-18] MEDS ORDERED: ACETAMINOPHEN TAB 325 MG TAB PO STA (14:17)
[2020-12-18] MEDS ORDERED: methylPREDNISolone SOD SUCCI 125 MG/2 ML VIAL IM ONE (14:56)
[2020-12-18 15:05] VITALS: BP 147/73; PULSE 72; RESP 18
== END 2020-12-18 15:47 | disposition home or self-care (01) ==
LOC: EC 11:05
DX: J06.9 Acute upper respiratory infection, unspecified (principal); J44.9 Chronic obstructive pulmonary disease, unspecified; I10 Essential (primary) hypertension; Z88.5 Allergy status to narcotic agent; Z88.1 Allergy status to other antibiotic agents; Z20.822 Contact with and (suspected) exposure to COVID-19
CPT/HCPCS: 94640; 87635; 71046; 99285; 96372; J2930

== ENCOUNTER 2021-07-15 09:53 | Emergency (ER) | payer MEDICARE ==
--- NOTE | 2021-07-15 13:17 | ED ---
General Adult HPI - General Chief complaint: Shortness of Breath Stated complaint: Covid +,Cough Time Seen by Provider: 07/15/21 12:53 Source: patient, RN notes reviewed Mode of arrival: ambulatory Limitations: no limitations - History of Present Illness Initial comments: Patient is a pleasant 65-year-old female presenting to the emergency department with concern for COVID-19 infection. Onset of symptoms was 3 days ago. Patient does have cough. Patient has COPD with mildly increased shortness of breath. Patient has had some chills. Patient did take positive COVID-19 test today. Patient also had family member with positive COVID-19 test. Patient feels symptoms may be somewhat improving. Patient has only received one of her vaccination injections for COVID-19 - Related Data Home Medications Medication Instructions Recorded Confirmed Albuterol Sulfate [Albuterol 2 puff PO RT-Q4H PRN 06/17/20 06/17/20 Sulfate Hfa] Previous Rx's Medication Instructions Recorded Ascorbic Acid [Vitamin C] 1,000 mg PO DAILY #30 tab 06/20/20 Cholecalciferol [Vitamin D3 (25 100 mcg PO DAILY #30 tablet 06/20/20 Mcg = 1000 Iu)] Dexamethasone [Decadron] 4 mg PO DAILY #5 tablet 06/20/20 Ondansetron Odt [Zofran Odt] 4 mg PO Q8HR PRN #20 tab 06/20/20 Pantoprazole Sodium [Protonix] 20 mg PO AC-BID #30 tablet. 06/20/20 Zinc Sulfate [Orazinc] 220 mg PO DAILY #30 cap 06/20/20 lisinopriL [Zestril] 10 mg PO DAILY #30 tab 06/20/20 Amoxicillin/Potassium Clav 1 tab PO Q12HR #20 tab 12/18/20 [Augmentin 875-125 Tablet] Benzonatate [Tessalon Perles] 100 mg PO TID PRN #15 cap 12/18/20 Ipratropium-Albuterol Nebulize 3 ml INHALATION QID #25 each 12/18/20 [Duoneb 0.5 mg-3 mg/3 ml Soln] predniSONE 50 mg PO DAILY #5 tab 12/18/20 Allergies Allergy/AdvReac Type Severity Reaction Status Date / Time codeine AdvReac Itching Verified 12/18/20 11:17 erythromycin base AdvReac STOMACH Verified 12/18/20 11:17 PAIN Tetracyclines AdvReac Abdominal Verified 12/18/20 11:17 Pain Review of Systems ROS Statement: Those systems with pertinent positive or pertinent negative responses have been documented in the HPI. ROS Other: All systems not noted in ROS Statement are negative. Constitutional: Reports: as per HPI, chills Eyes: Denies: eye pain ENT: Denies: ear pain Respiratory: Reports: as per HPI, cough Cardiovascular: Denies: chest pain Endocrine: Reports: fatigue Gastrointestinal: Denies: abdominal pain, vomiting Genitourinary: Denies: dysuria Musculoskeletal: Denies: back pain Skin: Denies: rash Neurological: Denies: weakness Past Medical History Past Medical History: COPD, GERD/Reflux, Hypertension, Osteoarthritis (OA) Additional Past Medical History / Comment(s): Recent tx of UTI in Mar 2019,steroids Mar 2019,anemia, vertigo, chronic back pain,SOB-states "hx of lung surgery with scraping" History of Any Multi-Drug Resistant Organisms: None Reported Past Surgical History: Appendectomy, Section, Cholecystectomy, Hysterectomy, Orthopedic Surgery Additional Past Surgical History / Comment(s): bronchoscopy,states "surgery by Dr Wallace-scraped lungs" Past Anesthesia/Blood Transfusion Reactions: No Reported Reaction Past Psychological History: No Psychological Hx Reported Smoking Status: Never smoker Past Alcohol Use History: None Reported Past Drug Use History: None Reported - Past Family History Father Family Medical History: Cancer, Diabetes Mellitus Additional Family Medical History / Comment(s): lung cancer and bone cancer Mother Additional Family Medical History / Comment(s): emphysema Son(s) Family Medical History: Diabetes Mellitus, Dialysis Additional Family Medical History / Comment(s): pacemaker, 2017 General Exam Limitations: no limitations General appearance: alert, in no apparent distress Head exam: Present: normocephalic Eye exam: Present: normal appearance Neck exam: Present: normal inspection Respiratory exam: Present: normal lung sounds bilaterally. Absent: respiratory distress, wheezes Cardiovascular Exam: Present: regular rate, normal rhythm GI/Abdominal exam: Present: soft. Absent: tenderness Extremities exam: Present: normal inspection. Absent: pedal edema, calf tenderness Neurological exam: Present: alert Psychiatric exam: Present: normal affect, normal mood Skin exam: Present: normal color Course Vital Signs 07/15/21 13:10 Temperature 98.1 F Pulse Rate 72 Respiratory 18 Rate Blood Pressure 141/91 O2 Sat by Pulse 96 Oximetry Medical Decision Making - Medical Decision Making Patient has a positive at home as well as a family member. Patient does meet criteria for paxlovid Disposition Clinical Impression: COVID-19 Disposition: HOME SELF-CARE Condition: Stable Instructions (If sedation given, give patient instructions): COPD (Chronic Obstructive Pulmonary Disease) (ED), COVID-19 (Coronavirus Disease 2019) (ED) Additional Instructions: Prescription has been sent to [facility] pharmacy. This is the only place it can be filled. Please follow-up with your doctor in the next day or 2 for recheck. Return for difficulty in breathing, fevers, worsening or changing symptoms or any other concerns. Is patient prescribed a controlled substance at d/c from ED?: No Referrals: Jai Ye MD [Primary Care Provider] - 1-2 days Time of Disposition: 13:20
[2021-07-15 13:23] VITALS: BP 141/91; PULSE 72; RESP 18; TEMP 98.1
[2021-07-15] MEDS ORDERED: ACETAMINOPHEN TAB 325 MG TAB PO STA (13:51)
== END 2021-07-15 14:06 | disposition home or self-care (01) ==
LOC: EC 09:53
DX: U07.1 COVID-19 (principal); Z88.5 Allergy status to narcotic agent; Z88.1 Allergy status to other antibiotic agents
CPT/HCPCS: 99284

== ENCOUNTER → 2022-07-10 | Outpatient (CLI) | payer MEDICARE, OTHER ==
[2022-07-10 15:53] LABS: ALT 17 U/L (8-44); AST 16 U/L (13-35); African American GFR (CKD) 85.8 (60.0-200.0); BUN/Creat Ratio 13.78 Ratio (12.00-20.00); Blood Urea Nitrogen 11.3 mg/dL (9.0-27.0); Calcium 9.7 mg/dL (8.7-10.3); Carbon Dioxide 28.6 mmol/L (20.0-27.5); Chloride 104 mmol/L (96-109); Glucose 146 mg/dL (70-110); Potassium 4.4 mmol/L (3.5-5.5); Sodium 142 mmol/L (135-145)
[2022-07-10 15:54] LABS: Chol/HDL Ratio 5.26 Ratio; LDL Cholesterol,Calculated 166.3 mg/dL (0.0-131.0)
[2022-07-10 16:14] LABS: HCT 44.1 % (37.2-46.3); HGB 13.5 g/dL (12.0-15.0); MCHC 30.6 g/dL (32.0-37.0); MCV 91.3 fL (80.0-97.0); Mean Platelet Volume 12.2 fL (9.5-12.2); NRBC Per 100 WBC 0 /100 WBCS (0.0-0.0); Platelet Count 261 X 10*3/uL (140-440); RBC 4.83 X 10*6/uL (4.10-5.20); RDW 14.1 % (11.5-14.5); WBC 7.18 X 10*3/uL (4.50-10.00)
== END | disposition home or self-care (01) ==
LOC: LABWHC1 09:33
PROVIDERS: ATTEND Internal Medicine Cardiovascular Disease
DX: E78.2 Mixed hyperlipidemia (principal); R07.2 Precordial pain
CPT/HCPCS: 36415; 80048; 80061; 84443; 84450; 84460; 85027

== ENCOUNTER 2023-05-27 13:18 | Emergency (ER) | payer MEDICARE ==
[2023-05-27 13:57] VITALS: TEMP 98.2
--- NOTE | 2023-05-27 14:02 | ED ---
General Adult HPI - General Chief complaint: Chest Pain Stated complaint: L Abd Pain after receiving heimlich maneuver today Time Seen by Provider: 05/27/23 13:59 Source: patient, RN notes reviewed Mode of arrival: ambulatory Limitations: no limitations - History of Present Illness Initial comments: This is a 66 year old female who presents to the emergency department for pain over the left rib cage. Patient choked on water at lunch and a bystander gave her the Heimlich maneuver. She has since had pain over the left rib cage. Pain is worse when she tries to breathe. States that she heard one of her ribs pop in the process. Patient also states that her PCP is no longer in practice and she has been without her Lisinopril for a month and inquired as to if this could be refilled. She is supposed to be on 10mg. Denies any headaches, chest pain, or shortness of breath. - Related Data Home Medications Medication Instructions Recorded Confirmed Albuterol Sulfate [Albuterol 2 puff PO RT-Q4H PRN 06/17/20 06/17/20 Sulfate Hfa] Previous Rx's Medication Instructions Recorded Ascorbic Acid [Vitamin C] 1,000 mg PO DAILY #30 tab 06/20/20 Cholecalciferol [Vitamin D3 (25 100 mcg PO DAILY #30 tablet 06/20/20 Mcg = 1000 Iu)] Ondansetron Odt [Zofran Odt] 4 mg PO Q8HR PRN #20 tab 06/20/20 Pantoprazole Sodium [Protonix] 20 mg PO AC-BID #30 tablet. 06/20/20 Zinc Sulfate [Orazinc] 220 mg PO DAILY #30 cap 06/20/20 dexAMETHasone [Decadron] 4 mg PO DAILY #5 tablet 06/20/20 lisinopriL [Zestril] 10 mg PO DAILY #30 tab 06/20/20 Amoxicillin/Potassium Clav 1 tab PO Q12HR #20 tab 12/18/20 [Augmentin 875-125 Tablet] Benzonatate [Tessalon Perles] 100 mg PO TID PRN #15 cap 12/18/20 Ipratropium-Albuterol Nebulize 3 ml INHALATION QID #25 each 12/18/20 [Duoneb 0.5 mg-3 mg/3 ml Soln] predniSONE 50 mg PO DAILY #5 tab 12/18/20 Ibuprofen [Motrin] 800 mg PO Q8H PRN #30 tab 05/27/23 Lidocaine 5% Patch [Lidoderm 5% 1 patch TOPICAL DAILY PRN #30 patch 05/27/23 Patch] lisinopriL [Zestril] 10 mg PO DAILY #30 tab 05/27/23 methocarbamoL [Robaxin-750] 1,500 mg PO TID PRN #30 tab 05/27/23 Allergies Allergy/AdvReac Type Severity Reaction Status Date / Time codeine AdvReac Itching Verified 05/27/23 13:55 erythromycin base AdvReac STOMACH Verified 05/27/23 13:55 PAIN Tetracyclines AdvReac Abdominal Verified 05/27/23 13:55 Pain Review of Systems ROS Statement: Those systems with pertinent positive or pertinent negative responses have been documented in the HPI. ROS Other: All systems not noted in ROS Statement are negative. Past Medical History Past Medical History: COPD, GERD/Reflux, Hypertension, Osteoarthritis (OA) Additional Past Medical History / Comment(s): Recent tx of UTI in Mar 2019,steroids Mar 2019,anemia, vertigo, chronic back pain,SOB-states "hx of lung surgery with scraping" History of Any Multi-Drug Resistant Organisms: None Reported Past Surgical History: Appendectomy, Section, Cholecystectomy, Hysterectomy, Orthopedic Surgery Additional Past Surgical History / Comment(s): bronchoscopy,states "surgery by Dr Wallace-scraped lungs" Past Anesthesia/Blood Transfusion Reactions: No Reported Reaction Past Psychological History: No Psychological Hx Reported Smoking Status: Never smoker Past Alcohol Use History: None Reported Past Drug Use History: None Reported - Past Family History Father Family Medical History: Cancer, Diabetes Mellitus Additional Family Medical History / Comment(s): lung cancer and bone cancer Mother Additional Family Medical History / Comment(s): emphysema Son(s) Family Medical History: Diabetes Mellitus, Dialysis Additional Family Medical History / Comment(s): pacemaker, 2017 General Exam - General Exam Comments Initial Comments: Visual Physical Exam Vital signs reviewed General: Well-appearing, nontoxic, no acute distress. Head: Normocephalic, atraumatic Eyes: PERRLA, EOMI ENT: Airway patent Chest: Nonlabored breathing Skin: No visual rash, normal skin tone Neuro: Alert and oriented 3 Musculoskeletal: No gross abnormalities Limitations: no limitations General appearance: alert, in no apparent distress Head exam: Present: atraumatic, normocephalic, normal inspection Respiratory exam: Present: normal lung sounds bilaterally, chest wall tenderness (Left lower rib cage). Absent: respiratory distress, wheezes, rales, rhonchi, stridor Cardiovascular Exam: Present: regular rate, normal rhythm, normal heart sounds. Absent: systolic murmur, diastolic murmur, rubs, gallop, clicks GI/Abdominal exam: Present: soft, normal bowel sounds. Absent: distended, tenderness, guarding, rebound, rigid Neurological exam: Present: alert, oriented X3, CN II-XII intact Psychiatric exam: Present: normal affect, normal mood Skin exam: Present: warm, dry, intact, normal color. Absent: rash Course Vital Signs 05/27/23 05/27/23 13:52 14:52 Temperature 98.2 F Pulse Rate 74 66 Respiratory 16 18 Rate Blood Pressure 234/84 185/97 O2 Sat by Pulse 97 100 Oximetry Medical Decision Making - Medical Decision Making This is a 67-year-old female who presents to the emergency department for pain over the left rib cage. Was pt. sent in by a medical professional or institution? @ -No Did you speak to anyone other than the patient for history? @ -No Did you review nursing and triage notes? @ -Yes, and I agree, it is accurate with regards to the patient's symptoms. Were old charts reviewed? @ -No Differential Diagnosis? @ -Differential Rib Pain: Contusion, rib fracture, pneumothorax, pneumonia, this is not meant to be an all-inclusive list. EKG interpreted by me (3pts min.)? @ -Not obtained X-rays interpreted by me (1pt min.)? @ -X-ray of the left rib cage and PA chest obtained. My interpretation identifies no acute rib fractures. CT interpreted by me (1pt min.)? @ -Not obtained U/S interpreted by me (1pt. min.)? @ -Not obtained What testing was considered but not performed? (CT, X-rays, U/S, labs)? Why? @ -None What meds were considered but not given? Why? @ -None Did you discuss the management of the patient with other professionals? @ -No Did you reconcile home meds? @ -No Was smoking cessation discussed for >3mins.? @ -No Was critical care preformed (if so, how long)? @ -No Were there social determinants of health that impacted care today? How? (Homelessness, low income, unemployed, alcoholism, drug addiction, transportation, low edu. Level, literacy, decrease access to med. care, shelter, rehab)? @ -No Was there de-escalation of care discussed even if they declined? (Discuss DNR or withdrawal of care, Hospice)? @ -No What co-morbidities impacted this encounter? (DM, HTN, Smoking, COPD, CAD, Cancer, CVA, Hep., AIDS, mental health diagnosis, sleep apnea, morbid obesity)? @ -None Was patient admitted / discharged? @ -Discharged. X-ray of the chest and left rib cage obtained demonstrating no acute fracture. Advised the patient that this may be a contusion, however there is also possibility of a hairline fracture. Treatment will be the same regardless. Symptoms well-controlled in the emergency department. Prescription for ibuprofen, Robaxin, and lidocaine patches provided with dosing instructions reviewed. Her PCP is also no longer in practice, and she was without her lisinopril. Refill on this was provided as well. Patient instructed to take several deep breaths an hour to reduce the risk of developing a secondary pneumonia. She was otherwise discharged home in stable condition. Undiagnosed new problem with uncertain prognosis? @ -None Drug Therapy requiring intensive monitoring for toxicity (Heparin, Nitro, Insulin, Cardizem)? @ -None Were any procedures done? @ -None Diagnosis/symptom? @ -Rib contusion Acute, or Chronic, or Acute on Chronic? @ -Acute Uncomplicated (without systemic symptoms) or Complicated (systemic symptoms)? @ -Uncomplicated Side effects of treatment? @ -None Exacerbation, Progression, or Severe Exacerbation] @ -Not applicable Poses a threat to life or bodily function? @ -No Return precautions reviewed in depth, the patient is instructed to return to the emergency department with any new, worsening, or concerning symptoms. Patient verbalized understanding. This case was discussed in detail with the attending ED physician, Dr. Villagomez. Presentation, findings, and treatment plan discussed in detail as well. - Radiology Data Radiology results: report reviewed, image reviewed Disposition Clinical Impression: Contusion of rib on left side, Hypertension Disposition: HOME SELF-CARE Instructions (If sedation given, give patient instructions): Rib Contusion (ED) Additional Instructions: Return to the emergency department with any new, worsening, or concerning symptoms. Alternate with ibuprofen and Tylenol as needed for pain relief. You can take the Robaxin as 1 to 2 tablets up to 3-4 times daily. Be aware that this may make you drowsy. You can also apply the lidocaine patches daily. Make sure you take several deep breaths an hour despite the pain to reduce the risk of developing a secondary pneumonia. Follow up with your primary care provider in 1-2 days. Prescriptions: Lidocaine 5% Patch [Lidoderm 5% Patch] 1 patch TOPICAL DAILY PRN #30 patch PRN Reason: Pain Ibuprofen [Motrin] 800 mg PO Q8H PRN #30 tab PRN Reason: Pain methocarbamoL [Robaxin-750] 1,500 mg PO TID PRN #30 tab PRN Reason: Pain lisinopriL [Zestril] 10 mg PO DAILY #30 tab Is patient prescribed a controlled substance at d/c from ED?: No Referrals: None,Stated [Primary Care Provider] - 1-2 days Forms: Area PCPs Time of Disposition: 15:32
--- NOTE | 2023-05-27 14:36 | XR ---
EXAMINATION TYPE: XR ribs LT w pa chest xray, 5 views DATE OF EXAM: 05/27/2023 Comparison: 12/18/2020 Clinical History: 67-year-old female Pain after injury Findings: Heart upper limits of normal in size. Aorta and pulmonary vasculature within normal limits. Mild inte rstitial prominence has a chronic appearance. No consolidation or pleural effusion. No displaced left rib fracture seen. Impression: Chronic changes without acute cardiopulmonary process. No displaced left rib fracture seen.
[2023-05-27] MEDS: KETOROLAC 15 MG/ML 1 ML VIAL IM STA (14:55)
[2023-05-27] MEDS: LIDOCAINE 4% PATCH TOPICAL ONE (14:57)
[2023-05-27] MEDS: HYDROmorphone 1 MG/ML 1 ML SYRINGE IM STA (14:59)
[2023-05-27 15:05] VITALS: BP 185/97; PULSE 66; RESP 18
[2023-05-27] MEDS: lisinopriL 10 MG TAB PO STA (15:58)
[2023-05-27] MEDS: traMADol 50 MG STARTER PACK 3 TAB BTL PO STA (15:58)
== END 2023-05-27 16:03 | disposition home or self-care (01) ==
LOC: EC 13:18
DX: S20.212A Contusion of left front wall of thorax, initial encounter (principal); I10 Essential (primary) hypertension; J44.9 Chronic obstructive pulmonary disease, unspecified; Z79.899 Other long term (current) drug therapy; Z88.5 Allergy status to narcotic agent; Z88.1 Allergy status to other antibiotic agents; Z88.8 Allergy status to other drugs, medicaments and biological substances; X58.XXXA Exposure to other specified factors, initial encounter
CPT/HCPCS: 71101; 99283; 96372; J1885

== ENCOUNTER 2023-06-08 12:39 | Emergency (ER) | payer MEDICARE ==
[2023-06-08 12:54] VITALS: RESP 20; TEMP 98.2
--- NOTE | 2023-06-08 13:27 | ED ---
General Adult HPI - General Chief complaint: Recheck/Abnormal Lab/Rx Stated complaint: Abdominal Pain Time Seen by Provider: 06/08/23 12:49 Source: patient, RN notes reviewed, old records reviewed Mode of arrival: ambulatory Limitations: no limitations - History of Present Illness Initial comments: Is a 67-year-old female presents emergency department with chief complaint of left-sided rib pain. Patient states she was the other day and had x-rays after receiving the Heimlich maneuver and states that she heard a pop in her ribs, chest. States pain is getting worse. Patient was sent over from urgent care for further evaluation. Patient does have pleuritic pain - Related Data Home Medications Medication Instructions Recorded Confirmed Albuterol Sulfate [Albuterol 2 puff PO RT-Q4H PRN 06/17/20 06/17/20 Sulfate Hfa] Previous Rx's Medication Instructions Recorded Ascorbic Acid [Vitamin C] 1,000 mg PO DAILY #30 tab 06/20/20 Cholecalciferol [Vitamin D3 (25 100 mcg PO DAILY #30 tablet 06/20/20 Mcg = 1000 Iu)] Ondansetron Odt [Zofran Odt] 4 mg PO Q8HR PRN #20 tab 06/20/20 Pantoprazole Sodium [Protonix] 20 mg PO AC-BID #30 tablet.dr 06/20/20 Zinc Sulfate [Orazinc] 220 mg PO DAILY #30 cap 06/20/20 dexAMETHasone [Decadron] 4 mg PO DAILY #5 tablet 06/20/20 lisinopriL [Zestril] 10 mg PO DAILY #30 tab 06/20/20 Amoxicillin/Potassium Clav 1 tab PO Q12HR #20 tab 12/18/20 [Augmentin 875-125 Tablet] Benzonatate [Tessalon Perles] 100 mg PO TID PRN #15 cap 12/18/20 Ipratropium-Albuterol Nebulize 3 ml INHALATION QID #25 each 12/18/20 [Duoneb 0.5 mg-3 mg/3 ml Soln] predniSONE 50 mg PO DAILY #5 tab 12/18/20 Ibuprofen [Motrin] 800 mg PO Q8H PRN #30 tab 05/27/23 Lidocaine 5% Patch [Lidoderm 5% 1 patch TOPICAL DAILY PRN #30 patch 05/27/23 Patch] lisinopriL [Zestril] 10 mg PO DAILY #30 tab 05/27/23 methocarbamoL [Robaxin-750] 1,500 mg PO TID PRN #30 tab 05/27/23 traMADol HCl [Ultram] 50 mg PO Q6H PRN #12 tab 06/08/23 Allergies Allergy/AdvReac Type Severity Reaction Status Date / Time ketorolac [From Toradol] Allergy Itching Verified 06/08/23 12:44 codeine AdvReac Itching Verified 05/27/23 13:55 erythromycin base AdvReac STOMACH Verified 05/27/23 13:55 PAIN Tetracyclines AdvReac Abdominal Verified 05/27/23 13:55 Pain Review of Systems ROS Statement: Those systems with pertinent positive or pertinent negative responses have been documented in the HPI. ROS Other: All systems not noted in ROS Statement are negative. Past Medical History Past Medical History: COPD, GERD/Reflux, Hypertension, Osteoarthritis (OA) Additional Past Medical History / Comment(s): Recent tx of UTI in Mar 2019,steroids Mar 2019,anemia, vertigo, chronic back pain,SOB-states "hx of lung surgery with scraping" History of Any Multi-Drug Resistant Organisms: None Reported Past Surgical History: Appendectomy, Section, Cholecystectomy, Hysterectomy, Orthopedic Surgery Additional Past Surgical History / Comment(s): bronchoscopy,states "surgery by Dr Wallace-scraped lungs" Past Anesthesia/Blood Transfusion Reactions: No Reported Reaction Past Psychological History: No Psychological Hx Reported Smoking Status: Never smoker Past Alcohol Use History: None Reported Past Drug Use History: None Reported - Past Family History Father Family Medical History: Cancer, Diabetes Mellitus Additional Family Medical History / Comment(s): lung cancer and bone cancer Mother Additional Family Medical History / Comment(s): emphysema Son(s) Family Medical History: Diabetes Mellitus, Dialysis Additional Family Medical History / Comment(s): pacemaker, 2017 General Exam Limitations: no limitations General appearance: alert, in no apparent distress Head exam: Present: atraumatic, normocephalic, normal inspection Neck exam: Present: normal inspection, full ROM. Absent: tenderness, meningismus, lymphadenopathy Respiratory exam: Present: normal lung sounds bilaterally, chest wall tenderness. Absent: respiratory distress, wheezes, rales, rhonchi, stridor Cardiovascular Exam: Present: regular rate, normal rhythm, normal heart sounds. Absent: systolic murmur, diastolic murmur, rubs, gallop, clicks GI/Abdominal exam: Present: soft, normal bowel sounds. Absent: distended, tenderness, guarding, rebound, rigid Course Vital Signs 06/08/23 06/08/23 12:41 14:34 Temperature 98.2 F Pulse Rate 92 54 L Respiratory 20 20 Rate Blood Pressure 195/86 200/93 O2 Sat by Pulse 98 100 Oximetry Medical Decision Making - Medical Decision Making Was pt. sent in by a medical professional or institution (, [facility], PROFESSIONAL SHOPPER, urgent care, hospital, or usp...) When possible be specific @ -No Did you speak to anyone other than the patient for history (EMS, parent, family, police, friend...)? What history was obtained from this source @ -No Did you review nursing and triage notes (agree or disagree)? Why? @ -I reviewed and agree with nursing and triage notes Were old charts reviewed (outside hosp., previous admission, EMS record, old EKG, old radiological studies, urgent care reports/EKG's, usp records)? Report findings @ -[Reviewed recent x-ray Differential Diagnosis (chest pain, altered mental status, abdominal pain women, abdominal pain men, vaginal bleeding, weakness, fever, dyspnea, syncope, headache, dizziness, GI bleed, back pain, seizure, CVA, palpatations, mental health, musculoskeletal)? @ -Rib contusion, rib fracture, pneumothorax EKG interpreted by me (3pts min.). @ -[None X-rays interpreted by me (1pt min.). @ -[None done CT interpreted by me (1pt min.). @ -CT of the chest shows no evidence of pneumothorax or rib fracture U/S interpreted by me (1pt. min.). @ -None done What testing was considered but not performed or refused? (CT, X-rays, U/S, labs)? Why? @ -None What meds were considered but not given or refused? Why? @ -None Did you discuss the management of the patient with other professionals (professionals i.e. [facility] Dexter, PROFESSIONAL SHOPPER, lab, RT, psych nurse, socially responsible investment adviser, geophysical operator, teacher, chief lending officer, piano case and bench assembler)? Give summary @ -No Was smoking cessation discussed for >3mins.? @ -No Was critical care preformed (if so, how long)? @ -No Were there social determinants of health that impacted care today? How? (Homelessness, low income, unemployed, alcoholism, drug addiction, transportation, low edu. Level, literacy, decrease access to med. care, care home, rehab)? @ -No Was there de-escalation of care discussed even if they declined (Discuss DNR or withdrawal of care, Hospice)? DNR status @ -No What co-morbidities impacted this encounter? (DM, HTN, Smoking, COPD, CAD, Cancer, CVA, ARF, Chemo, Hep., AIDS, mental health diagnosis, sleep apnea, morbid obesity)? @ -None Was patient admitted / discharged? Hospital course, mention meds given and route, prescriptions, significant lab abnormalities, going to OR and other pertinent info. @ -Discharged patient has evidence of rib contusion no acute fracture. Patient discharged with analgesics return for as discussed. Undiagnosed new problem with uncertain prognosis? @ -No Drug Therapy requiring intensive monitoring for toxicity (Heparin, Nitro, Insulin, Cardizem)? @ -No Were any procedures done? @ -No Diagnosis/symptom? @ -Rib contusion Acute, or Chronic, or Acute on Chronic? @ -Acute Uncomplicated (without systemic symptoms) or Complicated (systemic symptoms)? @ -Uncomplicated Side effects of treatment? @ -No Exacerbation, Progression, or Severe Exacerbation? @ -No Poses a threat to life or bodily function? How? (Chest pain, [place], [place], pneumonia, PE, COPD, DKA, ARF, appy, cholecystitis, CVA, Diverticulitis, Homicidal, Suicidal, threat to staff... and all critical care pts) @ -No Disposition Clinical Impression: Contusion of rib on left side Disposition: HOME SELF-CARE Condition: Stable Instructions (If sedation given, give patient instructions): Rib Contusion (ED) Additional Instructions: Please return to the Emergency Department if symptoms worsen or any other concerns. Prescriptions: traMADol HCl [Ultram] 50 mg PO Q6H PRN #12 tab PRN Reason: Pain Is patient prescribed a controlled substance at d/c from ED?: No Referrals: None,Stated [Primary Care Provider] - 1-2 days Time of Disposition: 14:24
[2023-06-08] MEDS: lisinopriL 10 MG TAB PO STA (14:56)
[2023-06-08] MEDS: traMADol 50 MG TAB PO STA (14:56)
--- NOTE | 2023-06-08 15:04 | CT ---
EXAMINATION TYPE: CT chest wo con CT DLP: 265.1 mGycm, Automated exposure control for dose reduction was used. DATE OF EXAM: 06/08/2023 1:28 PM COMPARISON: Chest radiograph from same day. Multiple CTs of the chest with most recent on 04/21/2019. CLINICAL INDICATION:Female, 67 years old with history of pain, left; PHH, Left sided rib pain TECHNIQUE: Multiple axial images were obtained through the chest. Sagittal and coronal reformats were created for review. Contrast used: mL of (None if empty) Oral contrast used: (None if empty) FINDINGS: LUNGS/ PLEURA: The lung parenchyma appears unremarkable. AIRWAY: Patent and unremarkable. HEART: Heart is mildly enlarged for size. MEDIASTINUM: No gross evidence of adenopathy. VASCULATURE: No aortic aneurysm. MUSCULOSKELETAL: Cortical buckling of left rib 9 series 205 image 37 multilevel degeneration changes throughout the spine. SOFT TISSUES/LYMPH NODES: Unremarkable. LOWER NECK: No significant findings. UPPER ABDOMEN: The gallbladder is surgically absent. IMPRESSION: Cortical buckling suggested left rib 9, correlate with tenderness for nondisplaced fracture. Follow up recommendations for incidental pulmonary nodules, if there are any, are per [employer] or [employer]. [email or web address].org/[email or web address]?lang=us
[2023-06-08 15:46] VITALS: BP 186/95; PULSE 76
== END 2023-06-08 15:30 | disposition home or self-care (01) ==
LOC: EC 12:39
DX: S20.212A Contusion of left front wall of thorax, initial encounter (principal); J44.9 Chronic obstructive pulmonary disease, unspecified; I10 Essential (primary) hypertension; Z79.51 Long term (current) use of inhaled steroids; Z88.1 Allergy status to other antibiotic agents; Z88.6 Allergy status to analgesic agent; Z88.5 Allergy status to narcotic agent; Z90.49 Acquired absence of other specified parts of digestive tract; X50.1XXA Overexertion from prolonged static or awkward postures, initial encounter
CPT/HCPCS: 71250; 99284

== ENCOUNTER 2023-12-06 12:56 | Emergency (ER) | payer MEDICARE ==
[2023-12-06 13:10] VITALS: TEMP 98.4
--- NOTE | 2023-12-06 13:30 | ED ---
General Adult HPI - General Chief complaint: Headache Stated complaint: Headache,Nausea,Weakness Time Seen by Provider: 12/06/23 13:10 Source: patient, RN notes reviewed Mode of arrival: ambulatory Limitations: no limitations - History of Present Illness Initial comments: 68-year-old female presents emergency for chief complaint of dental pain and headaches. Patient states that she multiple teeth pulled on 11/26/2023 and has been experiencing dental pain since. She has been taking Tylenol at home with minimal relief. Denies fevers, chills, nausea, vomiting. Patient states that she is attempted to contact her oral surgeon however the practice is closed over the weekend. she presents for pain maangement. No other acute complaints at this time - Related Data Home Medications Medication Instructions Recorded Confirmed Cyanocobalamin (Vitamin B-12) 1,000 mcg PO DAILY 06/08/23 06/08/23 [Vitamin B-12] Previous Rx's Medication Instructions Recorded Ascorbic Acid [Vitamin C] 1,000 mg PO DAILY #30 tab 06/20/20 Cholecalciferol [Vitamin D3 (25 100 mcg PO DAILY #30 tablet 06/20/20 Mcg = 1000 Iu)] lisinopriL [Zestril] 10 mg PO DAILY #30 tab 06/20/20 traMADol HCl [Ultram] 50 mg PO Q6H PRN #12 tab 06/08/23 Amoxicillin 875 mg PO Q12HR #20 tablet 12/06/23 Meloxicam 7.5 mg PO DAILY PRN #7 tab 12/06/23 Allergies Allergy/AdvReac Type Severity Reaction Status Date / Time ketorolac [From Toradol] Allergy Itching Verified 12/06/23 13:10 codeine AdvReac Itching Verified 12/06/23 13:10 erythromycin base AdvReac STOMACH Verified 12/06/23 13:10 PAIN Tetracyclines AdvReac Abdominal Verified 12/06/23 13:10 Pain Review of Systems ROS Statement: Those systems with pertinent positive or pertinent negative responses have been documented in the HPI. ROS Other: All systems not noted in ROS Statement are negative. Past Medical History Past Medical History: COPD, GERD/Reflux, Hypertension, Osteoarthritis (OA) Additional Past Medical History / Comment(s): Recent tx of UTI in Mar 2019,steroids Mar 2019,anemia, vertigo, chronic back pain,SOB-states "hx of lung surgery with scraping" History of Any Multi-Drug Resistant Organisms: None Reported Past Surgical History: Appendectomy, Section, Cholecystectomy, Hysterectomy, Orthopedic Surgery Additional Past Surgical History / Comment(s): bronchoscopy,states "surgery by Dr Wallace-scraped lungs" Past Anesthesia/Blood Transfusion Reactions: No Reported Reaction Past Psychological History: No Psychological Hx Reported Smoking Status: Never smoker Past Alcohol Use History: None Reported Past Drug Use History: None Reported - Past Family History Father Family Medical History: Cancer, Diabetes Mellitus Additional Family Medical History / Comment(s): lung cancer and bone cancer Mother Additional Family Medical History / Comment(s): emphysema Son(s) Family Medical History: Diabetes Mellitus, Dialysis Additional Family Medical History / Comment(s): pacemaker, 2017 General Exam - General Exam Comments Initial Comments: Visual Physical Exam Vital signs reviewed General: Well-appearing, nontoxic, no acute distress. Head: Normocephalic, atraumatic Eyes: PERRLA, EOMI ENT: Airway patent Chest: Nonlabored breathing Skin: No visual rash, normal skin tone Neuro: Alert and oriented 3 Musculoskeletal: No gross abnormalities Limitations: no limitations General appearance: alert, in no apparent distress Expanded Teeth exam: Present: other (teeth extraction, no purulence or drainage) Neck exam: Present: normal inspection. Absent: tenderness, meningismus, l ymphadenopathy Respiratory exam: Present: normal lung sounds bilaterally. Absent: respiratory distress, wheezes, rales, rhonchi, stridor Cardiovascular Exam: Present: regular rate, normal rhythm, normal heart sounds. Absent: systolic murmur, diastolic murmur, rubs, gallop, clicks GI/Abdominal exam: Present: soft, normal bowel sounds. Absent: distended, tenderness, guarding, rebound, rigid Extremities exam: Present: normal inspection, full ROM, normal capillary refill. Absent: tenderness, pedal edema, joint swelling, calf tenderness Skin exam: Present: warm, dry, intact, normal color. Absent: rash Course Vital Signs 12/06/23 12/06/23 13:08 16:33 Temperature 98.4 F 98.4 F Pulse Rate 61 68 Respiratory 16 18 Rate Blood Pressure 183/70 168/72 O2 Sat by Pulse 98 98 Oximetry Medical Decision Making - Medical Decision Making Was pt. sent in by a medical professional or institution (Dr., PA, ACID PUMPER, urgent care, hospital, or care home...) When possible be specific @ -No Did you speak to anyone other than the patient for history (EMS, parent, family, police, friend...)? What history was obtained from this source @ -No Did you review nursing and triage notes (agree or disagree)? Why? @ -I reviewed and agree with nursing and triage notes Were old charts reviewed (outside hosp., previous admission, EMS record, old EKG, old radiological studies, urgent care reports/EKG's, care home records)? Report findings @ -No old charts were reviewed Differential Diagnosis (chest pain, altered mental status, abdominal pain women, abdominal pain men, vaginal bleeding, weakness, fever, dyspnea, syncope, headache, dizziness, GI bleed, back pain, seizure, CVA, palpatations, mental health, musculoskeletal)? @ -dental pain, dental abscess, dental caries, pulpitis, this is not all inclusive EKG interpreted by me (3pts min.). @ -None X-rays interpreted by me (1pt min.). @ -None done CT interpreted by me (1pt min.). @ -None done U/S interpreted by me (1pt. min.). @ -None done What testing was considered but not performed or refused? (CT, X-rays, U/S, labs)? Why? @ -None What meds were considered but not given or refused? Why? @ -None Did you discuss the management of the patient with other professionals (professionals i.e. ABAD Dexter, ACID PUMPER, lab, RT, psych nurse, manager social media, pre sales technical consultant, teacher, chief clinical officer, top case assembler)? Give summary @ -No Was smoking cessation discussed for >3mins.? @ -No Was critical care preformed (if so, how long)? @ -No Were there social determinants of health that impacted care today? How? (Homelessness, low income, unemployed, alcoholism, drug addiction, transportation, low edu. Level, literacy, decrease access to med. care, half-way, rehab)? @ -No Was there de-escalation of care discussed even if they declined (Discuss DNR or withdrawal of care, Hospice)? DNR status @ -No What co-morbidities impacted this encounter? (DM, HTN, Smoking, COPD, CAD, Cancer, CVA, ARF, Chemo, Hep., AIDS, mental health diagnosis, sleep apnea, morbid obesity)? @ -None Was patient admitted / discharged? Hospital course, mention meds given and route, prescriptions, significant lab abnormalities, going to OR and other pertinent info. @ -Discharge. 68-year-old female with dental pain and headaches. On examination patient noted to have multiple extracted teeth with no signs of dental abscess or purulence. Patient's vitals are stable. She is provided with dose of oral pain medication emergency department presented prescription for meloxicam and amoxicillin to cover for possible infection. Recommend that patient contact his oral surgeon in the morning to schedule follow-up appointment for further evaluation. All questions answered at bedside and strict return parameters discussed with the patient she is verbalized un derstanding. Case discussed with Dr. Espinal Undiagnosed new problem with uncertain prognosis? @ -No Drug Therapy requiring intensive monitoring for toxicity (Heparin, Nitro, Insulin, Cardizem)? @ -No Were any procedures done? @ -No Diagnosis/symptom? @ -dental pain Acute, or Chronic, or Acute on Chronic? @ -Acute Uncomplicated (without systemic symptoms) or Complicated (systemic symptoms)? @ -Uncomplicated Side effects of treatment? @ -No Exacerbation, Progression, or Severe Exacerbation? @ -No Poses a threat to life or bodily function? How? (Chest pain, [place], [place], pneumonia, PE, COPD, DKA, ARF, appy, cholecystitis, CVA, Diverticulitis, Homicidal, Suicidal, threat to staff... and all critical care pts) @ -No Disposition Clinical Impression: Pain, dental Disposition: HOME SELF-CARE Condition: Good Instructions (If sedation given, give patient instructions): Toothache (ED) Additional Instructions: Return to the emergency department for any new or worsening symptoms. Complete full course of antibiotics as prescribed. Take prescribed medication only as needed for pain relief. Recommend follow-up with oral surgeon as scheduled. Prescriptions: Amoxicillin 875 mg PO Q12HR #20 tablet Meloxicam 7.5 mg PO DAILY PRN #7 tab PRN Reason: Pain Is patient prescribed a controlled substance at d/c from ED?: No Referrals: None,Stated [Primary Care Provider] - 1-2 days Time of Disposition: 15:59
[2023-12-06] MEDS: MELOXICAM 7.5 MG TAB PO STA (16:11)
[2023-12-06 16:36] VITALS: BP 168/72; PULSE 68; RESP 18
== END 2023-12-06 16:37 | disposition home or self-care (01) ==
LOC: EC 12:56
DX: K08.89 Other specified disorders of teeth and supporting structures (principal)
CPT/HCPCS: 99284

== ENCOUNTER → 2024-06-23 | Outpatient (CLI) | payer MEDICARE ==
[2024-06-23 14:43] LABS: HCT 40.8 % (37.2-46.3); HGB 12.6 g/dL (12.0-15.0); MCH 27.9 pg (27.0-32.0); MCHC 30.9 g/dL (32.0-37.0); MCV 90.5 FL (80.0-97.0); Mean Platelet Volume 12.1 FL (9.5-12.2); NRBC Per 100 WBC 0 X 10*3/uL (0.00-0.01); Platelet Count 260 X 10*3/uL (140-440); RBC 4.51 X 10*6/uL (4.10-5.20); RDW 13.8 % (11.5-14.5); WBC 5.74 X 10*3/uL (4.50-10.00)
[2024-06-23 15:11] LABS: NT-Pro-B-Type Natriuretic Pept 235 pg/mL (0-125)
[2024-06-23 15:15] LABS: ALT 15 U/L (8-44); AST 19 U/L (13-35); Albumin 4.4 g/dL (3.8-4.9); Albumin/Globulin Ratio 1.52 Ratio (1.60-3.17); Alkaline Phosphatase 45 U/L (41-126); BUN/Creat Ratio 19.14 Ratio (12.00-20.00); Blood Urea Nitrogen 13.4 mg/dL (9.0-27.0); Calcium 9.4 mg/dL (8.7-10.3); Carbon Dioxide 26.4 mmol/L (21.6-31.8); Chloride 104 mmol/L (96-109); Chol/HDL Ratio 4.47 Ratio; Globulin 2.9 g/dL (1.6-3.3); Glucose 113 mg/dL (70-110); LDL Cholesterol,Calculated 159.7 mg/dL (0.0-131.0); Potassium 4.4 mmol/L (3.5-5.5); Sodium 141 mmol/L (135-145); Total Bilirubin 0.6 mg/dL (0.3-1.2); Total Protein 7.3 g/dL (6.2-8.2); VLDL Calculation 18.84 mg/dL (5.00-40.00)
== END | disposition home or self-care (01) ==
LOC: LABWHC1 08:44
PROVIDERS: ATTEND Family Medicine
DX: I10 Essential (primary) hypertension (principal); B89 Unspecified parasitic disease; Z79.899 Other long term (current) drug therapy
CPT/HCPCS: 36415; 80053; 80061; 82785; 83036; 83880; 84443; 85027

== ENCOUNTER 2024-07-18 09:42 | Emergency (ER) | payer MEDICARE ==
[2024-07-18 10:01] VITALS: TEMP 98.3
--- NOTE | 2024-07-18 10:29 | XR ---
EXAMINATION TYPE: XR chest 2V DATE OF EXAM: 07/18/2024 10:14 AM COMPARISON: 05/27/2023 CLINICAL INDICATION: Female, 68 years old with history of productive cough: Shortness of breath TECHNIQUE: XR chest 2V views of the chest are obtained. FINDINGS: Scattered senescent parenchymal changes noted. Hyperinflation compatible with COPD. No evidence for infiltrate. No evidence for atelectasis. Heart size is stable. Mediastinal structures are stable and grossly unremarkable. No evidence for hilar prominence. Degenerative changes dorsal spine. IMPRESSION: 1. No evidence for acute pulmonary disease. [facility], , 07/18/2024 10:27 AM
[2024-07-18 11:08] LABS: Influenza A Not Detected (Not Detectd); Influenza B Not Detected (Not Detectd); RSV Not Detected (Not Detectd)
--- NOTE | 2024-07-18 12:10 | ED ---
General Adult HPI - General Chief complaint: Recheck/Abnormal Lab/Rx Stated complaint: cough,headache Time Seen by Provider: 07/18/24 10:16 Source: patient, RN notes reviewed Mode of arrival: ambulatory Limitations: no limitations - History of Present Illness Initial comments: 68-year-old female presents emergency department with cough congestion. Patient states not felt well for last few days. She has had increasing chest congestion history of COPD. She has productive cough. Patient denies any known fever but states she has felt chills. No abdominal complaints no chest pain no other complaints. - Related Data Home Medications Medication Instructions Recorded Confirmed Cyanocobalamin (Vitamin B-12) 1,000 mcg PO DAILY 06/08/23 06/08/23 [Vitamin B-12] Previous Rx's Medication Instructions Recorded Ascorbic Acid [Vitamin C] 1,000 mg PO DAILY #30 tab 06/20/20 Cholecalciferol [Vitamin D3 (25 100 mcg PO DAILY #30 tablet 06/20/20 Mcg = 1000 Iu)] lisinopriL [Zestril] 10 mg PO DAILY #30 tab 06/20/20 traMADol HCl [Ultram] 50 mg PO Q6H PRN #12 tab 06/08/23 Amoxicillin 875 mg PO Q12HR #20 tablet 12/06/23 Meloxicam 7.5 mg PO DAILY PRN #7 tab 12/06/23 Amoxic-Pot Clav 875-125Mg 1 tab PO Q12HR #20 tab 07/18/24 [Augmentin 875-125] predniSONE 50 mg PO DAILY #5 tab 07/18/24 Allergies Allergy/AdvReac Type Severity Reaction Status Date / Time ketorolac [From Toradol] Allergy Itching Verified 07/18/24 10:01 codeine AdvReac Itching Verified 07/18/24 10:01 erythromycin base AdvReac STOMACH Verified 07/18/24 10:01 PAIN Tetracyclines AdvReac Abdominal Verified 07/18/24 10:01 Pain Review of Systems ROS Statement: Those systems with pertinent positive or pertinent negative responses have been documented in the HPI. ROS Other: All systems not noted in ROS Statement are negative. Past Medical History Past Medical History: COPD, GERD/Reflux, Hypertension, Osteoarthritis (OA) Additional Past Medical History / Comment(s): Recent tx of UTI in Mar 2019,steroids Mar 2019,anemia, vertigo, chronic back pain,SOB-states "hx of lung surgery with scraping" History of Any Multi-Drug Resistant Organisms: None Reported Past Surgical History: Appendectomy, Section, Cholecystectomy, Hysterectomy, Orthopedic Surgery Additional Past Surgical History / Comment(s): bronchoscopy,states "surgery by Dr Wallace-scraped lungs" Past Anesthesia/Blood Transfusion Reactions: No Reported Reaction Past Psychological History: No Psychological Hx Reported Smoking Status: Never smoker Past Alcohol Use History: None Reported Past Drug Use History: None Reported - Past Family History Father Family Medical History: Cancer, Diabetes Mellitus Additional Family Medical History / Comment(s): lung cancer and bone cancer Mother Additional Family Medical History / Comment(s): emphysema Son(s) Family Medical History: Diabetes Mellitus, Dialysis Additional Family Medical History / Comment(s): pacemaker, 2017 General Exam Limitations: no limitations General appearance: alert, in no apparent distress Head exam: Present: atraumatic, normocephalic, normal inspection Eye exam: Present: normal appearance, PERRL, EOMI. Absent: scleral icterus, conjunctival injection, periorbital swelling ENT exam: Present: normal exam, mucous membranes moist Neck exam: Present: normal inspection, full ROM. Absent: tenderness, meningismus, lymphadenopathy Respiratory exam: Present: wheezes, rhonchi. Absent: normal lung sounds bilaterally, respiratory distress, rales, stridor Cardiovascular Exam: Present: regular rate, normal rhythm, normal heart sounds. Absent: systolic murmur, diastolic murmur, rubs, gallop, clicks Course Vital Signs 07/18/24 09:58 Temperature 98.3 F Pulse Rate 62 Respiratory 18 Rate Blood Pressure 204/95 O2 Sat by Pulse 98 Oximetry Medical Decision Making - Medical Decision Making Was pt. sent in by a medical professional or institution (, PA, ULTRASOUND SPEC, urgent care, hospital, or correction...) When possible be specific @ -No Did you speak to anyone other than the patient for history (EMS, parent, family, police, friend...)? What history was obtained from this source @ -No Did you review nursing and triage notes (agree or disagree)? Why? @ -I reviewed and agree with nursing and triage notes Were old charts reviewed (outside hosp., previous admission, EMS record, old EKG, old radiological studies, urgent care reports/EKG's, correction records)? Report findings @ -No old charts were reviewed Differential Diagnosis (chest pain, altered mental status, abdominal pain women, abdominal pain men, vaginal bleeding, weakness, fever, dyspnea, syncope, headache, dizziness, GI bleed, back pain, seizure, CVA, palpatations, mental health, musculoskeletal)? @COVID 19, RSV, influenza, pneumonia, acute bronchitis, URI, this list is not all inclusive EKG interpreted by me (3pts min.). @ -[None X-rays interpreted by me (1pt min.). @ -Chest x-ray shows no definite pneumothorax, acute cardiopulmonary process no infiltrate CT interpreted by me (1pt min.). @ -None done U/S interpreted by me (1pt. min.). @ -None done What testing was considered but not performed or refused? (CT, X-rays, U/S, labs)? Why? @ -None What meds were considered but not given or refused? Why? @ -None Did you discuss the management of the patient with other professionals (professionals i.e. , PA, ULTRASOUND SPEC, lab, RT, psych nurse, social scientist, pizza delivery, te acher, admitting officer, residential case manager)? Give summary @ -No Was smoking cessation discussed for >3mins.? @ -No Was critical care preformed (if so, how long)? @ -No Were there social determinants of health that impacted care today? How? (Homelessness, low income, unemployed, alcoholism, drug addiction, transportation, low edu. Level, literacy, decrease access to med. care, usp, rehab)? @ -No Was there de-escalation of care discussed even if they declined (Discuss DNR or withdrawal of care, Hospice)? DNR status @ -No What co-morbidities impacted this encounter? (DM, HTN, Smoking, COPD, CAD, Cancer, CVA, ARF, Chemo, Hep., AIDS, mental health diagnosis, sleep apnea, morbid obesity)? @ -None Was patient admitted / discharged? Hospital course, mention meds given and route, prescriptions, significant lab abnormalities, going to OR and other pertinent info. @Charge patient has a history of COPD patient has acute tracheobronchitis. Patient discharged on Augmentin, steroids. Return for as discussed. Undiagnosed new problem with uncertain prognosis? @ -No Drug Therapy requiring intensive monitoring for toxicity (Heparin, Nitro, Insulin, Cardizem)? @ -No Were any procedures done? @ -No Diagnosis/symptom? @ -Acute tracheobronchitis, COPD Acute, or Chronic, or Acute on Chronic? @ -Acute Uncomplicated (without systemic symptoms) or Complicated (systemic symptoms)? @ -Uncomplicated Side effects of treatment? @ -No Exacerbation, Progression, or Severe Exacerbation? @ -No Poses a threat to life or bodily function? How? (Chest pain, [place], [place], pneumonia, PE, COPD, DKA, ARF, appy, cholecystitis, CVA, Diverticulitis, Homicidal, Suicidal, threat to staff... and all critical care pts) @ -No - Lab Data Lab Results 07/18/24 Range/Units 10:04 Influenza Type A (PCR) Not Detected (Not Detectd) Influenza Type B (PCR) Not Detected (Not Detectd) RSV (PCR) Not Detected (Not Detectd) SARS-CoV-2 (PCR) Not Detected (Not Detectd) Disposition Clinical Impression: Acute tracheobronchitis Disposition: HOME SELF-CARE Condition: Stable Instructions (If sedation given, give patient instructions): Upper Respiratory Infection (ED) Additional Instructions: Please return to the Emergency Department if symptoms worsen or any other concerns. Prescriptions: Amoxic-Pot Clav 875-125Mg [Augmentin 875-125] 1 tab PO Q12HR #20 tab predniSONE 50 mg PO DAILY #5 tab Is patient prescribed a controlled substance at d/c from ED?: No Referrals: Malcom Chauhan MD [Primary Care Provider] - 1-2 days Time of Disposition: 12:10
[2024-07-18 12:19] VITALS: BP 121/76; PULSE 55; RESP 16
== END 2024-07-18 12:20 | disposition home or self-care (01) ==
LOC: EC 09:42
DX: J44.0 Chronic obstructive pulmonary disease with (acute) lower respiratory infection (principal); Z88.1 Allergy status to other antibiotic agents; Z88.6 Allergy status to analgesic agent; Z88.5 Allergy status to narcotic agent; Z88.8 Allergy status to other drugs, medicaments and biological substances
CPT/HCPCS: 71046; 87636; 99284

== ENCOUNTER → 2024-09-01 | Outpatient (CLI) | payer MEDICARE ==
--- NOTE | 2024-09-01 13:10 | CT ---
EXAMINATION TYPE: CT chest wo con DATE OF EXAM: 09/01/2024 12:58 PM COMPARISON: 06/08/2023 CLINICAL INDICATION: Female, 68 years old with history of R07.9 CHEST PAIN, UNSPECIFIED; PHH, RT side chest pain, previous lung sx RT side. TECHNIQUE: Multiple axial images were obtained through the chest. Sagittal and coronal reformats were created for review. MIP was performed on a separate workstation. Contrast used: mL of (None if empty) Oral contrast used: (None if empty) CT DLP: 258.50 mGycm, Automated exposure control for dose reduction was used. FINDINGS: LUNGS/ PLEURA: No focal consolidation, pneumothorax or pleural effusion. AIRWAY: Patent and unremarkable. HEART: Size within normal limits. No significant coronary artery calcifications. MEDIASTINUM: No gross evidence of adenopathy. VASCULATURE: No aortic aneurysm. MUSCULOSKELETAL: Moderate disc degeneration changes are present throughout the thoracolumbar spine se condary to osteophyte formation and facet joint arthropathy. SOFT TISSUES/LYMPH NODES: Unremarkable. LOWER NECK: No significant findings. UPPER ABDOMEN: Gallbladder is surgically absent. IMPRESSION: No evidence for acute thoracic process. No displaced rib fracture visualized. Previous left rib 9 fra cture is unchanged. Follow up recommendations for incidental pulmonary nodules, if there are any, are per [employer] or [employer]. https://radiopaedia.org/articles/zmsxkmudan-xigthtb-xgvyhgxdv-offads-[email or web address]-[email or web address]?lang=us [facility], , 09/01/2024 1:08 PM
== END | disposition home or self-care (01) ==
LOC: RADCTMAIN 12:38
PROVIDERS: ATTEND Family Medicine
DX: R07.9 Chest pain, unspecified (principal); Z87.59 Personal history of other complications of pregnancy, childbirth and the puerperium
CPT/HCPCS: 71250